=== PATIENT | female | born 1970 | race Caucasian/White ===

== ENCOUNTER 2024-11-30 09:21 | Emergency (ER) | payer MEDICAID, SELFPAY ==
--- OUTSIDE RECORDS SUMMARY | 2020-06-07 14:28 | XMS_ITS | Encounter Summary ---
Author Organization [facility] Address [address] [place] [address] Care Team Providers Care Home Care And Home Health Aides Teacher Name Role Phone Vianey Ann MD Primary Care Provider [phone] Reason for Referral * Hospital - Outpatient (Routine) - Closed Specialty Diagnoses / Procedures Referred By Nisa lopez Referred To Contact Sleep Medicine Diagnoses Snoring Obstructive sleep apnea, adult Procedures Home Sleep Study Tony Chavarria MD [address] [place] [address] Phone: tel: fax: Tony Chavarria MD [facility] [address] [address] Phone: tel: fax: Referral ID Status Reason Start Date Expiration Date Visits Re quested Visits Authorized [id number] Closed 05/24/2020 07/23/2020 1 1 Reason for Visit * Hospital - Outpatient (Routine) - Closed Specialty Diagnoses / Procedures Referred By Nisa lopez Referred To Contact Sleep Medicine Diagnoses Snoring Obstructive sleep apnea, adult Procedures Home Sleep Study Tony Chavarria MD [address] [place] [address], [place] [address] Phone: tel: fax: Tony Chavarria MD [address] [facility] [address] [place] [address] Phone: tel: fax: Referral ID Status Reason Start Date Expiration Date Visits Re quested Visits Authorized [id number] Closed 05/24/2020 07/23/2020 1 1 Encounter Details Date Type Department Care Team (Latest Contact Info) Description 06/07/2020 2:28 PM EDT Hospital Encounter [facility] [address] [facility] [address] [place] [address] Tony Chavarria MD [address] [address], [facility] [address] [place] [address] Snoring; Obstructive sleep apnea, adult [...] Care Team (Late st Contact Info) Description 12/26/2024 10:15 AM EST Office Visit [facility] PRIMARY CARE 107 [facility] [address] [place] [address] Vianey Ann MD 107 [facility] 200 [place] [address] 03/16/2025 8:15 AM EST Office Visit [facility]IMARY [facility] 107 [facility] 200 [place] [address] Vianey Ann MD [address] [facility] 200 [place] [address] 06/28/2025 11:30 AM EDT Office Visit [facility] CARDIOLOGY [address] [place] [address] Cindy Scherer APRN [address] [place] [address] [place] [address] documented as of this encounter [...] index is 37. Patient presents with an [place] Sleepiness Scale of 12/24 Methods used for Home Sleep Testing: Patient had a home sleep test with an [employer] One device that measured airflow at the [...] and follow-up with Dr. Seth Chavarria MD [facility] Sleep Medicine Pulmonary and Critical Care Medicine [...] documented as of this encounter Care Teams Home Care And Home Health Aides Teacher Relationship Specialty Start Date End Date Vianey Ann MD [address] [place] [address] PCP - General Family Medicine 10/19/14 documented as of this encounter
--- OUTSIDE RECORDS SUMMARY | 2020-07-18 19:45 | XMS_ITS | Encounter Summary ---
Author Organization [facility] Address [address] [place] [address] Care Team Providers Care Risk Investigator Name Role Phone Vianey Ann MD Primary Care Provider [phone] Reason for Referral * Hospital - Outpatient (Routine) - Closed Specialty Diagnoses / Procedures Referred By Nisa lopez Referred To Contact Sleep Medicine Diagnoses ROZINA (obstructive sleep apnea) Snoring Procedures Polysomnography 4 or More Parameters Tony Chavarria MD [address] [address], [facility] [address] [place] [address] Phone: tel: fax: [facility] [address] [address] Phone: tel: fax: Referral ID Status Reason Start Date Expiration Date Visits Re quested Visits Authorized [id number] Closed 06/17/2020 06/17/2021 1 1 Reason for Visit * Hospital - Outpatient (Routine) - Closed Specialty Diagnoses / Procedures Referred By Nisa lopez Referred To Contact Sleep Medicine Diagnoses ROZINA (obstructive sleep apnea) Snoring Procedures Polysomnography 4 or More Parameters Tony Chavarria MD 9 [facility] 1, [facility] [address] [place] [address] Phone: tel: fax: [facility] [address] [address] [place] [address] Phone: tel: fax: Referral ID Status Reason Start Date Expiration Date Visits Re quested Visits Authorized [id number] Closed 06/17/2020 06/17/2021 1 1 Encounter Details Date Type Department Care Team (Latest Contact Info) Description 07/18/2020 7:45 PM EDT Hospital Encounter [facility] [address] [place] [id number] Tony Chavarria MD [address] [place] [address], [place] [id number] ROZINA (obstructive sleep apnea); Snoring Social History [...] Description 12/26/2024 10:15 AM EST Office Visit [facility] [address] [address] Vianey Ann MD [address] [address] 03/16/2025 8:15 AM EST Office Visit [facility] [address] [address] Vianey Ann MD [address] [address] 06/28/2025 11:30 AM EDT Office Visit [facility] [address] [place] [address] Cindy Scherer APRN [address] [place] [address] [place] [address] documented as of this encounter Procedures Procedure [...] index is 37. Patient presents with an [place] Sleepiness Scale of 12/24 Methods used for [...] and follow-up with Dr. Seth Chavarria MD [facility] Sleep Medicine Pulmonary and [...] documented as of this encounter Care Teams Risk Investigator Relationship Specialty Start Date End Date Vianey Ann MD [address] [place] [address] PCP - General Family Medicine 10/19/14 documented as of this encounter
--- OUTSIDE RECORDS SUMMARY | 2020-08-22 08:00 | XMS_ITS | Encounter Summary ---
Author Organization [facility] Address [address] [place] [address] Care Team Providers Care Cdl B Driver Name Role Phone Vianey Ann MD Primary Care Provider [phone] Reason for Referral * Diagnostic Imaging (Routine) - Closed Specialty Diagnoses / Procedures Referred By Contanthony t Referred To Contact Sleep Medicine Diagnoses Excessive daytime sleepiness Insomnia, unspecified type Procedures EEG [place], ALEKS [address] [address], [address] [address] Phone: tel: fax: [facility] [address] [place] [address] Phone: tel: Referral ID Status Reason Start Date Expiration Date Visits Re quested Visits Authorized [id number] Closed 07/25/2020 07/25/2021 1 1 Reason for Visit * Diagnostic Imaging (Routine) - Closed Specialty Diagnoses / Procedures Referred By Contac t Referred To Contact Sleep Medicine Diagnoses Excessive daytime sleepiness Insomnia, unspecified type Procedures EEG [place] APRN [address] [address], [address] [address] Phone: tel: fax: [facility] [address] [place] [address] Phone: tel: Referral ID Status Reason Start Date Expiration Date Visits Re quested Visits Authorized [id number] Closed 07/25/2020 07/25/2021 1 1 Encounter Details Date Type Department Care Team (Latest Contact Info) Description 08/22/2020 8:00 AM EDT Hospital Encounter [facility] [address] [place] [address] [place], TASSEL CLIPPER 789 [facility] 1, [address] [place] [address] Excessive daytime sleepiness; Insomnia, unspecified [...] Description 12/26/2024 10:15 AM EST Office Visit [facility] [address] [address] Vianey Ann MD [address] [address] 03/16/2025 8:15 AM EST Office Visit [facility] [address] [address] Vianey Ann MD [address] [facility] 200 [place] [address] 06/28/2025 11:30 AM EDT Office Visit [facility] [address] [place] [address] Cindy Scherer APRN [address] [place] [address] documented as of this encounter [...] seen This report is transcribed using the [employer] dictation system. Narrative NEUROLOGY - 08/22/2020 10:24 [...] documented as of this encounter Care Teams Cdl B Driver Relationship Specialty Start Date End Date Vianey Ann MD [address] [place] [address] PCP - General Family Medicine 10/19/14 documented as of this encounter
[2024-11-30 09:31] VITALS: BP 135/60; PULSE 93; O2SAT 98
[2024-11-30 09:32] VITALS: BP 135/60; PULSE 63; RESP 18; TEMP 36.6; O2SAT 99; BMI 32.8
[2024-11-30 09:34] LABS: Color,Urine YELLOW (Yellow); Glucose,Urine (UA) Negative (Negative); Ketones,Urine Negative (Negative); Leukocyte Esterase,Urine Negative (Negative); Microscopic, Urine URINE MICROSCOPIC (MICROSCOPIC); PH,Urine 6.0 (5.0-8.5); Protein,Urine TRACE (Negative); Specific Gravity, Urine 1.025 (1.005-1.030); Urobilinogen,Urine 1.0 EU/dl (0.2)
--- NOTE | 2024-11-30 09:38 | ED_ITS ---
Discharge Plan Disposition Patient Disposition: Home, Self-Care Prescriptions Prescriptions: New methocarbamol 500 mg tablet 500 mg PO QID PRN (Reason: muscle spasm) Qty: 120 0RF lidocaine 5 % adhesive patch,medicated 1 patch topical DAILY Qty: 15 0RF Rx Instructions: leave on most painful area for up to 12 hrs Referrals Follow up/Referrals: Vianey Ann MD [Primary Care Provider, Medical] - See instructions Activity Restrictions/Add. Instructions Additional Instructions/Restrictions: You likely have a strain of the muscles of your lower back. You can take kqra-[id number] ibuprofen, 600 mg every 6 hours as needed along with 1000 mg of Tylenol every 6 hours as needed. You are being prescribed Robaxin, a muscle relaxer, as well as lidocaine patches. Take these as prescribed. I recommend frequent stretching to keep your back loose. You likely be sore over the next few days. If your symptoms do not improve, or if you have any new or worsening symptoms, or if you become concerned for your health for any reason, return to the emergency department for evaluation. Clinical Impressions Clinical Impression: Strain of lumbar region Instructions Patient Instructions: DI for Low Back Pain Print Language Print Language: Korean Discharge ED Provider: Jairo Hidalgo General Adult HPI General Chief complaint: Back Pain/Injury Stated complaint: AO 11/29 Back Pain Time Seen by Provider: 11/30/24 09:31 Mode of Arrival: Ambulatory Source of Information: Patient Description of Symptoms (Recalled from ER Triage Doc. by RN): Reports lifting a cinder block last night and then began to have lower back pain. History of Present Illness HPI narrative: Beatris Perry is a 54y female with no significant past medical history who comes in for back pain. Patient states that yesterday, she was helping her mom move and was moving several boxes and moved a cinderblock and had an pain in her left lower back above her pelvis. She states that moving makes the pain worse. She states it does not radiate down her leg. She states that she does not have pain in the middle of her back. She has not had fevers. She has not had dysuria or hematuria. She denies any numbness or tingling in her genital area, she denies any weakness in her extremities. She denies any urinary incontinence or retention. She has tried topical Biofreeze without relief. Related Data Previous Rx's ?Medication ?Instructions ?Recorded lidocaine 5 % topical patch 1 patch topical DAILY #15 ea 11/30/24 methocarbamol 500 mg tablet 500 mg PO QID PRN muscle s pasm 11/30/24 #120 tabs Allergies Allergy/AdvReac Type Severity Reaction Status Date / Time No Known Allergies Allergy Verified 11/30/24 09:34 [facility] Disclaimer: The information contained in this section may have been updated after the [place] ent was seen, as this information can be updated by other users. Social History Smoking Status: Never smoker alcohol intake: never current occupational status: employed Travel in the last 8 weeks?: None ROS Obtained: Yes Systems reviewed as appropriate & no additional complaints except as documented Physical Exam General General appearance: alert and in no apparent distress Head Head exam: atraumatic Eye Eye exam: Present normal appearance ENT ENT exam: Present normal external ear exam Neck Neck exam: Present full ROM Chest Chest inspection: Present symmetric chest wall rise Respiratory Respiratory exam: Present normal lung sounds bilaterally; Absent respiratory distress Cardiovascular Cardiovascular exam: Present regular rate and normal rhythm Abdominal Exam Abdominal exam: Present soft; Absent tenderness or guarding Extremities Exam Extremities exam: Present normal inspection Back Exam Back exam: Present normal inspection, tenderness (left lumbar paraspinal tenderness) and paraspinal tenderness; Absent vertebral tenderness Neurological Exam Neurological exam: Present alert and oriented X3; Absent motor sensory deficit (Full strength with plantar and dorsiflexion of bilateral lower extremities. Difficulty lifting left leg off of bed secondary to pain in her left lower back. Pain does not radiate down the leg) Psychiatric Psychiatric exam: Present normal affect Skin Skin exam: Present warm and dry Medical Decision Making Medical Records Screening: Per USPSTF and CDC recommendations, given the prevalence of disease in our region, it is our hospital?s policy to screen for HIV and viral Hepatitis for all patients aged 18 and over and those with ongoing risk factors. Rick Inquiry Pt receiving controlled substance: No Vital Signs: 11/30/24 09:31 11/30/24 09:32 11/30/24 09:40 Temperature 97.9 F Temperature Source Oral Pulse Rate 93 H 89 Pulse Rate [Radial] 63 Respiratory Rate 18 Blood Pressure 135/60 117/70 Blood Pressure [Right Arm] 135/60 Blood Pressure Mean [Right Arm] 85 Blood Pressure Source Blood Pressure Source [Right Arm] Automatic Cuff Blood Pressure Position Blood Pressure Position [Right Arm] Sitting 02 Sat by Pulse Oximetry 98 99 98 Oxygen Delivery Method Room Air Room Air Room Air 11/30/24 10:18 Temperature 98.0 F Temperature Source Oral Pulse Rate 85 Pulse Rate [Radial] Respiratory Rate 18 Blood Pressure 125/85 Blood Pressure [Right Arm] Blood Pressure Mean [Right Arm] Blood Pressure Source Automatic Cuff Blood Pressure Source [Right Arm] Blood Pressure Position Sitting Blood Pressure Position [Right Arm] 02 Sat by Pulse Oximetry Oxygen Delivery Method Room Air Lab Data Lab Results 11/30/24 09:28: Urine Color Yellow, Urine Appearance Sl cloudy, Urine pH 6.0, Ur Specific [place] 1.025, Urine Protein Trace, Urine Glucose (UA) Negative, Urine Ketones Negative, Urine Blood Negative, Urine Nitrate Negative, Urine Bilirubin 1+ A, Urine Urobilinogen 1.0, Ur Leukocyte Esterase Negative, Urine RBC Occasional, Urine WBC Occasional, Ur Squamous Epith Cells 20-50, Urine Bacteria 2+ Orders (Tests/Meds): ED MEDICATIONS Discontinued Medications Generic Name Dose Route Start Last Admin Trade Name Rodri PRN Reason Stop Dose Admin Acetaminophen 1,000 mg 11/30/24 09:37 11/30/24 09:47 Acetaminophen 500mg Tab PO 11/30/24 09:38 1,000 mg ONCE ONE Administration Ketorolac Tromethamine 15 mg 11/30/24 09:37 11/30/24 09:47 Ketorolac 15mg/Ml Vial IM 11/30/24 09:38 15 mg ONCE ONE Administration Lidocaine 1 each 11/30/24 09:37 11/30/24 09:47 Lidocaine 5% Transdermal Patch TD 11/30/24 09:38 1 each ONCE ONE Administration Methocarbamol 500 mg 11/30/24 09:37 11/30/24 09:47 Methocarbamol 500mg Tablet PO 11/30/24 09:38 500 mg ONCE ONE Administration ORDERS Category Date Time Status UA [Urinalysis and Microscopic] Stat Lab 11/30/24 09:28 Completed Urine Culture Stat Micro 11/30/24 09:28 Received Medical Decision Narrative: Beatris Perry is a 54y female with no significant past medical history who comes in for back pain. Patient states that yesterday, she was helping her mom move and was moving several boxes and moved a cinderblock and had an pain in her left lower back above her pelvis. She states that moving makes the pain worse. She states it does not radiate down her leg. She states that she does not have pain in the middle of her back. She has not had fevers. She has not had dysuria or hematuria. She denies any numbness or tingling in her genital area, she denies any weakness in her extremities. She denies any urinary incontinence or retention. She has tried topical Biofreeze without relief. On arrival, patient is hemodynamically stable, in no acute distress, afebrile, maintaining appropriate oxygen saturation on room air. Physical exam, as stated above, revealed an overall well-appearing female who is sitting upright in bed. She has tenderness over the left lumbar paraspinal area. She has full strength and sensation to bilateral lower extremities with dorsi and plantarflexion. She has some mild limited ability to lift the left leg off the bed secondary to pain in her left lower back. She has no lumbar mid spine tenderness. She has no red flag symptoms for cauda equina or spinal cord pathology. I have low concern for urinary pathology as she is not having any urinary symptoms and has no pain at the area of the kidneys. Urinalysis shows no evidence of infection. X-ray and CT imaging were considered, however patient's pain appears musculoskeletal in nature and these are not indicated at this time. Will administer 15 mg IM Toradol, 500 mg of oral Robaxin, lidocaine patch and 1000 mg of Tylenol. Recommend stretching and continue Tylenol, ibuprofen, lidocaine patches and muscle relaxers at home and follow-up with her primary care physician. Return precautions were given. All questions were answered. She demonstrated understanding and was in agreement with the plan. She was then discharged from the emergency department in stable condition Critical Care Critical Care Time Critical Care Time: No
[2024-11-30 09:40] VITALS: BP 117/70; PULSE 89; O2SAT 98
[2024-11-30 09:44] LABS: Bilirubin,Urine 1+ (Negative)
[2024-11-30 09:45] LABS: Squamous Epithelial Cell,Urine 20-50 #/hpf (0-5); WBC,Urine Occasional #/hpf (0-3)
[2024-11-30 09:46] LABS: Bacteria,Urine 2+ /lpf; RBC,Urine Occasional #/hpf (0-3)
[2024-11-30] MEDS: METHOCARBAMOL 500MG TABLET 500 MG PO (09:47)
[2024-11-30] MEDS: LIDOCAINE 5% TRANSDERMAL PATCH 1 EACH TD (09:47)
[2024-11-30] MEDS: ACETAMINOPHEN 500MG TAB 1000 MG PO (09:47)
[2024-11-30] MEDS: KETOROLAC 15MG/ML VIAL 15 MG IM (09:47)
[2024-11-30 10:18] VITALS: BP 125/85; PULSE 85; RESP 18; TEMP 36.7; O2SAT 95
--- OUTSIDE RECORDS SUMMARY | 2024-11-30 10:40 | XMS_ITS | Clinical Summary ---
Author Organization [employer] ([place], [place], [place], [place]) Address [address] [place] [address] Care Team Providers Care Spinning Supervisor Name Role Phone Vianey Ann MD Primary Care Provider + [phone] Beulah Shay MD Unavailable [phone] Social History Tobacco Use Types Packs/Day Years Used Date Smoking Tobacco: Never Assessed Food Insecurity Answer Date Recorded Food run out past 12 months Not on file 02/08 Food did not last past 12 months Not on file 02/26/2023 Employment Answer Date Recorded Help finding and keeping a job Not on file 0 02/26/2023 Family and Community Support Answer Jose e Recorded Help with Day to Day Activities Not on file 02/26/2023 Feeling Lonely or Isolated Not on file 02/26 Educational Attainment Answer Date Scott rded Speak language other than Italian at home Not on file 02/26/2023 Want help with school or training Not on file 02/26/2023 Substance Use Answer Date Recorded Used prescription meds for non-medical reasons N ot on file 02/26/2023 Used illegal drugs past 12 months Not on file 02/26/2023 Comments Unknown Sex and Gender Information Value Date Recorded Sex Assigned at Not on file Legal Sex Female 3:07 PM CDT Gender Identity Not on file Sexual Orientation Not on file Plan of Treatment Health Maintenance Due Date Last Done Comments CT Colonography 1972 Colonoscopy 1972 Colorectal Cancer Screening 1972 FOBT/FIT 1972 Fit-DNA (Cologuard) 1972 Sigmoidoscopy 1972 Depression Screening (12+) 1984 Tobacco Cessation Counseling and Screening (12+) 1984 HIV Screening 11/04/1987 Hepatitis C Screening 1990 Pap Smear 1993 Pneumococcal 50+ years (1 of 1 - PCV) 2022 Shingles Vaccine (Zoster) (1 of 2) 2022 Lipid Panel 03/24/2024 03/24/2019 COVID-19 VACCINE (4 - 2024-2 6 season) 2024 02/10/2021, 05/02/2020, 04/05/2020 Influenza Vaccine (#1) 2024 Breast Cancer Screening 07/06/2025 07/07/19 24, 05/06/2022, 05/05/2021, Additional history exists DTAP/TDAP/TD VACCINES (5 - T d or Tdap) 02/12/2033 02/12/2023, 09/05/2014, 07/04/2006, Additional history exists Procedures Procedure Name Priority Date/Time Associated Diagnosis Comments MM DIGITAL MAMMO SCREEN WITH KELLY BILATERAL Routine 07/07/2023 9:30 AM EDT Visit for screening mammogram LIPID PANEL Routine 03/24/2019 2:01 PM EST from Last 3 Months or Most Recently Relevant to Health Maintenance Results * MM digital mammo screen with kelly bilateral (07/07/2023 9:30 AM EDT) Anatomical Region Laterality Modality Breast Bilateral Mammography 07/09/2023 3:54 PM EDT Impressions 07/09/2023 3:58 PM EDT FINAL IMPRESSION: No mammographic evidence of malignancy. BI-RADS: ACR BI-RADS 1: Negative. RECOMMENDATIONS: Annual Screening Mammography This report will serve as an order for any recommended procedure(s). A letter including results and recommendations was sent to the patient. Density notification was provided to patients with dense breast tissue pattern. Patient information entered into a reminder system with a target due date for the next mammogram. At our facility, a blackfeet marker is positioned over a visible skin lesion and a linear marker is used to indicate a scar. A triangular marker is placed on a self reported palpable finding. Note: Mammography does not detect approximately 10-15% of breast cancers. An annual clinical breast exam by the patient's breast care physician and regular monthly self breast exams by the patient are integral parts of breast cancer screening, in addition to annual mammography. A normal mammogram does not completely exclude the presence of breast cancer, especially if there is an abnormal finding on physical exam. When clinically indicated, a biopsy should not be deferred because of a normal mammogram report. Narrative 07/09/2023 3:58 PM EDT PROCEDURE: Bilateral digital screening mammogram with tomosynthesis. REASON FOR EXAM: Routine screening. FAMILY HISTORY: No family with history of breast cancer. COMPARISON STUDY: 8 mammograms between April 2022 and October 2017. FINDINGS: Craniocaudal and mediolateral oblique images were obtained in 2D, C-view, and 3D modes. This examination was reviewed with the benefit of computer-aided detection (CAD). The breasts are almost entirely fatty. There are no suspicious findings. Vianey Ann MD IM MAMMOGRAPHY ORDERABLES F inal Result * (ABNORMAL) LIPID PANEL (03/24/2019 2:01 PM EST) Triglyceride 49 0 - 249 mg/dL 03/24/2019 7:42 PM EST Cholesterol HDL 88.0 mg/dL 0 7:42 PM EST Comment: Desirable > 60 mg/dl Increased Risk < 40 mg/dl Cholesterol Total 232(H) 0 - 199 mg/dL 03/24/2019 7:42 PM EST Comment: 200 to 239 mg/dL Moderate (borderline) >239 mg/dL High Cholesterol VLDL Calculation 9.8 5.0 - 40.0 mg/dL 03/24/2019 7:43 PM EST Comment:Calculated by Discer n Rule [email or web address] Cholesterol LDL Calculation 134.2(H) 0.0 - 99.0 mg/dL 03/24/2019 7:42 PM EST Comment: DESIRABLE <130 BORDERLINE 130 to 159 HIGH >=160 Cholesterol/HDL Ratio 2.6 0.0 - 3.2 03/24/2019 7:42 PM EST LDL/HDL Ratio 1.5 0.0 - 3.2 03/24/2019 7:42 PM EST Blood 03/24/2019 2:01 PM EST 03/24/2019 7:11 PM EST [facility] Historical Provider PATHOLOGY/CYTOLOGY ARONNai BRADLEY Final Result [facility] [address] [place] [address], [facility] [phone] from Last 3 Months or Most Recently Relevant to Health Maintenance Insurance [employer] [facility] Care Teams Spinning Supervisor Relationship Specialty Start Date End Date Vianey Ann MD [address] [facility] [address] [place] [address] PCP - General Family Medicine 05/06/22 Beulah Shay MD [address] [facility] [address] [place] [address] Referring Physician Obstetrics/Gynecology 05/06/22
--- OUTSIDE RECORDS SUMMARY | 2024-11-30 10:40 | XMS_ITS | Encounter Summary ---
Author Organization [employer] ([place], [place], [place], [place]) Address [address] [place] [address] Care Team Providers Care Sap Portal Developer Name Role Phone Vianey Ann MD Primary Care Provider + [phone] Beulah Shay MD Unavailable [phone] Encounter Details Date Type Department Care Team (Late st Contact Info) Description 08/01/2018 Transcribed Document [facility] Family Medicine [facility] [place] [address] ProviderFarhan MD [address] [place] [id number] Social History Tobacco Use Types Packs/Day Years Used Date Smoking Tobacco: Never Assessed Comments Unknown Sex and Gender Information Value Date Recorded Sex Assigned at Not on file Legal Sex Female 3:07 PM CDT Gender Identity Not on file Sexual Orientation Not on file documented as of this encounter Miscellaneous Notes * Cerner Conversion Note - Farhan ProviderMD - 08/01/2018 11:34 AM CDT Pre Procedure Adult Entered On: 08/01/2018 11:41 EDT Performed On: 08/01/2018 11:34 EDT by Gail Clarke RN Height and Weight, Clinical Dosing Height Source : Stated Height Entry Format : [place]fall Height, Feet : 5 ft(Converted to: 152 cm, 60 Inch) Height, Inches : 0 Inch(Converted to: 0 ft 0 Inch, 0.00 cm) Clinical Height : 152.4 cm Weight Source : Standing scale Weight Entry Format : Westfall Clinical Dosing Weight : 73.75 kg Weight, Pounds : 162 lb Weight, Ounces : 4 oz Body Surface Area (BSA) : 1.71 m2 Body Mass Index : 31.8 kg/m2 (HI) [place] Body Weight : 45 kg Gail Clarke RN - 08/01/2018 11:34 EDT Health Histories Smoking Status : Never (less than 100 in lifetime; none in last 30 days) Smokeless Tobacco Status : Never Gail Clarke RN - 08/01/2018 11:34 EDT Social History (As Of: 08/01/2018 11:41:10 EDT) Tobacco: Smoking Status Never smoker. Second Hand Smoke Exposure: Yes. (Last Updated: 07/16/2015 16:34:16 EDT by DANNY TRAYLOR RN) Alcohol: Date/Time of Last Drink: one per month. (Last Updated: 07/16/2015 16:34:45 EDT by DANNY TRAYLOR RN) Substance Abuse: Comments: 07/16/2015 16:35 - DANNY TRAYLOR RN: none (Last Updated: 07/16/2015 16:35:07 EDT by DANNY TRAYLOR RN) Infectious Disease History Infectious Disease History : Chicken pox/Shingles Fever/Chills Last 48 Hours : No Travel To Regions with Travel Advisories : No Travel Outside [place] Within Last 30 Days : No Contact With Traveler to Advisory Region : No Tuberculosis Symptoms : None Gail Clarke RN - 08/01/2018 11:34 EDT Anesthesia/Transfusion History Family History of Anesthesia Reaction : No prior transfusion(s) Transfusion History : Prior anesthesia without reaction Family History of Anesthesia Reaction : None Gail Clarke RN - 08/01/2018 11:34 EDT Functional Assessment Living Situation : Home Patient Lives With : Dependent Child/Children Current Home Treatments : None Gail Clarke RN - 08/01/2018 11:34 EDT Psychosocial History Do You Have a History of the Following? : Anxiety Currently in Unsafe Situation : No Tried to Harm Yourself in the Past? : No Thoughts of Harming/Killing Yourself : No Gail Clarke RN - 08/01/2018 11:34 EDT Advance Directive Patient has Advance Directive *Q : No, patient refuses Advance Directive information Gail Clarke RN - 08/01/2018 11:34 EDT Teaching/Learning Assessment Barriers To Learning : None evident Individuals Taught : Patient, Spouse Readiness to Learn : Cooperative Baseline Knowledge of Topic : Good Readiness to Learn : Explanation, Printed materials Gail Clarke RN - 08/01/2018 11:34 EDT General Info Legal Guardian : No Support Person/Patient Dust Puller : Yes Support Person/Pt Rep Name : Dimple Son Contact Password : [id number] Support Person/Pt Rep Contact Information : [phone] Want Family/Rep/Phys Notified of Admit : Yes Name/Contact Info Fam/Rep Notified Adm : kranthi Name/Contact Info Physician Notified Adm : EUGENERUDDYSTEPHEN Emergency Contact #1 : HENRY Emergency Contact #1 Emergency Contact #1 Relationship : CHILD Emergency Contact #2 : NA Emergency Contact #2 Phone Number : NA Emergency Contact #2 Relationship : NA Primary Language : Turkish Communication Barrier : None Gail Clarke RN - 08/01/2018 11:34 EDT Sleep Apnea Risk Assmt Hx of Obstructive Sleep Apnea Diagnosis : No Snore Loudly : No Tired, Fatigued, or Sleepy During Day : No Observed Stopping Breathing During Sleep : No Have/Are Being Treated for Hypertension : No BMI Greater Than 35 kg/m2 : No Age over 50 Years Old : No Neck Circumference Greater Than 40 cm : No Gender Male : No STOP-BANG Sleep Apnea Risk Level Score : 0 Gail Clarke RN - 08/01/2018 11:34 EDT Aravind Scale Aravind Sensory Perception : No impairment Aravind Moisture : Occasionally moist Aravind Activity : Walks occasionally Aravind Mobility : No limitation Aravind Nutrition : Adequate Aravind Friction and Shear : No apparent problem Aravind Score : 20 Gail Clarke RN - 08/01/2018 11:34 EDT Pain Assessment Pain Assessment : Initial assessment Pain Scale Goal : 5 Pain Scale Used : 0-10 Scale Gail Clarke RN - 08/01/2018 11:34 EDT Fall Risk Scales ABCs Fall Injury Risk Identification : None VELA Hx Falls Immediate/Within 3 Months : No Vela Secondary Diagnosis : No VELA Use of Ambulatory Aid : None VELA IV Therapy or IV Access : Yes Vela Gait/Transferring : Normal, bedrest, immobile Vela Mental Status : Oriented to own ability Vela Fall Risk Score : 20 VELA Fall Scale Risk Level : 0-24 Low Risk Warren Fall Interventions : Adequate lighting, Bed in low position, Personal items within reach, Reinforced to call for assistance before getting out of bed, Room free of clutter/spills, Upper side-rails up, Wheels locked, Wires/Cords secured Gail Clarke RN - 08/01/2018 11:34 EDT Valuables and Belongings Valuables and Belongings : Clothing Clothing : Common streetwear Clothing Disposition : Bedside Gail Clarke RN - 08/01/2018 11:34 EDT Pain Scale Intensity : 0 Gail Clarke RN - 08/01/2018 11:34 EDT Image 4 - Images currently included in the form version of this document have not been included in the text rendition version of the form. documented in this encounter Plan of Treatment Not on file documented as of this encounter Visit Diagnoses Not on filedocumented in this encounter Care Teams Sap Portal Developer Relationship Specialty Start Date End Date Vianey Ann MD [address] [place] [address] [address] [place] [address] PCP - General Family Medicine 05/06/22 Beulah Shay MD [address] [facility] [address] [place] [address] Referring Physician Obstetrics/Gynecology 05/06/22 documented as of this encounter
--- OUTSIDE RECORDS SUMMARY | 2024-11-30 10:40 | XMS_ITS | Clinical Summary ---
Author Organization [facility] Address [address] [place] [address] Care Team Providers Care It Account Manager Name Role Phone Vianey Ann MD Primary Care Provider [phone] Allergies Active Allergy Reactions Criticality Noted Date Comments Adhesive Tape Rash Medium 12/06/2018 Medications hydrOXYzine pamoate (VISTARIL) 100 MG capsuleIndications :Anxiety,Inability to sleep TAKE ONE CAPSULE BY MOUTH EVERY NIGHT AT BEDTIME. MAY TAKE ONCE MORE THROUGHOUT THE DAY NEEDED FOR ANXIETY 90 capsule 3 12/10/19 24 Active ibuprofen (ADVIL,MOTRIN) 800 MG tabletIndications: Migraine with aura and without status migrainosus, not intractable Take 1 tablet by mouth Every 8 (Eight) Hours As Needed for Moderate Pain or Headache. 270 tablet 3 12/10/19 24 Active rizatriptan SR. CONSULTANT (MAXALT-SR. CONSULTANT) 10 MG disintegrating tabletIndications: Migraine with aura and without status migrainosus, not intractable Place 1 tablet on the tongue 1 (One) Time As Needed for Migraine. 27 tablet 3 12/10/19 24 Active traZODone (DESYREL) 50 MG tabletIndications: Inability to sleep Take 1 tablet by mouth Every Night. 90 tablet 3 12/10/19 24 Active metroNIDAZOLE (METROGEL) 0.75 % gel Apply topically to the appropriate area as directed 2 (Two) Times a Day. 06/06/19 25 Active azelaic acid (AZELEX) 15 % gel Apply 1 Application topically to the appropriate area as directed. 06/06/19 25 Active doxycycline (VIBRAMYCIN) 100 MG capsule Take 1 capsule by mouth 2 (Two) Times a Day. Active omeprazole (priLOSEC) 20 MG capsule Take 1 capsule by mouth Daily. Active Misc Natural Products (NF FORMULAS TESTOSTERONE PO) Take by mouth. With estradiol po compound Active desvenlafaxine (PRISTIQ) 50 MG 24 hr tabletIndications: Mixed anxiety and depressive disorder,Menopausa l flushing Take 1 tablet by mouth Daily. 90 tablet 3 07/29/19 25 Active ondansetron ODT (ZOFRAN-ODT) [address] 1 tablet on the tongue Every 8 (Eight) Hours As Needed for Nausea or Vomiting. 20 tablet 1 09/08/19 25 Active QUEtiapine (SEROquel) 25 MG tabletIndications: Insomnia, unspecified type Take 1 tablet by mouth Every Night. 90 tablet 1 09/28/19 25 Active Tirzepatide-Weight Management (ZEPBOUND) 7.5 MG/0.5ML solution auto-injector Inject 0.5 mL under the skin into the appropriate area as directed 1 (One) Time Per Week. 2 mL 11/18/19 25 Active Tirzepatide-Weight Management (ZEPBOUND) 5 MG/0.5ML solution auto-injectorIndic ations:Obstructive sleep apnea Inject 0.5 mL under the skin into the appropriate area as directed 1 (One) Time Per Week. 2 mL 3 09/28/19 25 025 Discontin ued(Dose adjustmen t) Active Problems Problem Noted Date Diagnosed Date Insomnia 07/28/2024 Assessment & Plan (09/27/2024 12:02 PM EDT): Improved sleep. Continue current medicines. Could consider progesterone nightly if issue worsens Mixed anxiety and depressive disorder 12/06/2023 Assessment & Plan (09/27/2024 12:02 PM EDT): Improved with current medicines. Continue. Assessment & Plan (07/28/2024 10:49 AM EDT): Thinks she's on 100 mg Pristiq. If on 100 cut back to 50 mg. Referral to therapist downstairs. Stay off Wellbutrin. Menopausal flushing 11/10/2023 Assessment & Plan (09/27/2024 12:02 PM EDT): Improved with current medicine. No change today on SNRI. Has seen keno clerk for hormone replacement therapy. Night sweats 11/10/2023 Obstructive sleep apnea 05/18/2023 Overview (07/28/2024): Polysomnography 4 or More Parameters (04/10/2023) Assessment & Plan (09/27/2024 12:01 PM EDT): Continue CPAP and insurance now covering Zepbound. Assessment & Plan (07/07/2024 9:40 AM EDT): Continue CPAP. Followed by sleep medicine No contraindications to glp-1. Zepbound is FDA approved for ROZINA. Assessment & Plan (06/30/2024 1:01 PM EDT): Patient has a baseline AHI 5 that increases to 13 in REM. This is mild sleep apnea. Download shows suboptimal compliance with good control. Patient reports that she cares for her grandson at night and sometimes has to get up with him and then she is unable to put her PAP device back on. She states she tries to wear it every single night but there are nights when he is there that she falls asleep without it. Patient reports she feels like her sleep is well rested. Patient has been encouraged to increase her usage of her PAP therapy to all hours of sleep including napping. Sleep risk and hygiene reviewed. She denies any daytime sleepiness or fatigue the nights that she wears her PAP device. Patient is receiving benefit from PAP therapy. Plan to continue current treatment. Prescription sent to DME of patient choice for CPAP supplies. Follow-up in 1 year or sooner for any ROZINA or PAP concerns. Assessment & Plan (07/07/2023 12:55 PM EDT): Patient was recently diagnosed with ROZINA and is here for 31-90-day compliance visit. Download reviewed and interpreted today. Compliance is 93%, when used >4 hours is 73%. Average use per night is 5 hours and 19 minutes. AHI 0.7. She is using a nasal mask and doing well with that. Airflow is comfortable. She denies excessive daytime sleepiness or fatigue. She has noticed a significant improvement in daytime fatigue. - Continue PAP therapy at current settings - Follow-up in 1 year Assessment & Plan (05/18/2023 2:50 PM EDT): Patient recently completed a PSG that showed mild ROZINA with an overall AHI of 5, AHI increased to 13 in REM sleep. Desaturations 20 to 83%. PAP therapy was initiated and patient is here today for follow-up visit. Patient has been using CPAP therapy for approximately 2 weeks now. Download reviewed and interpreted today. Compliance is 67%, AHI 0.9. - Decrease pressure settings to 6-16 cm - Follow-up in 2 months for 31-90-day compliance visit. Excessive daytime sleepiness 11/19/2022 Assessment & Plan (11/19/2022 2:39 PM EDT): Patient has a history of hypersomnia and is currently on armodafinil prescribed by her primary care provider. She also takes hydroxyzine and trazodone to help her sleep at night. She reports worsening daytime sleepiness and fatigue. She had a sleep study several years ago that was nondiagnostic. She feels like symptoms have worsened since that time and she is also gained weight and is concerned about ROZINA. Binge eating disorder 03/02/2019 Overview (08/21/2019): Failure x 2 trials of Vyvanse (sleep disturbance) Obesity due to excess calories with serious tahira rbidity 12/06/2018 Overview (07/07/2024): Associated with hyperlipidemia, obstructive sleep apnea Assessment & Plan (09/27/2024 12:01 PM EDT): Patient's (Body mass index is 34.99 kg/m .) indicates that they are obese (BMI >30) with health conditions that include obstructive sleep apnea and dyslipidemias . Weight is improving with treatment. BMI is above average; BMI management plan is completed. We discussed portion control, increasing exercise, and pharmacologic options including Zepbound for ROZINA. Emphasized protein in diet to fight potential muscle loss Can adjust dose between visit if needed, stay at 5 mg if continues to help Weight check 3 months Assessment & Plan (07/07/2024 9:39 AM EDT): Patient's (Body mass index is 36.39 kg/m .) indicates that they are morbidly/severely obese (BMI > 40 or > 35 with obesity - related health condition) with health conditions that include obstructive sleep apnea and dyslipidemias . Weight is worsening. BMI is above average; BMI management plan is completed. We discussed portion control, increasing exercise, and pharmacologic options including Zepbound for ROZINA. 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 Can consider 60 mg if anxiety worsens down the road. 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 - Stress echo and echocardiogram for further evaluation Viral upper respiratory tract infection 03/06/2021 05/29/2021 Urticaria due to drug allergy 06/05/2020 07/28/2024 Seizures 01/10/2016 01/12/2022 Category 3 mammography resul t with short follow-up interval suggested for probably benign finding 08/15/2015 07/07/2024 Overview (08/15/2015): Description: 3-19-15. Sore throat 08/15/2015 12/06/2018 Endometriosis 05/21/2015 07/28/2024 Encounters Date Type Department Care Team Description 09/27/2024 10:15 AM EDT Office Visit [facility] [address] [place] [phone] Vianey Ann MD Class 1 obesity due to excess calories with serious comorbidity and body mass index (BMI) of 34.0 to 34.9 in adult (Primary Dx); Obstructive sleep apnea; Insomnia, unspecified type; Mixed anxiety and depressive disorder; Menopausal flushing 09/27/2024 Travel from Last 3 Months Immunizations Immunization Administration Dates Next Due COVID-19 (AeroFS) Purple Cap Monovalent 05/03/19,04/05/2020 Flu Vaccine Intradermal Quad 18-64YR 12/15/2007, 11/23/2006 Flu Vaccine Quad PF 6-35MO 11/13/2019 Flu Vaccine Quad PF >36MO 11/13/2019 Fluzone (or Fluarix & Flulav al for VFC) >6mos 12/12/2021 Hepatitis A 09/07/2017,06/10/2017 Hepatitis B 02/10/2017,09/05/2014,07/08/2000 Hepatitis B Adult/Adolescent IM 02/10/2017,09/05,07/08/2000 Influenza TIV (IM) 12/15/2007,11/23/2006 Influenza recombinant 03/24/2024 MMR 07/20/2000 PCV21 (CAPVAXIVE) 06/05/2024 Shingrix 06/07/2024,03/24/2024 Td (TDVAX) 07/04/2006,07/09/1994 Tdap 06/05/2024,02/12/2023,09/05/2014 Family History Medical History Relation Name Comments Cancer Father Jonathan Rotommye Throat & esphag us Cancer Maternal Grandfather Elaine Mathew brain Diabetes Maternal Grandfather Elaine Mathew Obesity Maternal Grandfather Elaine Mathew Thyroid disease Maternal Grandfather Elaine Mathew Arthritis Maternal Grandmother Rodrigo Mathew Cancer Maternal Grandmother Rodrigo Mathew colon Colon cancer Maternal Grandmother Rodrigo Mathew Diabetes Maternal Grandmother Rodrigo Mathew Obesity Maternal Grandmother Rodrigo Mathew Thyroid disease Maternal Grandmother Rodrigo Mathew Hyperlipidemia Mother Dimple Son Vision loss Mother Dimple Son Cancer Paternal Grandmother Carolina Snider lymph ruth Cancer Paternal Uncle Ankit Snider Melanoma Cirrhosis Sister Arina Matos non alcoholic Gallbladder disease Sister Arina Matos Sleep apnea Sister Arina Matos Thyroid disease Sister Arina Matos Breast cancer Neg Hx Ovarian cancer Neg Hx Relation Name Status Comments Father Jonathan Snider Maternal Grandfather Elaine Mathew Maternal Grandmother Rodrigo Mathew Mother Dimple Son Paternal Grandmother Carolina Snider Paternal Uncle Ankit Snider Sister Arina Matos Social History Tobacco Use Types Packs/Day Years Used Date Smoking Tobacco: Never Passive Smoke Exposure: Past Smokeless Tobacco: Never Tobacco Cessation:Counseling Given: Yes Alcohol Use Standard Drinks/Week Comments Not Currently [...] Orientation Straight 07/28/2024 2: 20 PM EDT Last Filed Vital Signs Vital Sign Reading Time Taken Comments Blood Pressure 122/72 09/27/2024 10:09 AM EDT Pulse 70 09/27/2024 10:09 AM EDT Temperature 36.5 C (97.7 F) 09/27/2024 10:09 AM EDT Respiratory Rate 16 02/12/2023 3:31 PM EST Oxygen Saturation 98% 09/27/2024 10:09 AM EDT Inhaled Oxygen Concentration - - Weight 84 kg (185 lb 3.2 oz) 09/27/2024 10:09 AM EDT Height 154.9 cm (5' 1 ) 09/27/2024 10:09 AM EDT Body Mass Index 34.99 09/27/2024 10:09 AM EDT Plan of Treatment Upcoming Encounters Date Type Department Care Team (Late st Contact Info) Description 12/26/2024 10:15 AM EST Office Visit [facility] [address] [place] [address] Vianey Ann MD [address] [facility] [address] [place], [place] [id number] 03/16/2025 8:15 AM EST Office Visit [facility] [address] [place] [address] Vianey Ann MD [address] [facility] [address] [place], [place] [id number] 06/28/2025 11:30 AM EDT Office Visit [facility] [address] [place] [address] Cindy Scherer APRN [address] [place] [address] [place] [address] Health Maintenance Due Date Last Done Comments COLOGUARD 2017 COLON CANCER SCREENING 5 YEA R SIGMOIDOSCOPY 2017 CT COLONOGRAPHY 2017 FECAL OCCULT BLOOD TEST 2017 FIT Testing (1 year) 2017 INFLUENZA VACCINE 09/08/2024 03/24/2024, , 11/13/2019, Additional history exists ANNUAL PHYSICAL 03/15/2025 03/15/2024, 12/06/2018 LIPID PANEL 03/15/2025 03/15/2024, 0 06/2023, 04/13/2022, Additional history exists MAMMOGRAM 08/17/2026 08/17/2024, 0 04/2024, 07/07/2023, Additional history exists COLONOSCOPY 11/27/2031 11/26/2021, 08/01/2018 COLORECTAL CANCER SCREENING 11/27/2031 TDAP/TD VACCINES (6 - Td or Tdap) 06/05/2034 06/05/2024, 02/12/2023, 09/05/2014, Additional history exists HEPATITIS C SCREENING Completed 03/01/2020 Annual Gynecologic Pelvic an d Breast Exam Discontinued 04/26/2023, 07/02/2015 Pneumococcal Vaccine 50+ Completed 06/05/2024 ZOSTER VACCINE Completed 06/07/2024, 03/24/2024 Procedures Procedure Name Priority Date/Time Associated Diagnosis Comments MAMMO SCREENING DIGITAL TOMOSYNTHESIS BILATERAL W CAD Routine 08/10/2024 11:50 AM EDT Encounter for screening mammogram for breast cancer LIPID PANEL Routine 03/15/2024 12:13 PM EST Annual physical exam Hyperlipidemia, unspecified hyperlipidemia type Abnormal blood chemistry Medication monitoring encounter SCANNED - PAP SMEAR 04/26/2023 SCANNED - COLONOSCOPY 11/26/2021 HEPATITIS C ANTIBODY Routine 03/01/2020 3:36 PM EST Encounter for hepatitis C screening test for low risk patient from Last 3 Months or Most Recently Relevant to Health Maintenance Results * Mammo Screening Digital Tomosynthesis Bilateral With CAD (08/10/2024 11:50 AM EDT) Anatomical Region Laterality Modality Breast N/A Mammography 08/17/2024 9:21 AM EDT Impressions 08/17/2024 9:24 AM EDT Benign screening mammogram. RECOMMENDATION: Continue annual screening mammography. BI-RADS CATEGORY 2, BENIGN. CAD was utilized. The standard false-negative rate of mammography is between 10% and 25%. Complex patterns or increased breast density will markedly elevate the false-negative rate of mammography. A letter, in lay terminology, with the results of this exam will be mailed to the patient. 08/17/2024 9:[address] Tonja Huang MD on Narrative 08/17/2024 9:24 AM EDT BILATERAL SCREENING MAMMOGRAM WITH TOMOSYNTHESIS: HISTORY: The patient has no personal history or significant family history of breast cancer and no focal breast complaints at the time of screening mammography. TECHNIQUE: Bilateral CC and MLO low dose, full field digital mammographic images were obtained with tomosynthesis. COMPARISON: [facility] mammograms dated 07/07/2023, 05/06/2022, 04/27/2021, 10/17/2020, 05/02/2020, and 04/24/2019. FINDINGS: There are scattered areas of fibroglandular density. RIGHT BREAST The fibroglandular pattern is stable. There are no suspicious masses, worrisome calcifications, nonsurgical areas of architectural distortion, or other secondary signs of malignancy. LEFT BREAST The fibroglandular pattern is stable. There is a stable oval mass with an associated post biopsy marking clip in the mid aspect of the 3:00 region. There are no suspicious masses, worrisome calcifications, nonsurgical areas of architectural distortion, or other secondary signs of malignancy. us Vianey Ann MD IMG MAMMOGRAPHY ORDERABLE S Final Result * (ABNORMAL) Lipid panel (03/15/2024 12:13 PM EST) Total Cholesterol 207(H) 0 - 200 mg/dL [facility] Comment: Cholesterol Reference Ranges (U.S. Department of Health and Human Services ATP III Classifications) Desirable <200 mg/dL Borderline High 200-239 mg/dL High Risk >240 mg/dL Triglyceride Reference Ranges (U.S. Department of Health and Human Services ATP III Classifications) Normal <150 mg/dL Borderline High 150-199 mg/dL High 200-499 mg/dL Very High >500 mg/dL HDL Reference Ranges (U.S. Department of Health and Human Services ATP III Classifications) Low <40 mg/dl (major risk factor for CHD) High >60 mg/dl ('negative' risk factor for CHD) LDL Reference Ranges (U.S. Department of Health and Human Services ATP III Classifications) Optimal <100 mg/dL Near Optimal 100-129 mg/dL Borderline High 130-159 mg/dL High 160-189 mg/dL Very High >189 mg/dL LDL is calculated using the NIH LDL-C calculation. Triglycerides 74 0 - 150 mg/dL [facility] HDL Cholesterol 64(H) 40 - 60 mg/dL [facility] VLDL Cholesterol Van 13 5 - 40 mg/dL [facility] LDL Chol Calc (NIH) 130(H) 0 - 100 mg/dL [facility] Blood 03/15/2024 12:1 3 PM EST 03/15/2024 Narrative [facility] ([facility]) - 03/16/2024 3:07 AM EST Performed at: [address] [id number] Financial Examiner: Charly Holland MD, Phone: [phone] Patient Fasting: Y Vianey Ann MD LAB BLOOD ORDERABLES Danae l Result Performing Organization Address City/[facility]/ZIP Co de Phone Number [facility] ([facility]) [address] [place] [address], [facility] [address] [place] [address], * PAP SMEAR SCANNED (04/26/2023) Vianey Ann MD CHART REVIEW TABS Danae l Result * SCANNED - COLONOSCOPY (11/26/2021) Arnav Wellington MD CHART REVIEW TABS Final Result * Hepatitis C Antibody (03/01/2020 3:36 PM EST) Pathologist [facility] Hep C Virus Ab <0.1 0.0 - 0.9 s/co ratio [facility] Comment: Negative: < 0.8 Indeterminate: 0.8 - 0.9 Positive: > 0.9 The CDC recommends that a positive HCV antibody result be followed up with a HCV Nucleic Acid Amplification test (004523). Blood 03/01/2020 3:36 PM EST 03/01/2020 Narrative [facility] (AM[facility]) - 03/02/2020 5:08 AM EST Performed at: 02 [facility] [address] [place] [address], [place], [place] [id number] Financial Examiner: Oleksandr Martins PhD, Phone: [phone] Patient Fasting: N Melvi Wagoner APRN LAB BLOOD ORDERABLES F inal Result Performing Organization Address City/[facility]/ZIP Co de Phone Number [facility] ([facility]) [address] [place] [address], [place] [phone] [facility] [address] [place] [address], from Last 3 Months or Most Recently Relevant to Health Maintenance Insurance [employer] Care Teams It Account Manager Relationship Specialty Start Date End Date Vianey Ann MD [address] [place] [address] [address] [place] [address] PCP - General Family Medicine 10/19/14
--- OUTSIDE RECORDS SUMMARY | 2024-11-30 10:40 | XMS_ITS | Encounter Summary ---
Author Organization [employer] ([place], [place], [place], [place]) Address [address] [place] [address] Care Team Providers Care Back Tender Paper Machine Name Role Phone Vianey Ann MD Primary Care Provider [phone] Beulah Shay MD Unavailable [phone] Encounter Details Date Type Department Care Team (Late st Contact Info) Description 08/01/2018 Transcribed Document [facility] [place] [facility] [place] [address] ProviderFarhan MD [address] [place] [id number] Social History Tobacco Use Types Packs/Day Years Used Date Smoking Tobacco: Never Assessed Comments Unknown Sex and Gender Information Value Date Recorded Sex Assigned at Not on file Legal Sex Female 3:07 PM CDT Gender Identity Not on file Sexual Orientation Not on file documented as of this encounter Miscellaneous Notes * Cerner Conversion Note - Farhan Haddad MD - 08/01/2018 1:23 PM CDT Patient Education Materials Follows: Colonoscopy, Adult, Care After This sheet gives you information about how to care for yourself after your procedure. Your doctor may also give you more specific instructions. If you have problems or questions, call your doctor. What can I expect after the procedure? After the procedure, it is common to have: ??? A small amount of blood in your poop for 24 hours. ??? Some gas. ??? Mild cramping or bloating in your belly. Follow these instructions at home: General instructions ??? For the first 24 hours after the procedure: ? Do not drive or use machinery. ? Do not sign important documents. ? Do not drink alcohol. ? Do your daily activities more slowly than normal. ? Eat foods that are soft and easy to digest. ??? Take ryyi-aav-gjairwy or prescription medicines only as told by your doctor. To help cramping and bloating: ??? Try walking around. ??? Put heat on your belly (abdomen) as told by your doctor. Use a heat source that your doctor recommends, such as a moist heat pack or a heating pad. ? Put a towel between your skin and the heat source. ? Leave the heat on for 20?30 minutes. ? Remove the heat if your skin turns bright red. This is especially important if you cannot feel pain, heat, or cold. You can get burned. Eating and drinking ??? Drink enough fluid to keep your pee (urine) clear or pale yellow. ??? Return to your normal diet as told by your doctor. Avoid heavy or fried foods that are hard to digest. ??? Avoid drinking alcohol for as long as told by your doctor. Contact a doctor if: ??? You have blood in your poop (stool) 2?3 days after the procedure. Get help right away if: ??? You have more than a small amount of blood in your poop. ??? You see large clumps of tissue (blood clots) in your poop. ??? Your belly is swollen. ??? You feel sick to your stomach (nauseous). ??? You throw up (vomit). ??? You have a fever. ??? You have belly pain that gets worse, and medicine does not help your pain. Summary ??? After the procedure, it is common to have a small amount of blood in your poop. You may also have mild cramping and bloating in your belly. ??? For the first 24 hours after the procedure, do not drive or use machinery, do not sign important documents, and do not drink alcohol. ??? Get help right away if you have a lot of blood in your poop, feel sick to your stomach, have a fever, or have more belly pain. This information is not intended to replace advice given to you by your health care provider. Make sure you discuss any questions you have with your health care provider. Document Released: 02/27/2011 Document Revised: 11/25/2017 Document Reviewed: 10/19/2016 [employer] Interactive Patient Education ? 2019 [employer] Endocrinology High-Fiber Diet Fiber, also called dietary fiber, is a type of carbohydrate found in fruits, vegetables, whole grains, and beans. A high-fiber diet can have many health benefits. Your health care provider may recommend a high-fiber diet to help: ??? Prevent constipation. Fiber can make your bowel movements more regular. ??? Lower your cholesterol. ??? Relieve hemorrhoids, uncomplicated diverticulosis, or irritable bowel syndrome. ??? Prevent overeating as part of a weight-loss plan. ??? Prevent heart disease, type 2 diabetes, and certain cancers. What is my plan? The recommended daily intake of fiber includes: ??? 38 grams for men under age 50. ??? 30 grams for men over age 50. ??? 25 grams for women under age 50. ??? 21 grams for women over age 50. You can get the recommended daily intake of dietary fiber by eating a variety of fruits, vegetables, grains, and beans. Your health care provider may also recommend a fiber supplement if it is not possible to get enough fiber through your diet. What do I need to know about a high-fiber diet? Fiber supplements have not been widely studied for their effectiveness, so it is better to get fiber through food sources. ??? Always check the fiber content on the?nutrition facts label of any prepackaged food. Look for foods that contain at least 5 grams of fiber per serving. ??? Ask your dietitian if you have questions about specific foods that are related to your condition, especially if those foods are not listed in the following section. ??? Increase your daily fiber consumption gradually. Increasing your intake of dietary fiber too quickly may cause bloating, cramping, or gas. ??? Drink plenty of water. Water helps you to digest fiber. What foods can I eat? Grains Whole-grain breads. Multigrain cereal. Oats and oatmeal. Brown rice. Barley. Bulgur wheat. Millet. Bran muffins. Popcorn. [place] wafer crackers. Vegetables Sweet potatoes. Spinach. Kale. Artichokes. Cabbage. Broccoli. Green peas. Carrots. Squash. Fruits Berries. Pears. Apples. Oranges. Avocados. Prunes and raisins. Dried figs. Meats and Other Protein Sources Turney, kidney, ruth, and soy beans. Split peas. Lentils. Nuts and seeds. Dairy Fiber-fortified yogurt. Beverages Fiber-fortified soy milk. Fiber-fortified orange juice. Other Fiber bars. The items listed above may not be a complete list of recommended foods or beverages. Contact your dietitian for more options. What foods are not recommended? Grains White bread. Pasta made with refined flour. White rice. Vegetables Fried potatoes. Canned vegetables. Well-cooked vegetables. Fruits Fruit juice. Cooked, strained fruit. Meats and Other Protein Sources Fatty cuts of meat. Fried poultry or fried fish. Dairy Milk. Yogurt. Cream cheese. Sour cream. Beverages Soft drinks. Other Cakes and pastries. Butter and oils. The items listed above may not be a complete list of foods and beverages to avoid. Contact your dietitian for more information. What are some tips for including high-fiber foods in my diet? Eat a wide variety of high-fiber foods. ??? Make sure that half of all grains consumed each day are whole grains. ??? Replace breads and cereals made from refined flour or white flour with whole-grain breads and cereals. ??? Replace white rice with brown rice, bulgur wheat, or millet. ??? Start the day with a breakfast that is high in fiber, such as a cereal that contains at least 5 grams of fiber per serving. ??? Use beans in place of meat in soups, salads, or pasta. ??? Eat high-fiber snacks, such as berries, raw vegetables, nuts, or popcorn. This information is not intended to replace advice given to you by your health care provider. Make sure you discuss any questions you have with your health care provider. Document Released: 01/25/2006 Document Revised: 07/02/2016 Document Reviewed: 07/10/2014 [employer] Interactive Patient Education ? 2018 [employer] Gastroenterology Hemorrhoids Hemorrhoids are swollen veins in and around the rectum or anus. There are two types of hemorrhoids: ??? Internal hemorrhoids. These occur in the veins that are just inside the rectum. They may poke through to the outside and become irritated and painful. ??? External hemorrhoids. These occur in the veins that are outside of the anus and can be felt as a painful swelling or hard lump near the anus. Most hemorrhoids do not cause serious problems, and they can be managed with home treatments such as diet and lifestyle changes. If home treatments do not help your symptoms, procedures can be done to shrink or remove the hemorrhoids. What are the causes? This condition is caused by increased pressure in the anal area. This pressure may result from various things, including: ??? Constipation. ??? Straining to have a bowel movement. ??? Diarrhea. ??? . ??? Obesity. ??? Sitting for long periods of time. ??? Heavy lifting or other activity that causes you to strain. ??? Anal sex. What are the signs or symptoms? Symptoms of this condition include: ??? Pain. ??? Anal itching or irritation. ??? Rectal bleeding. ??? Leakage of stool (feces). ??? Anal swelling. ??? One or more lumps around the anus. How is this diagnosed? This condition can often be diagnosed through a visual exam. Other exams or tests may also be done, such as: ??? Examination of the rectal area with a gloved hand (digital rectal exam). ??? Examination of the anal canal using a small tube (anoscope). ??? A blood test, if you have lost a significant amount of blood. ??? A test to look inside the colon (sigmoidoscopy or colonoscopy). How is this treated? This condition can usually be treated at home. However, various procedures may be done if dietary changes, lifestyle changes, and other home treatments do not help your symptoms. These procedures can help make the hemorrhoids smaller or remove them completely. Some of these procedures involve surgery, and others do not. Common procedures include: ??? Rubber band ligation. Rubber bands are placed at the base of the hemorrhoids to cut off the blood supply to them. ??? Sclerotherapy. Medicine is injected into the hemorrhoids to shrink them. ??? Infrared coagulation. A type of light energy is used to get rid of the hemorrhoids. ??? Hemorrhoidectomy surgery. The hemorrhoids are surgically removed, and the veins that supply them are tied off. ??? Stapled hemorrhoidopexy surgery. A circular stapling device is used to remove the hemorrhoids and use zion to cut off the blood supply to them. Follow these instructions at home: Eating and drinking ??? Eat foods that have a lot of fiber in them, such as whole grains, beans, nuts, fruits, and vegetables. Ask your health care provider about taking products that have added fiber (fiber supplements). ??? Drink enough fluid to keep your urine clear or pale yellow. Managing pain and swelling ??? Take warm sitz baths for 20 minutes, 3?4 times a day to ease pain and discomfort. ??? If directed, apply ice to the affected area. Using ice packs between sitz baths may be helpful. ? Put ice in a plastic bag. ? Place a towel between your skin and the bag. ? Leave the ice on for 20 minutes, 2?3 times a day. General instructions ??? Take ikvu-hpv-dhzjndy and prescription medicines only as told by your health care provider. ??? Use medicated creams or suppositories as told. ??? Exercise regularly. ??? Go to the bathroom when you have the urge to have a bowel movement. Do not wait. ??? Avoid straining to have bowel movements. ??? Keep the anal area dry and clean. Use wet toilet paper or moist towelettes after a bowel movement. ??? Do not sit on the toilet for long periods of time. This increases blood pooling and pain. Contact a health care provider if: ??? You have increasing pain and swelling that are not controlled by treatment or medicine. ??? You have uncontrolled bleeding. ??? You have difficulty having a bowel movement, or you are unable to have a bowel movement. ??? You have pain or inflammation outside the area of the hemorrhoids. This information is not intended to replace advice given to you by your health care provider. Make sure you discuss any questions you have with your health care provider. Document Released: 01/22/2001 Document Revised: 06/24/2016 Document Reviewed: 10/09/2015 [employer] Interactive Patient Education ? 2019 [employer] documented in this encounter Plan of Treatment Not on file documented as of this encounter Visit Diagnoses Not on filedocumented in this encounter Care Teams Back Tender Paper Machine Relationship Specialty Start Date End Date Vainey Ann MD [address] [facility] [address] [place] [address] PCP - General Family Medicine 05/06/22 Beulah Shay MD [address] [facility] [address] [place] [address] Referring Physician Obstetrics/Gynecology 05/06/22 documented as of this encounter
--- OUTSIDE RECORDS SUMMARY | 2024-11-30 10:40 | XMS_ITS | Encounter Summary ---
Author Organization [employer] ([place], [place], [place], [place]) Address [address] [place] [address] Care Team Providers Care Sap Abap Developer Name Role Phone Vianey Ann MD Primary Care Provider [phone] Beulah Shay MD Unavailable [phone] Encounter Details Date Type Department Care Team (Late st Contact Info) Description 03/24/2019 Transcribed Document [facility] [place] [address] [place] [address] ProviderFarhan MD [address] [place] [address] Social History Tobacco Use Types Packs/Day Years Used Date Smoking Tobacco: Never Assessed Comments Unknown Sex and Gender Information Value Date Recorded Sex Assigned at Not on file Legal Sex Female 3:07 PM CDT Gender Identity Not on file Sexual Orientation Not on file documented as of this encounter Miscellaneous Notes * Cerner Conversion Note - Farhan ProviderMD - 03/24/2019 1:39 PM YARD SUPERVISOR Pre Procedure Adult Entered On: 03/24/2019 13:46 EST Performed On: 03/24/2019 13:39 EST by Yessenia Arambula RN Height and Weight, Clinical Dosing Height Source : Stated Height Entry Format : [place] Height, Feet : 5 ft(Converted to: 152 cm, 60 Inch) Height, Inches : 0 Inch(Converted to: 0 ft 0 Inch, 0.00 cm) Clinical Height : 152.4 cm Weight Source : Standing scale Weight Entry Format : [place] Clinical Dosing Weight : 76.36 kg Weight, Pounds : 168 lb Body Surface Area (BSA) : 1.73 m2 Body Mass Index : 32.9 kg/m2 (HI) [place] Body Weight : 45 kg Yessenia Arambula RN - 03/24/2019 13:39 EST Health Histories Smoking Status : Never (less than 100 in lifetime; none in last 30 days) Smokeless Tobacco Status : Never Yessenia Arambula RN - 03/24/2019 13:39 EST Social History (As Of: 03/24/2019 13:46:42 EST) Tobacco: Smoking Status Never smoker. Second Hand Smoke Exposure: Yes. (Last Updated: 07/16/2015 16:34:16 EDT by DANNY TRAYLOR RN) Alcohol: Alcohol Use History No. Use in Last 12 Months: No. (Last Updated: 03/24/2019 13:39:28 EST by Yessenia Arambula RN) Substance Abuse: Drug Use Hx: No. Use in Last 12 Months: No. (Last Updated: 03/24/2019 13:39:36 EST by Yessenia Arambula RN) Infectious Disease History Physical contact outside [place] in the last 30 days : No Infectious Disease History : Chicken pox/Shingles, Human papilloma virus (HPV) Isolation Needed : Standard Exposure to Contagious Illness : No Tuberculosis Symptoms : None Yessenia Arambula RN - 03/24/2019 13:39 EST Anesthesia/Transfusion History Family History of Anesthesia Reaction : No prior transfusion(s) Transfusion History : Prior anesthesia without reaction Family History of Anesthesia Reaction : None Yessenia Arambula RN - 03/24/2019 13:39 EST Functional Assessment Living Situation : Home Patient Lives With : Significant other(s) Persons Assisting Patient at Home : Alone Current Daily Living Assistance : None Sensory Deficits : None Mobility Assistance Prior to Admission : Independent VELA Hx Falls Immediate/Within 3 Months : No Current Home Treatments : None Home Equipment : None Professional Skilled Services : None Special Services and Community Resources : None Yessenia Arambula RN - 03/24/2019 13:39 EST [place] Suicide Severity Rating Scale (C-SSRS) CSSRS Past Month Wish to be : No CSSRS Past Month Suicidal Thoughts : No CSSRS Lifetime Suicide Behavior : No Suicide Severity Rating Score : 0 Suicide Severity Rating : No Additional Care Required at this time Yessenia Arambula RN - 03/24/2019 13:39 EST Psychosocial History Does Someone Depend on You for Care? : No Chronic/Terminal Illness w/Freq Visits : No Do You Have a History of the Following? : Anxiety Currently in Unsafe Situation : No Restraining Order Against Another Person : No Do You Have a Support System? : Yes Hospital/DC Financial Concerns : No Stressors Affecting Hospitalization/DC : No Yessenia Arambula RN - 03/24/2019 13:39 EST Advance Directive Patient has Advance Directive *Q : No, patient refuses Advance Directive information Yessenia Arambula RN - 03/24/2019 13:39 EST Spiritual/Cultural Needs Significant Loss/Crisis in Past 3 Years : No Significant Distress/Coping/Need Support : No Any Spiritual/Cultural Needs or Requests : No Yessenia Arambula RN - 03/24/2019 13:39 EST Teaching/Learning Assessment Barriers To Learning : None evident Individuals Taught : Patient Readiness to Learn : Cooperative Baseline Knowledge of Topic : Good Readiness to Learn : Explanation, Printed materials Learning Style Preferences Patient : Printed materials, Verbal explanation Learning Style Preferences Family : Printed materials, Verbal explanation Yessenia Arambula RN - 03/24/2019 13:39 EST Education Topics, Periop Preadmission Perioperative Education Grid Arrival Time/Place : Verbalizes understanding Falls : Verbalizes understanding Incentive Spirometry : Verbalizes understanding Infection Control : Verbalizes understanding IV's : Verbalizes understanding NPO Status/Directions : Verbalizes understanding Pain Management : Verbalizes understanding Postoperative Care Preparations : Verbalizes understanding Preprocedure Preparations : Verbalizes understanding Preprocedure Tests/Labs : Verbalizes understanding Responsible Adult : Verbalizes understanding Yessenia Arambula RN - 03/24/2019 13:39 EST General Info Arrived From : Home Mode of Arrival on Unit : Ambulatory Patient Arrival Date/Time : 03/24/2019 13:10 EST Legal Guardian : Significant other Legal Guardian : No Support Person/Patient Plumber'S Helper : Yes Support Person/Pt Rep Name : Dimple Huy Contact Password : [id number] Support Person/Pt Rep Contact Information : [phone] Want Family/Rep/Phys Notified of Admit : No Emergency Contact #1 : Oh Bowman Emergency Contact #1 Emergency Contact #1 Relationship : boyfriend Emergency Contact #2 : Arina Matos Emergency Contact #2 Emergency Contact #2 Relationship : sister Information Obtained From : Patient Primary Language : Norwegian Preferred Communication Mode : Verbal Communication Barrier : None Objects to Sharing Info w Family : No Currently Lactating : No Status : Hysterectomy Clinical Trials Participant *Q : None CTP, None *Q : Yes Yessenia Arambula RN - 03/24/2019 13:39 EST Vital Measurements Temperature Source : Oral Temperature Mode : Fahrenheit Temperature, Fahrenheit : 98.7 Deg F Clinical Temperature, C : 37.1 Deg C Pulse Method : Non-Invasive BP Device Pulse Source : Brachial, Left Peripheral Pulse Rate : 90 bpm Pulse Rhythm : Regular Respiratory Rate : 16 Breaths/Min Blood Pressure Location : Arm, left upper Blood Pressure Source : Non-Invasive BP Device Blood Pressure Position : Sitting Systolic Blood Pressure : 133 mmHg Diastolic Blood Pressure : 62 mmHg Oxygen Saturation : 96 % Oxygen Therapy Mode : Room air Yessenia Arambula RN - 03/24/2019 13:39 EST Sleep Apnea Risk Assmt Hx of Obstructive Sleep Apnea Diagnosis : No Snore Loudly : Yes Tired, Fatigued, or Sleepy During Day : Yes Observed Stopping Breathing During Sleep : No Have/Are Being Treated for Hypertension : No BMI Greater Than 35 kg/m2 : No Age over 50 Years Old : No Neck Circumference Greater Than 40 cm : No Gender Male : No STOP-BANG Sleep Apnea Risk Level Score : 2 Yessenia Arambula RN - 03/24/2019 13:39 EST Aravind Scale Aravind Sensory Perception : No impairment Aravind Moisture : Occasionally moist Aravind Activity : Walks frequently Aravind Mobility : No limitation Aravind Nutrition : Adequate Aravind Friction and Shear : No apparent problem Aravind Score : 21 Yessenia Arambula RN - 03/24/2019 13:39 EST Oxygen Therapy Oxygen Therapy Mode : Room air Oxygen Saturation (%) : 96 % Yessenia Arambula RN - 03/24/2019 13:39 EST Pain Assessment Pain Assessment : Initial assessment Pain Scale Goal : 4 Pain Scale Used : 0-10 Scale Yessenia Arambula RN - 03/24/2019 13:39 EST Fall Risk Scales ABCs Fall Injury Risk [...] Scale Risk Level : 0-24 Low Risk [place] Fall Interventions : Adequate lighting, Bed in low position, Call device within reach, Non-slip footwear, Personal items within reach, Reinforced to call for assistance before getting out of bed, Room free of clutter/spills, Upper side-rails up, Wheels locked, Wires/Cords secured Yessenia Arambula RN - 03/24/2019 13:39 EST Education Topics, Day of Surgery DayofSurgery Education Grid Anesthesia/Sedation : Verbalizes understanding Fall Risks : Verbalizes understanding Family Instructions : Verbalizes understanding Infection Control : Verbalizes understanding Infection Risks : Verbalizes understanding IV's : Verbalizes understanding Medication Instructions : Verbalizes understanding Pain Management : Verbalizes understanding Plan of Care : Verbalizes understanding Responsible Adult : Verbalizes understanding Yessenia Arambula RN - 03/24/2019 13:39 EST Valuables and Belongings Valuables and Belongings : Clothing, Personal devices, Personal items, Medications Clothing : Common streetwear, Outerwear Clothing Disposition : With family Personal Device Disposition : With family Personal Devices : Glasses Personal Items : Cell phone, Credit cards, Purse, Wallet, Other: I-Pad Personal Items Disposition : With family Medication Disposition : With family Medication Brought With Patient : Yes Yessenia Arambula RN - 03/24/2019 13:39 EST Pain Scale Intensity : 0 Yessenia Arambula RN - 03/24/2019 13:39 EST Image 4 - Images currently included in the form version of this document have not been included in the text rendition version of the form. [place] Coma Zamzam Best Motor Response : Obey commands Zamzam Best Verbal Response : Oriented [place] Eye Opening Response : Spontaneous Zamzam Coma Score : 15 Yessenia Arambula RN - 03/24/2019 13:39 EST Electronically signed by Ricarda [facility] Conversion Subassembly Assembler Cerner at 05/24/2022 5:32 PM CDT documented in this encounter Plan of Treatment Not on file documented as of this encounter Visit Diagnoses Not on filedocumented in this encounter Care Teams Sap Abap Developer Relationship Specialty Start Date End Date Vianey Ann MD [address] [place] [address] PCP - General Family Medicine 05/06/22 Beulah Shay MD [address] [facility] [address] [place] [address] Referring Physician Obstetrics/Gynecology 05/06/22 documented as of this encounter
--- OUTSIDE RECORDS SUMMARY | 2024-11-30 10:40 | XMS_ITS | Encounter Summary ---
Author Organization [employer] ([place], [place], [place], [place]) Address [address] [place] [address] Care Team Providers Care Wildlife Removal Specialist Name Role Phone Vianey Ann MD Primary Care Provider + [phone] Jewell Shay MD Unavailable [phone] Encounter Details Date Type Department Care Team (Late st Contact Info) Description 03/24/2019 Transcribed Document [facility] [place] Family [place] [facility] [address] ProviderFarhan MD [address] [place] [address] Social History Tobacco Use Types Packs/Day Years Used Date Smoking Tobacco: Never Assessed Comments Unknown Sex and Gender Information Value Date Recorded Sex Assigned at Not on file Legal Sex Female 3:07 PM CDT Gender Identity Not on file Sexual Orientation Not on file documented as of this encounter Miscellaneous Notes * Cerner Conversion Note - Farhan ProviderMD - 03/24/2019 3:30 PM CALCIMINER [facility] [address], [place] [address] Patient Copy Patient Information: Name: BEATRIS PERRY Current Date: 03/24/2019 15:30:46 : 1970 Patient Address: [address] [address] Patient Attending Physician: JEWELL SHAY MD-OBG Primary Care Provider: VIANEY ANN MD-[facility] Primary Care Provider Discharge Diagnosis: 1:Vaginal intraepithelial neoplasia III; 2:High risk HPV infection; 3:Vulvar low-grade squamous intraepithelial lesion (LGSIL); 4:Status post hysterectomy Weight on Admission: 168 lb, 0 oz Comment: Follow-up Instructions: With: Address: When: UMA GOLDSTEINON [address] [place] [id number] Business (1) Within 1 month Type Location Start Finish State MY Digital Screen [facility] 8:00 AM 8:15 AM Confirmed BD Spine Hip [facility] 10:30 AM 11:00 AM Confirmed < Discharge Instructions: Immunizations Documented During Stay: No Immunizations Found Heart Failure Discharge Instructions (if any): Stroke Related Discharge Instructions (if any): Warfarin Related Discharge Instructions (if any): Final Medication List: All Known Home Medications Were Discontinued During This Visit Patient Allergies: No Known Allergies Medication Instructions: Take your medications faithfully. Do NOT skip medication. Do NOT stop taking medications without the direction of a physician. Carry a list of your medications with you at all times, and take this medication list with you to your first follow up visit. Report any side effects. Avoid herbal remedies unless discussed with your physician. As part of your treatment plan, your physician may have prescribed a limited course of a controlled substance. This medication may be given to help people with moderate or severe pain or for other medical conditions, but there are risks involved with treatment. Common side effects may include nausea, constipation, drowsiness, sweating, itching, dry mouth, and rash. More serious side effects may include cognitive and motor impairment, like problems with thinking, concentrating, alertness, and movement (e.g. slowed reflexes), and driving and operating heavy machinery can be dangerous. It is important for you to talk to your physician if you have these side effects or questions. These controlled substances can produce physical dependence and be habit-forming if taken for an extended period of time, which means that the body has gotten used to them and may experience withdrawal symptoms if they are abruptly stopped. Withdrawal symptoms can include runny nose, sweating, goose bumps, diarrhea, abdominal cramping, rapid heartbeat, difficulty sleeping, and nervousness. CIGARETTE SMOKING: The facts are clear, cigarette smoking will shorten your life. Smoking can cause many illnesses along the way. As a healthcare provider, we recommend that you stop smoking. Assistance with quitting is available by contacting 8-643-JIQY-NOW. This is a free resource providing counseling, support, and referral. Or you may contact your personal physician. 4 WAYS TO GET AHEAD OF SEPSIS SEPSIS is a MEDICAL EMERGENCY. Time matters! Infections put you and your family at risk for a life-threatening condition called sepsis. Sepsis is the body???s extreme response to an infection. It is life-threatening, and without timely treatment, sepsis can rapidly lead to tissue damage, organ failure, and . Sepsis happens when an infection you already have???in your skin, lungs, urinary tract or somewhere else???triggers a chain reaction throughout your body. 1 PREVENT INFECTIONS Take good care of chronic conditions. Talk to your doctor about getting the recommended vaccines. 2 PRACTICE GOOD HYGIENE Wash your hands frequently. Keep cuts or open sores clean and covered until they are healed. 3 KNOW THE SYMPTOMS Confusion or disorientation Shortness of breath High heart rate Fever, shivering, or feeling very cold Extreme pain or discomfort Clammy or sweaty skin 4 ACT FAST Get medical care IMMEDIATELY if you suspect sepsis or if you have an infection that???s not getting better or is getting worse. To learn more about sepsis and how to prevent infections, visit www.cdc.gov/sepsis. STROKE is an EMERGENCY [employer] ACT F.A.S.T! FACE ?? Facial droop ?? Uneven smile ARM ?? Arm numbness ?? Arm weakness SPEECH ?? Slurred speech ?? Difficulty speaking or understanding TIME ?? Call 911 and get to the hospital immediately Have the ambulance go to the nearest stroke center. STROKE Risk Factors High blood pressure High cholesterol Heart Disease Diabetes Smoking Heavy alcohol use Physical inactivity and obesity Atrial Fibrillation (irregular heartbeat) Family history of stroke Reminder: Be sure to sign up for the [employer] patient portal, which gives you 31/08 access to your medical information ??? including these discharge instructions ??? using your computer, smartphone, or tablet. Just go to [employer] to get started. Questions? Call . [facility] would like to thank you for allowing us to assist you with your healthcare needs. ÓSCAR Miguel STEPHANIE SHAE, (or territory representative) have received the above patient education materials/instructions and have verbalized understanding: Patient Signature _ Date/Time Patient Leather Novelty Parts Cutter Signature (if needed) Date/Time Clinician/Hospital Leather Novelty Parts Cutter Signature (if needed) Date/Time Electronically signed by Interface, [facility] Conversion Black Leather Trimmer Cerner at 05/24/2022 5:44 PM CDT documented in this encounter Plan of Treatment Not on file documented as of this encounter Visit Diagnoses Not on filedocumented in this encounter Care Teams Wildlife Removal Specialist Relationship Specialty Start Date End Date Vianey Ann MD [address] [facility] [address] [place] [address] PCP - General Family Medicine 05/06/22 Jewell Shay MD [address] [place] [address] Referring Physician Obstetrics/Gynecology 05/06/22 documented as of this encounter
--- OUTSIDE RECORDS SUMMARY | 2024-11-30 10:40 | XMS_ITS | Encounter Summary ---
Author Organization [employer] ([place], [place], [place], [place]) Address [address] [place] [address] Care Team Providers Care Sewing Trimmer Name Role Phone Swapna Ann MD Primary Care Provider + [phone] Beulah Shay MD Unavailable [phone] Encounter Details Date Type Department Care Team (Late st Contact Info) Description 03/24/2019 Transcribed Document [facility] [place] [address] ProviderFarhan MD [address] [place] [address] Social History Tobacco Use Types Packs/Day Years Used Date Smoking Tobacco: Never Assessed Comments Unknown Sex and Gender Information Value Date Recorded Sex Assigned at Not on file Legal Sex Female 3:07 PM CDT Gender Identity Not on file Sexual Orientation Not on file documented as of this encounter Miscellaneous Notes * Cerner Conversion Note - Farhan ProviderMD - 03/24/2019 4:50 PM CATEGORY SPECIALIST [place] [address], [place] [address] Patient Copy Patient Information: Name: BEATRIS PERRY Current Date: 03/24/2019 16:50:57 : 1970 Patient Address: [address] [address] Patient Attending Physician: BEULAH SHAY MD-OBG Primary Care Provider: SWAPNA ANN MD-[facility] Primary Care Provider Discharge Diagnosis: 1:Vaginal intraepithelial neoplasia III; 2:High risk HPV infection; 3:Vulvar low-grade squamous intraepithelial lesion (LGSIL); 4:Status post hysterectomy Weight on Admission: 168 lb, 0 oz Comment: Follow-up Instructions: With: Address: When: BEULAH GOLDSTEINON [address] [employer] [place] [id number] [place] (1) Comments: Call on Wednesday to schedule follow up appointment Type Location Start Finish State MY Digital Screen [facility] 8:00 AM 8:15 AM Confirmed BD Spine Hip [facility] 10:30 AM 11:00 AM Confirmed [...] cramping, rapid heartbeat, difficulty sleeping, and nervousness. Patient education materials: General Anesthesia, Adult, Care After This sheet gives you information about how to care for yourself after your procedure. Your health care provider may also give you more specific instructions. If you have problems or questions, contact your health care provider. What can I expect after the procedure? After the procedure, the following side effects are common: ??? Pain or discomfort at the IV site. ??? Nausea. ??? Vomiting. ??? Sore throat. ??? Trouble concentrating. ??? Feeling cold or chills. ??? Weak or tired. ??? Sleepiness and fatigue. ??? Soreness and body aches. These side effects can affect parts of the body that were not involved in surgery. Follow these instructions at home: For at least 24 hours after the procedure: ??? Have a responsible adult stay with you. It is important to have someone help care for you until you are awake and alert. ??? Rest as needed. ??? Do not: ? Participate in activities in which you could fall or become injured. ? Drive. ? Use heavy machinery. ? Drink alcohol. ? Take sleeping pills or medicines that cause drowsiness. ? Make important decisions or sign legal documents. ? Take care of children on your own. Eating and drinking ??? Follow any instructions from your health care provider about eating or drinking restrictions. ??? When you feel hungry, start by eating small amounts of foods that are soft and easy to digest (bland), such as toast. Gradually return to your regular diet. ??? Drink enough fluid to keep your urine pale yellow. ??? If you vomit, rehydrate by drinking water, juice, or clear broth. General instructions ??? If you have sleep apnea, surgery and certain medicines can increase your risk for breathing problems. Follow instructions from your health care provider about wearing your sleep device: ? Anytime you are sleeping, including during daytime naps. ? While taking prescription pain medicines, sleeping medicines, or medicines that make you drowsy. ??? Return to your normal activities as told by your health care provider. Ask your health care provider what activities are safe for you. ??? Take nlcg-gla-jtwhlrj and prescription medicines only as told by your health care provider. ??? If you smoke, do not smoke without supervision. ??? Keep all follow-up visits as told by your health care provider. This is important. Contact a health care provider if: ??? You have nausea or vomiting that does not get better with medicine. ??? You cannot eat or drink without vomiting. ??? You have pain that does not get better with medicine. ??? You are unable to pass urine. ??? You develop a skin rash. ??? You have a fever. ??? You have redness around your IV site that gets worse. Get help right away if: ??? You have difficulty breathing. ??? You have chest pain. ??? You have blood in your urine or stool, or you vomit blood. Summary ??? After the procedure, it is common to have a sore throat or nausea. It is also common to feel tired. ??? Have a responsible adult stay with you for the first 24 hours after general anesthesia. It is important to have someone help care for you until you are awake and alert. ??? When you feel hungry, start by eating small amounts of foods that are soft and easy to digest (bland), such as toast. Gradually return to your regular diet. ??? Drink enough fluid to keep your urine pale yellow. ??? Return to your normal activities as told by your health care provider. Ask your health care provider what activities are safe for you. This information is not intended to replace advice given to you by your health care provider. Make sure you discuss any questions you have with your health care provider. Document Released: 05/03/2001 Document Revised: 09/10/2017 Document Reviewed: 09/10/2017 [employer] Interactive Patient Education ? 2019 [employer] Medication Leaflets: silver sulfadiazine topical (AURELIANO anders SUL fa DYE a daja POLLARD ik al) Silvadene, SSD, Thermazene What is the most important information I should know about silver sulfadiazine topical? Silver sulfadiazine topical may cause serious medical problems in a if you use this medicine during late (close to your delivery date). This medicine should also not be used on premature babies or any child younger than 2 months old. What is silver sulfadiazine topical? Silver sulfadiazine is an antibiotic. It fights bacteria and yeast on the skin. Silver sulfadiazine topical (for the skin) is used to treat or prevent serious infection on areas of skin with second- or third-degree michaud. Silver sulfadiazine topical may also be used for purposes not listed in this medication guide. What should I discuss with my healthcare provider before using silver sulfadiazine topical? You should not use this medicine if you are allergic to silver sulfadiazine. Silver sulfadiazine topical may cause serious medical problems in a if you use this medicine during late (close to your delivery date). This medicine should also not be used on premature babies or any child younger than 2 months old. To make sure silver sulfadiazine topical is safe for you, tell your doctor if you have: ? liver disease; ?? kidney disease; ?? a genetic enzyme deficiency called wecemdp-3-ppyqocepi dehydrogenase (G6PD) deficiency; or ?? an allergy to sulfa drugs. FDA category B. Silver sulfadiazine topical is not expected to harm an unborn baby. However, this medicine can cause serious medical problems in a and should not be used during late . It is not known whether silver sulfadiazine topical passes into breast milk or if it could harm a nursing baby. You should not breast-feed while using this medicine. How should I use silver sulfadiazine topical? Follow all directions on your prescription label. Do not use this medicine in larger or smaller amounts or for longer than recommended. Wash your hands before and after applying silver sulfadiazine cream. The person applying silver sulfadiazine to burn wounds should wear sterile disposable gloves. Take care to keep the treatment area as clean as possible to prevent further infection. Clean the area to be treated as directed by your doctor. Apply enough silver sulfadiazine to cover the affected area evenly. This medicine should be applied in a layer about one 16th (1/16) of an inch thick, or 1.6 millimeters. If needed, apply more cream to replace any medicine that has come off on bandages, clothing, or bed linens. Reapply the cream after bathing or water therapy. Silver sulfadiazine cream is usually applied 1 or 2 times daily. Burn wounds must be kept covered with this medicine at all times. Treated skin areas can be left uncovered, or you may use a gauze bandage if directed by your doctor. While using silver sulfadiazine topical, you may need frequent blood tests. Your kidney function may also need to be tested. Use this medicine for the full prescribed length of time. Your symptoms may improve before the infection is completely cleared. Skipping doses may also increase your risk of further infection that is resistant to antibiotics. Store at room temperature away from moisture and heat. What happens if I miss a dose? Apply the missed dose as soon as you remember. Your burn wounds should be kept covered with silver sulfadiazine cream at all times. What happens if I overdose? An overdose of silver sulfadiazine topical is not expected to be dangerous. Seek emergency medical attention or call the Poison Help line at if anyone has accidentally swallowed the medication. What should I avoid while using silver sulfadiazine topical? Do not take by mouth. Silver sulfadiazine topical is for use only on the skin. If this medicine gets in your eyes, nose, or mouth, rinse with water. What are the possible side effects of silver sulfadiazine topical? Get emergency medical help if you have any of these signs of an allergic reaction: hives; difficult breathing; swelling of your face, lips, tongue, or throat. Although the risk of serious side effects is low when silver sulfadiazine is applied to the skin, side effects can occur if the medicine is absorbed into your bloodstream. Call your doctor at once if you have: ? sudden weakness or ill feeling, fever, chills, sore throat, mouth sores, red or swollen gums, trouble swallowing; ?? easy bruising, unusual bleeding (nose, mouth, vagina, or rectum), purple or red pinpoint spots under your skin; ?? pale or yellowed skin, dark colored urine, fever, confusion or weakness; ?? kidney problems--red or pink urine, little or no urinating, swelling, rapid weight gain; ?? liver problems--nausea, upper stomach pain, itching, tired feeling, loss of appetite, dark urine, philipp-colored stools, jaundice (yellowing of the skin or eyes); or ?? severe skin reaction--fever, sore throat, swelling in your face or tongue, burning in your eyes, skin pain, followed by a red or purple skin rash that spreads (especially in the face or upper body) and causes blistering and peeling. This is not a complete list of side effects and others may occur. Call your doctor for medical advice about side effects. You may report side effects to FDA at 5-605-EIJ-9151. What other drugs will affect silver sulfadiazine topical? Other drugs may interact with silver sulfadiazine topical, including prescription and fcyj-yvd-pmmgbee medicines, vitamins, and herbal products. Tell each of your health care providers about all medicines you use now and any medicine you start or stop using. Where can I get more information? Your doctor or pharmacist can provide more information about silver sulfadiazine topical. Remember, keep this and all other medicines out of the reach of children, never share your medicines with others, and use this medication only for the indication prescribed. Every effort has been made to ensure that the information provided by [employer]. ('[employer]') is accurate, up-to-date, and complete, but no guarantee is made to that effect. Drug information contained herein may be time sensitive. [employer] information has been compiled for use by healthcare practitioners and consumers in the [place] and therefore [employer] does not warrant that uses outside of the [place] are appropriate, unless specifically indicated otherwise. [employer]'s drug information does not endorse drugs, diagnose patients or recommend therapy. [employer] drug information is an informational resource designed to assist licensed healthcare practitioners in caring for their patients and/or to serve consumers viewing this service as a supplement to, and not a substitute for, the expertise, skill, knowledge and judgment of healthcare practitioners. The absence of a warning for a given drug or drug combination in no way should be construed to indicate that the drug or drug combination is safe, effective or appropriate for any given patient. [employer] does not assume any responsibility for any aspect of healthcare administered with the aid of information [employer] provides. The information contained herein is not intended to cover all possible uses, directions, precautions, warnings, drug interactions, allergic reactions, or adverse effects. If you have questions about the drugs you are taking, check with your doctor, nurse or pharmacist. Copyright 6115-8410 [employer]. Version: 3.01. Revision Date: 07/12/2013. CIGARETTE SMOKING: The facts are clear, cigarette smoking will shorten your life. Smoking can cause many illnesses along the way. As a healthcare provider, we recommend that you stop smoking. Assistance with quitting is available by contacting 5-275-KMYQ-NOW. This is a free resource providing counseling, [...] Be sure to sign up for the [email or web address] patient portal, which gives you 31/08 access to your medical information ??? including these discharge instructions ??? using your computer, smartphone, or tablet. Just go to [employer]) to get started. Questions? Call . [facility] would like to thank you for allowing us to assist you with your healthcare needs. ÓSCAR Miguel STEPHANIE SHAE, (or bilingual inside sales representative) have received the above patient education materials/instructions and have verbalized understanding: Patient Signature _ Date/Time Patient Stringed Instrument Repairer Signature (if needed) Date/Time Clinician/Hospital Stringed Instrument Repairer Signature (if needed) Date/Time Electronically signed by [facility], [facility] Conversion Acid Remover Cerner at 05/24/2022 5:54 PM CDT documented in this encounter Plan of Treatment Not on file documented as of this encounter Visit Diagnoses Not on filedocumented in this encounter Care Teams Sewing Trimmer Relationship Specialty Start Date End Date Swapna Ann MD 107 [facility] [address] [place] [address] PCP - General Family Medicine 05/06/22 Beulah Shay MD [address] [place] [address] Referring Physician Obstetrics/Gynecology 05/06/22 documented as of this encounter
--- OUTSIDE RECORDS SUMMARY | 2024-11-30 10:40 | XMS_ITS | Referral Summary ---
Author Organization [employer] ([place], [place], [place], [place]) Address [address] [place] [address] Care Team Providers Care Ict Business Development Manager Name Role Phone Vianey Ann MD Primary Care Provider + [phone] Beulah Shay MD Unavailable [phone] Social History Tobacco Use Types Packs/Day [...] Date Scott rded Speak language other than Khmer at home Not on file 02/26/2023 Want [...] Orientation Not on file Plan of Treatment Not on file Procedures Procedure Name Priority Date/Time Associated Diagnosis [...] the next mammogram. At our facility, a [place] marker is positioned over a visible skin [...] 2:01 PM EST 03/24/2019 7:11 PM EST [facility] Historical Provider PATHOLOGY/CYTOLOGY ORDE BRADLEY Final Result [facility] [address] [phone] from Last 3 Months or Most Recently Relevant to Health Maintenance Insurance [facility] Care Teams Ict Business Development Manager Relationship Specialty Start Date End Date Vianey Ann MD 107 [facility] 200 [place] [address] PCP - General Family Medicine 05/06/22 Beulah Shay MD 160 [facility] [address] [place] [address] Referring Physician Obstetrics/Gynecology 05/06/22
--- OUTSIDE RECORDS SUMMARY | 2024-11-30 10:40 | XMS_ITS | Encounter Summary ---
Author Organization [employer] ([place], [place], [place], [place]) Address [address] [place] [address] Care Team Providers Care Ferryboat Deckhand Name Role Phone Vianey Ann MD Primary Care Provider + [phone] Beulah Shay MD Unavailable [phone] Encounter Details Date Type Department Care Team (Late st Contact Info) Description 03/24/2019 Transcribed Document [facility] [place] Family Medicine [facility] [place] [address] ProviderFarhan MD [address] [place] [address] Social History Tobacco Use Types Packs/Day Years Used Date Smoking Tobacco: Never Assessed Comments Unknown Sex and Gender Information Value Date Recorded Sex Assigned at Not on file Legal Sex Female 3:07 PM CDT Gender Identity Not on file Sexual Orientation Not on file documented as of this encounter Miscellaneous Notes * Cerner Conversion Note - Farhan ProviderMD - 03/24/2019 2:45 PM CHANGE MANAGEMENT CONSULTANT DEREJEE Main OR IntraOp Summary Primary Physician: BEULAH SHAY MD-OBG Finalized Date/Time: 03/25/19 05:23:56 Pt. Name: BEATRIS PERRYNai Mcelroy/Sex: 1970 Female Med Rec #: [id number] Physician: BEULAH SHAY MD-OBG Financial #: [id number] Pt. Type: O Room/Bed: EAS/2 Admit/Disch: 03/24/19 13:02:00 - [place] [facility] [place] Case Attendance Entry 1 Entry 2 Entry 3 Case Attendee BEULAH SHAY Davis, Aleitha E, JAM WALTER, CEMENT TILE MAKER MD-OBG Role Performed Surgeon/Proceduralist, Manufacturing Millwright, First CEMENT TILE MAKER/Nurse Truck Mechanic Apprentice First Time In 03/24/19 14:36:00 03/24/19 14:36:00 03/24/19 14:36:00 Time Out 03/24/19 15:15:00 03/24/19 15:15:00 03/24/19 15:15:00 Procedure Vulva Labia Laser Vulva Labia Laser Vulva Labia Laser Vaporization Vaporization Vaporization Other Attendee Superficial Wound Closed By: Last Modified By: Deng Hill, Deng Jarquin, Deng Jarquin, RN 03/24/19 15:15:07 03/24/19 15:15:07 03/24/19 15:15:07 Entry 4 Entry 5 Case Attendee DIAMOND CORBETT ST PHILLIPS, TIFFANY D., Motion Graphics Artist Role Performed Scrub, First Scrub, Second Time In 03/24/19 14:36:00 03/24/19 14:36:00 Time Out 03/24/19 15:15:00 03/24/19 15:15:00 Procedure Vulva Labia Laser Vulva Labia Laser Vaporization Vaporization Other Attendee Superficial Wound Closed By: Last Modified By: Deng Hill, Deng Jarquin RN 03/24/19 15:15:07 03/24/19 15:15:07 [facility] [place] Case Attendance Audit 03/24/19 15:15:07 Hotel Custodian: ALEITHADAVIS Modifier: ALEITHADAVIS 1 <+> Time Out 1 <*> Procedure Vulva Labia Laser Vaporization 2 <+> Time Out 2 <*> Procedure Vulva Labia Laser Vaporization 3 <+> Time Out 3 <*> Procedure Vulva Labia Laser Vaporization 4 <+> Time Out 4 <*> Procedure Vulva Labia Laser Vaporization 5 <+> Time Out 5 <*> Procedure Vulva Labia Laser Vaporization 03/24/19 14:55:23 Hotel Custodian: ALEITHADAVIS Modifier: ALEITHADAVIS <+> 1 Procedure 2 <*> Procedure Vulva Labia Laser Vaporization 3 <*> Procedure Vulva Labia Laser Vaporization 4 <*> Procedure Vulva Labia Laser Vaporization 5 <*> Procedure Vulva Labia Laser Vaporization 03/24/19 14:46:56 Hotel Custodian: ALEITHADAVIS Modifier: ALEITHADAVIS <+> 1 Time In 2 <+> Time In 2 <*> Procedure Vulva Labia Laser Vaporization 3 <+> Time In 3 <*> Procedure Vulva Labia Laser Vaporization 4 <*> Case Attendee Chikis Gan Motion Graphics Artist 4 <+> Time In 4 <*> Procedure Vulva Labia Laser Vaporization 5 <+> Time In 5 <*> Procedure Vulva Labia Laser Vaporization [facility] IntraOp Case Times Entry 1 Patient In Room Time 03/24/19 14:36:00 Out Room Time 03/24/19 15:15:00 Anesthesia Start Time 03/24/19 14:36:00 Stop Time 03/24/19 15:15:00 Anesthesia Ready 03/24/19 14:36:00 Surgery / Procedure Times Start Time 03/24/19 14:45:00 Stop Time 03/24/19 15:05:00 Last Modified By: Deng Hill RN 03/24/19 15:15:06 [facility] IntraOp Case Times Audit 03/24/19 15:15:06 Hotel Custodian: ALEITHADAVIS Modifier: ALEITHADAVIS <+> 1 Out Room Time <+> 1 Stop Time 03/24/19 15:05:42 Hotel Custodian: ALEITHADAVIS Modifier: ALEITHADAVIS <+> 1 Stop Time 03/24/19 14:56:06 Hotel Custodian: ALEITHADAVIS Modifier: ALEITHADAVIS <+> 1 Start Time [facility] IntraOp Communication Entry 1 Communication To Family/Significant other Comment communication board Communication By Deng Hill RN Date and Time 03/24/19 14:47:00 Last Modified By: Deng Hill RN 03/24/19 14:47:09 [facility] IntraOp Counts Verification Entry 1 Procedure Vulva Labia Laser Vaporization Count Info Count Type Sponge Counts Verification Baseline/pre-procedure Sequence Count Results Correct, surgeon notified Counts Performed By Count Performed By DIAMOND CORBETT ST (Scrub) Count Performed By Deng Hill RN (RN) Last Modified By: Deng Hill RN 03/24/19 14:47:44 [facility] IntraOp Counts Final Entry 1 Procedure Vulva Labia Laser Vaporization Final Count Info Count Type Sponge Counts Verification Skin Closure/end of Sequence procedure Count Results Correct, surgeon notified Counts Performed By Count Performed By DIAMOND CORBETT ST (Scrub) Count Performed By Deng Hill RN (RN) Last Modified By: Deng Hill RN 03/24/19 15:00:57 [facility] IntraOp Counts Final Audit 03/24/19 15:00:57 Hotel Custodian: ALEITHADAVIS Modifier: ALEITHADAVIS 1 <*> Procedure Vulva Labia Laser Vaporization 1 <+> Count Performed By (Scrub) [facility] IntraOp Departure from OR Entry 1 Integumentary Assessment Integumentary WDL Assessment WDL Transfer/Handoff Transfer to PACU Phase I Handoff Method Bedside/Face to face Post-op Transport Stretcher/Gurney Via Patient Transport Deng Hill RN, Accompanied by JAM GUZMAN CRNA Last Modified By: Deng Hill RN 03/24/19 14:57:02 [facility] IntraOp Fire Risk Assessment Entry 1 Fire Info Surgical Site or 0- No Incision Above the Xyphoid Open O2 Source 0- No (Mask or Cannula) Available Ignition 1- Yes (ESU, Laser, Light Source) Fire Risk 1 Assessment Score Fire Score Fire Risk Yes Assessment Complete Fire Risk Deng Hill RN Assessment Verified By Fire Risk 03/24/19 14:00:00 Assessment Verified Date/Time Fire Risk High Risk Protocol Yes Implemented Standard Fire Yes Safety Precautions Followed Last Modified By: Deng Hill RN 03/24/19 14:51:09 [facility] IntraOp General Case Clothes Separator 1 Case Information OR OR 07 [facility] Case Level 1 Room Verified Yes Wound Class II - Clean-Contaminated Specialty SN Gynecology Anesthesia Type General ASA Class 2 Diagnosis Preop Diagnosis VAGINAL INTRAEPITHELIAL NEOPLASIA, HPV IN FEMALE, VULVAR LESION Postop Same As Preop Yes Postop Diagnosis VAGINAL INTRAEPITHELIAL NEOPLASIA, HPV IN FEMALE, VULVAR LESION Last Modified By: Deng Hill RN 03/24/19 14:53:16 [facility] IntraOp Intraoperative Assessment Entry 1 Valid History / Yes Physical in Chart Preoperative Yes Checklist Reviewed/Evaluated Allergies Reviewed Yes Patient is Latex No Sensitive Level of WDL Consciousness (WDL = Alert, Oriented to Person, Place, and Time) Skin Assessment Yes Verified Present Upon IVs Arrival to OR Last Modified By: Deng Hill RN 03/24/19 14:53:21 [facility] IntraOp Intraoperative Equipment Entry 1 Type Equipment Equipment Equipment Smoke evacuator Intraop Monitoring Antiembolic Devices Antiembolic Devices Sequential compression device, knee high Antiembolic Device Bilateral Location Scopes Photo/Video Documentation Last Modified By: Deng Hill RN 03/24/19 14:53:30 [facility] IntraOp Laser Data/Safety Entry 1 Procedure Vulva Labia Laser Vaporization Laser Data Laser Mode Single Pulse Laser Mode Set By NINA HYATT, Motion Graphics Artist Laser Fiber Used Yes Laser Safety Procedure personnel Measures Included received laser safety information, [place] of water/Saline immediately available, Fire extinguisher location noted, Laser Caution placards placed on all doors, Laser safe instrumentation utilized, Specific laser safety precautions implemented, Rinse prep thoroughly from surgical site, Smoke evacuator tested/used, Suction evacuator with laser filter, Wet towels and sponges used to protect patient and drapes, Windows covered, Laser tested/calibrated, Appropriate eye protection for patient, Appropriate eye protection for staff, Appropriate eye protection for surgeon, Laser safe ET tube as applicable, High-filtration mask available, No flammable liquid around surgical area, Secure laser operation ellington, Implement fire protection measures Last Modified By: Deng Hill RN 03/24/19 14:53:56 [facility] IntraOp Medication Admin Entry 1 Entry 2 Entry 3 Medication/Irrigant Acetic Acid irrigation Lugols solution 30ml Sterile Water 1000ml 3% 500ml - [id number] topical - [id number] irrigation - [id number] Combo Med List Time Administered Route of Administration Dose Dose Unit of Measure Volume Administered By BEULAH SHAY KARON, MAGDALENE B, KARON, MAGDALENE B, MD-OBG -OBG -OBG Procedure Irrigation Irrigant Volume In Irrigant Volume Out Last Modified By: Sergio, AleJEFF Staley Aleitha E, RN Davis, Aleitha E, RN 03/24/19 14:54:49 03/24/19 14:54:49 03/24/19 14:54:49 Entry 4 Medication/Irrigant Xylocaine 2% 5ml jelly - [id number] Combo Med List Time Administered Route of Administration Dose Dose Unit of Measure Volume Administered By BEULAH SHAY MD-OBMic Procedure Irrigation Irrigant Volume In Irrigant Volume Out Last Modified By: Deng Hill RN 03/24/19 14:54:49 [facility] IntraOp Patient Positioning Entry 1 Procedure Vulva Labia Laser Vaporization Body Position Lithotomy Left Arm Position Secured on padded arm board Right Arm Position Secured on padded arm board Left Leg Position Secured in stirrup Right Leg Position Secured in stirrup Feet Uncrossed Yes Pressure Points Yes Checked Positioning Devices Stirrups/Leg Mckeon, Sling, Pillows, Arm Board Positioned By Deng Hill RN, JAM GUZMAN CRNA, BEULAH SHAY MD-OBG Position Verified Positioning Yes Verified by Anesthesia Positioning Yes Verified by Surgeon Last Modified By: Deng Hill RN 03/24/19 14:55:01 [facility] IntraOp Sign In Entry 1 Patient, Site, Yes Procedure Identified Surgical Consent Yes Confirmed Relevant Surgical Yes Documents Available Surgical Site Yes Marked by person performing procedure Anesthesia Machine Yes Check Completed Medication Checks Yes Completed Allergies Yes Airway Difficult No Airway/Aspiration Risk Difficult Yes Airway/Aspiration Intervention Equipment Available Blood Loss Risk Yes Blood Loss Yes Intervention Equipment Prepared and Ready Blood Identifiers Not applicable Verified Per Policy Hypothermia Risk Yes Warming Measures Yes Taken Last Modified By: Deng Hill RN 03/24/19 14:55:06 [facility] Intra Op Sign Out Entry 1 RN Confirmation Surgical Yes Procedure(s) Identified Instrument, Sponge Yes and Sharps Counts Correct/Documented Equipment Problems Yes Documented Specimen Labeled N/A Correctly Urinary Catheter Yes Documented in IView [place] Patient Yes Recovery Concerns Reviewed with Anesthesia Provider, Surgeon and RN [place] Patient Yes Management Concerns Reviewed with Anesthesia Provider, Surgeon and RN Safety Checklist Yes Elements Complete? RN Sign Out Deng Hill RN Signature RN Sign Out 03/24/19 15:05:00 Signature Date/Time Plan of Care Outcome - Fire Risk OUTCOME STATEMENT: Goal met Patient is free from injury related to surgical fire Plan of Care Outcome - Pt Positioning OUTCOME STATEMENT: Goal met Absence of signs and symptoms of positioning injury. Plan of Care Outcome - Skin Prep OUTCOME STATEMENT: Goal met Intraoperative care is consistent with measures to prevent infection Plan of Care Outcome - Xray/Images OUTCOME STATEMENT: Goal met Absence of observable signs or symptoms of radiation injury Plan of Care Outcome - Counts OUTCOME STATEMENT: Goal met Absence of signs and symptoms of injury related to extraneous objects Last Modified By: Deng Hill RN 03/24/19 15:05:44 [facility] Intra Op Sign Out Audit 03/24/19 15:05:44 Hotel Custodian: FRANCISCA Modifier: DEEPTHIADAVIS <+> 1 RN Sign Out Signature Date/Time [facility] IntraOp Surgical Procedures Entry 1 Procedure Vulva Labia Laser Vaporization Additional LASER OF VAGINAL CUFF Procedure AND VULVAR LESIONS Description Primary Procedure Yes Primary Surgeon BEULAH SHAY MD-OBG Start 03/24/19 14:45:00 Stop 03/24/19 15:05:00 Anesthesia Type General Specialty SN Gynecology Wound Class II - Clean-Contaminated Last Modified By: Deng Hill RN 03/24/19 15:05:44 [facility] IntraOp Surgical Procedures Audit 03/24/19 15:05:44 Hotel Custodian: FRANCISCA Modifier: ALEITHADAVIS <+> 1 Start <+> 1 Stop [facility] IntraOp Time Out Entry 1 Procedure to be Vulva Labia Laser Performed Vaporization Time Out Time Out Pause Time 03/24/19 14:44:00 All activity Yes suspended (unless life threatening emergency) Team Verbally Correct patient Confirms Information identity, Correct side and site are marked, Consent form is present and accurate, Agreement on the procedure to be done, Correct patient position, Relevant images/results properly labeled/appropriately displayed, Confirm antibiotics have been administered, Confirm the skin prep has dried, Confirm prosthesis/implant/devic e is present, Performed in location of procedure after prepped/draped Antibiotic Yes Prophylaxis Administered Or In Progress Within the Last 60 Minutes Beta Miya N/A Administered Venous Yes Thromboembolism Prophylaxis Required Anticipated Critical Events Surgeon None expected Anesthesia Provider None expected Nursing Assures Sterility of instruments, Implant Availability Essential Imaging Yes Labeled and Displayed Last Modified By: Deng Hill RN 03/24/19 14:56:56 Case Comments <None> Finalized By: IRAM DEWITT RN Document Signatures Signed By: Deng Hill RN 03/24/19 15:15 IRAM DEWITT RN 03/25/19 05:23 Unfinalized History Date/Time Username Reason for Unfinalizing Freetext Reason for Unfinalizing 03/25/19 05:23 EDEL Chart Audit Electronically signed by Ricarda [facility] Conversion Continuous Process Rotary Drum Tanner Cerner at 05/24/2022 5:45 PM CDT documented in this encounter Plan of Treatment Not on file documented as of this encounter Visit Diagnoses Not on filedocumented in this encounter Care Teams Ferryboat Deckhand Relationship Specialty Start Date End Date Vianey Ann MD [address] [place] [address] PCP - General Family Medicine 05/06/22 Beulah Shay MD [address] [facility] [address] [place] [address] Referring Physician Obstetrics/Gynecology 05/06/22 documented as of this encounter
--- OUTSIDE RECORDS SUMMARY | 2024-11-30 10:40 | XMS_ITS | Encounter Summary ---
Author Organization [employer] ([place], [place], [place], [place]) Address [address] [place] [address] Care Team Providers Care Goods Layer Name Role Phone Vianey Ann MD Primary Care Provider + [phone] Jewell Shay MD Unavailable [phone] Encounter Details Date Type Department Care Team (Late st Contact Info) Description 03/24/2019 Transcribed Document [facility] [place] Family Medicine [address] [place] [address] ProviderFarhan MD [address] [place] [address] Social History Tobacco Use Types Packs/Day Years Used Date Smoking Tobacco: Never Assessed Comments Unknown Sex and Gender Information Value Date Recorded Sex Assigned at Not on file Legal Sex Female 3:07 PM CDT Gender Identity Not on file Sexual Orientation Not on file documented as of this encounter Miscellaneous Notes * Cerner Conversion Note - Farhan ProviderMD - 03/24/2019 2:45 PM DISTRIBUTION SYSTEM OPERATOR DOUG Main OR PostOp Summary Primary Physician: JEWELL SHAY MD-OBG Finalized Date/Time: 03/24/19 16:41:14 Pt. Name: BEATRIS PERRYNai Mcelroy/Sex: 1970 Female Med Rec #: [id number] Physician: JEWELL SHAY MD-OBG Financial #: [id number] Pt. Type: O Room/Bed: EAS/2 Admit/Disch: 03/24/19 13:02:00 - Institution[place] [facility] [place] PostOp Case Times Entry 1 In PACU II 03/24/19 15:50:00 Ready for PACU II 03/24/19 16:40:00 Discharge Discharge from PACU 03/24/19 16:40:00 II Last Modified By: OBEY CA RN 03/24/19 16:41:12 Finalized By: OBEY CA RN Document Signatures Signed By: OBEY CA RN 03/24/19 16:41 documented in this encounter Plan of Treatment Not on file documented as of this encounter Visit Diagnoses Not on filedocumented in this encounter Care Teams Goods Layer Relationship Specialty Start Date End Date Vianey Ann MD [address] [place] [address] [address] [place] [address] PCP - General Family Medicine 05/06/22 Jewell Shay MD [address] [facility] [address] [place] [address] Referring Physician Obstetrics/Gynecology 05/06/22 documented as of this encounter
--- OUTSIDE RECORDS SUMMARY | 2024-11-30 10:40 | XMS_ITS | Encounter Summary ---
Author Organization [employer] ([place], [place], [place], [place]) Address [address] [place] [address] Care Team Providers Care Automation Design Engineer Name Role Phone Vianey Ann MD Primary Care Provider + [phone] Jewell Shay MD Unavailable [phone] Encounter Details Date Type Department Care Team (Late st Contact Info) Description 03/24/2019 Transcribed Document [facility] [place] Family Medicine [facility] [place] [address] ProviderFarhan MD [address] [place] [address] Social History Tobacco Use Types Packs/Day Years Used Date Smoking Tobacco: Never Assessed Comments Unknown Sex and Gender Information Value Date Recorded Sex Assigned at Not on file Legal Sex Female 3:07 PM CDT Gender Identity Not on file Sexual Orientation Not on file documented as of this encounter Miscellaneous Notes * Cerner Conversion Note - Farhan ProviderMD - 03/24/2019 2:45 PM BELT POLISHER FCOE Main OR PACU Summary Primary Physician: JEWELL SHAY MD-OBG Finalized Date/Time: 03/24/19 16:03:05 Pt. Name: ÓSCAR BEATRIS SHAYNai SalasB./Sex: 1970 Female Med Rec #: [id number] Physician: JEWELL SHAY MD-OBG Financial #: [id number] Pt. Type: O Room/Bed: EAS/2 Admit/Disch: 03/24/19 13:02:00 - [place] [facility] [place] PACU Case Times Entry 1 In PACU I 03/24/19 15:18:00 Ready for PACU 03/24/19 15:48:00 Discharge Discharge from PACU 03/24/19 15:48:00 I Last Modified By: Zofia Walker, [id number] CAR 03/24/19 16:02:57 Finalized By: Zofia Walker [id number] CAR Document Signatures Signed By: Zofia Walker [id number] CAR 03/24/19 16:03 documented in this encounter Plan of Treatment Not on file documented as of this encounter Visit Diagnoses Not on filedocumented in this encounter Care Teams Automation Design Engineer Relationship Specialty Start Date End Date Vianey Ann MD [address] [place] [address] PCP - General Family Medicine 05/06/22 Jewell Shay MD [address] [facility] [address] [place] [address] Referring Physician Obstetrics/Gynecology 05/06/22 documented as of this encounter
--- OUTSIDE RECORDS SUMMARY | 2024-11-30 10:41 | XMS_ITS | Encounter Summary ---
Author Organization [employer] ([place], [place], [place], [place]) Address [address] [place] [address] Care Team Providers Care Bottom Stop Attacher Name Role Phone Vianey Ann MD Primary Care Provider + [phone] Beulah Shay MD Unavailable [phone] Encounter Details Date Type Department Care Team (Late st Contact Info) Description 08/01/2018 Transcribed Document [facility] [place] Family Medicine [facility] [place] [address] ProviderFarhan MD [address] [place] [address] Social History Tobacco Use Types Packs/Day Years Used Date Smoking Tobacco: Never Assessed Comments Unknown Sex and Gender Information Value Date Recorded Sex Assigned at Not on file Legal Sex Female 3:07 PM CDT Gender Identity Not on file Sexual Orientation Not on file documented as of this encounter Miscellaneous Notes * Cerner Conversion Note - Farhan ProviderMD - 08/01/2018 1:00 PM CDT [facility] IntraOp Summary Primary Physician: JAM FTIZGERALD MD-GAE Finalized Date/Time: 08/01/18 13:10:54 Pt. Name: BEATRIS PERRYE /Sex: 1970 Female Med Rec #: [id number] Physician: JAM FITZGERALD MD-GAE Financial #: [id number] Pt. Type: O Room/Bed: [facility] Admit/Disch: 08/01/18 10:50:00 - Institution: [facility] Endo - Case Attendance Entry 1 Entry 2 Entry 3 Case Attendee Becky FITZGERALD Rachel G, RN OTHER, ATTENDEE JHOANA POLK Role Performed Surgeon/Proceduralist, Associate Material Handler, First STITCHER TAPE CONTROLLED MACHINE/Nurse Colorist First Time In 08/01/18 12:51:00 08/01/18 12:51:00 08/01/18 12:51:00 Time Out 08/01/18 13:11:00 08/01/18 13:11:00 08/01/18 13:11:00 Procedure Colonoscopy Colonoscopy Colonoscopy Other Attendee Brenda Gutierrez CRNA Superficial Wound Closed By: Last Modified By: Zofia Pena, RN Zofia Pena, RN Zofia Pena, RN 08/01/18 13:09:50 08/01/18 13:09:50 08/01/18 13:09:50 Entry 4 Case Attendee JET DIAS Role Performed Scrub, First Time In 08/01/18 12:51:00 Time Out 08/01/18 13:11:00 Procedure Colonoscopy Other Attendee Superficial Wound Closed By: Last Modified By: Zofia Pena, JEFF 08/01/18 13:09:50 [facility] Endo - Case Attendance Audit 08/01/18 13:09:50 Refrigeration System Installer: [email or web address] Modifier: [email or web address] 1 <+> Time Out 1 <*> Procedure Colonoscopy 2 <+> Time Out 2 <*> Procedure Colonoscopy 3 <+> Time Out 3 <*> Procedure Colonoscopy 4 <+> Time Out 4 <*> Procedure Colonoscopy 08/01/18 13:01:10 Refrigeration System Installer: [email or web address] Modifier: [email or web address] <+> 1 Procedure 2 <*> Procedure Colonoscopy 3 <*> Procedure Colonoscopy 4 <*> Procedure Colonoscopy 08/01/18 12:55:41 Refrigeration System Installer: [email or web address] Modifier: [email or web address] 2 <+> Time In 2 <*> Procedure Colonoscopy 3 <+> Time In 3 <*> Procedure Colonoscopy 4 <+> Time In 4 <*> Procedure Colonoscopy [facility] Endo - Case Times Entry 1 Patient In Room Time 08/01/18 12:51:00 Out Room Time 08/01/18 13:11:00 Anesthesia Start Time 08/01/18 12:51:00 Stop Time 08/01/18 13:11:00 Anesthesia Ready 08/01/18 12:51:00 Surgery / Procedure Times Start Time 08/01/18 13:00:00 Stop Time 08/01/18 13:09:00 Last Modified By: Zofia Pena RN 08/01/18 13:09:46 [facility] - Case Times Audit 08/01/18 13:09:46 Refrigeration System Installer: GODIRK Modifier: [email or web address] <+> 1 Out Room Time <+> 1 Stop Time <+> 1 Stop Time 08/01/18 13:01:15 Refrigeration System Installer: GODRIK Modifier: [email or web address] <+> 1 Start Time [facility] - Delays Entry 1 Delay Reason Previous case ran over Duration 60 Minute(s) Last Modified By: Zofia Pena RN 08/01/18 12:56:56 [facility] - Departure from OR Entry 1 Integumentary Assessment Integumentary WDL Assessment WDL Transfer/Handoff Transfer to PACU Phase I Handoff Reported to LOY KINNEY RN Post-op Transport Stretcher/Que Via Patient Transport Zofia Pena RN, Accompanied by OTHER, ATTENDEE Last Modified By: Zofia Pena RN 08/01/18 12:57:17 [facility] - Endoscopy Details Entry 1 Abdomen Procedure Soft, Non-Tender Assessment Procedure Abdomen 08/01/18 12:51:00 Assessment D/T Radio Frequency Ablation Last Modified By: Zofia Pena RN 08/01/18 12:57:36 [facility] - Fire Risk Assessment Entry 1 Fire Info Surgical Site or 0- No Incision Above the Xyphoid Open O2 Source 1- Yes (Mask or Cannula) Available Ignition 1- Yes (ESU, Laser, Light Source) Fire Risk 2 Assessment Score Fire Score Fire Risk Yes Assessment Complete Fire Risk Zofia Pena RN Assessment Verified By Fire Risk 08/01/18 12:51:00 Assessment Verified Date/Time Fire Risk High Risk Protocol Yes Implemented Standard Fire Yes Safety Precautions Followed Last Modified By: Zofia Pena RN 08/01/18 12:57:46 [facility] - General Case Senior Sales Operations Manager 1 Case Information OR Endo 04 [facility] Case Level 1 Room Verified Yes Wound Class III - Contaminated Specialty SN Gastroenterology Anesthesia Type MAC ASA Class 2 Diagnosis Preop Diagnosis screening Postop Diagnosis normal exam, internal hemorrhoids Last Modified By: Zofia Pena RN 08/01/18 13:10:30 [facility] - General Case Data Audit 08/01/18 13:10:30 Refrigeration System Installer: GODIRK Modifier: [email or web address] 1 <*> Postop Diagnosis normal exam 08/01/18 13:09:02 Refrigeration System Installer: MARY Modifier: [email or web address] <+> 1 Postop Diagnosis [facility] - Intraoperative Assessment Entry 1 Valid History / Yes Physical in Chart Preoperative Yes Checklist Reviewed/Evaluated Allergies Reviewed Yes Patient is Latex No Sensitive Level of WDL Consciousness (WDL = Alert, Oriented to Person, Place, and Time) Present Upon IVs, ECG monitored Arrival to OR Last Modified By: Zofia Pena RN 08/01/18 12:58:46 [facility] - Intraoperative Equipment Entry 1 Type Scope Equipment Intraop Monitoring Blood Pressure Arm, left upper Location Pulse Oximeter Hand, right Probe Site Antiembolic Devices Scopes Flexible Endoscopes Colonoscope, Peds Used Scope Serial [id number] Number/Identificatio n Number Photo/Video Documentation Photo Yes Video No Last Modified By: Zofia Pena RN 08/01/18 12:59:58 [facility] - Intraoperative Equipment Audit 08/01/18 12:59:58 Refrigeration System Installer: [email or web address] Modifier: [email or web address] <+> 1 Photo <+> 1 Video <+> 1 Blood Pressure Location <+> 1 Pulse Oximeter Probe Site <+> 1 Flexible Endoscopes Used <+> 1 Scope Serial Number/Identification Number [facility] - Patient Positioning Entry 1 Procedure Colonoscopy Body Position Lateral, right side up Left Arm Position Resting at side Right Arm Position Resting at side Left Leg Position Other Right Leg Position Other Position Comments Right leg over Left leg uncrossed Feet Uncrossed Yes Pressure Points Yes Checked Positioned By Zofia Pena RN, OTHER, ATTENDEE Position Verified Positioning Yes Verified by Anesthesia Positioning Yes Verified by Surgeon Last Modified By: Zofia Pena RN 08/01/18 13:00:25 [facility] - Sign In Entry 1 Patient, Site, Yes Procedure Identified Surgical Consent Yes Confirmed Surgical Site N/A Marked by person performing procedure Allergies Yes Airway Hypothermia Risk No Warming Measures No Taken Last Modified By: Zofia Pena RN 08/01/18 13:00:36 [facility] - Sign Out Entry 1 RN Confirmation Surgical Yes Procedure(s) Identified Instrument, Sponge N/A and Sharps Counts Correct/Documented Equipment Problems N/A Documented Specimen Labeled Yes Correctly Urinary Catheter N/A Documented in IView Safety Checklist Yes Elements Complete? RN Sign Out Zofia Pena, RN Signature RN Sign Out 08/01/18 13:10:00 Signature Date/Time Plan of Care Outcome - [...] of Care Outcome - Xray/Images OUTCOME STATEMENT: N/A Absence of observable signs or symptoms of radiation injury Plan of Care Outcome - Counts OUTCOME STATEMENT: N/A Absence of signs and symptoms of injury related to extraneous objects Last Modified By: Zofia Pena RN 08/01/18 13:10:43 [facility] - Surgical Procedures Entry 1 Procedure Colonoscopy Primary Procedure Yes Primary Surgeon JAM FITZGERALD MD-GANai Start 08/01/18 13:00:00 Stop 08/01/18 13:09:00 Physician States 08/01/18 13:03:00 Cecum Reached Anesthesia Type MAC Specialty SN Gastroenterology Wound Class III - Contaminated Last Modified By: Zofia Pena RN 08/01/18 13:10:20 [facility] - Surgical Procedures Audit 08/01/18 13:10:20 Refrigeration System Installer: [email or web address] Modifier: [email or web address] <+> 1 Stop 08/01/18 13:05:23 Refrigeration System Installer: [email or web address] Modifier: [email or web address] 1 <*> Procedure Colonoscopy 1 <+> Start 1 <+> Physician States Cecum Reached E Endo - Time Out Entry 1 Procedure to be Colonoscopy Performed Time Out Time Out Pause Time 08/01/18 13:00:00 All activity Yes suspended (unless life threatening emergency) Team Verbally Correct patient Confirms Information identity, Correct side and site are marked, Consent form is present and accurate, Agreement on the procedure to be done, Correct patient position, Relevant images/results properly labeled/appropriately displayed Antibiotic N/A Prophylaxis Administered Or In Progress Within the Last 60 Minutes Beta Miya N/A Administered Venous N/A Thromboembolism Prophylaxis Required Anticipated Critical Events Surgeon None expected Last Modified By: Zofia Pena RN 08/01/18 13:00:59 Case Comments <None> Finalized By: Zofia Pena RN Document Signatures Signed By: Zofia Pena RN 08/01/18 13:10 Electronically signed by [facility] Conversion Cord Cutter Cerner at 05/24/2022 5:34 PM CDT documented in this encounter Plan of Treatment Not on file documented as of this encounter Visit Diagnoses Not on filedocumented in this encounter Care Teams Bottom Stop Attacher Relationship Specialty Start Date End Date Vianey Ann MD [address] [place] [address] PCP - General Family Medicine 05/06/22 Beulah Shay MD [address] [facility] [address] [place] [address] Referring Physician Obstetrics/Gynecology 05/06/22 documented as of this encounter
--- OUTSIDE RECORDS SUMMARY | 2024-11-30 10:41 | XMS_ITS | Encounter Summary ---
Author Organization [employer] ([place], [place], [place], [place]) Address [address] [place] [address] Care Team Providers Care Power Plant Supervisor Name Role Phone Vianey Ann MD Primary Care Provider + [phone] Beulah Shay MD Unavailable [phone] Encounter Details Date Type Department Care Team (Late st Contact Info) Description 08/01/2018 Transcribed Document [facility] [place] [address] ProviderFarhan MD [address] [place] [address] Social History Tobacco Use Types Packs/Day [...] - 08/01/2018 1:00 PM CDT [facility] PACU Summary Primary Physician: JAM FITZGERALD MD-GAE Finalized Date/Time: 08/01/18 13:40:39 Pt. Name: ÓSCAR BEATRIS SHAYE /Sex: 1970 Female Med Rec #: [id number] Physician: JAM FITZGERALD MD-GAE Financial #: [id number] Pt. Type: O Room/Bed: EEN/18 Admit/Disch: 08/01/18 10:50:00 - Institution: [facility] PACU Case Times Entry 1 In PACU I 08/01/18 13:15:00 Ready for PACU 08/01/18 13:34:00 Discharge Discharge from PACU 08/01/18 13:40:00 I Finalized By: LOY KINNEY, RN Document Signatures Signed By: LOY KINNEY, RN 08/01/18 13:40 documented in this encounter Plan of Treatment Not on file documented as of this encounter Visit Diagnoses Not on filedocumented in this encounter Care Teams Power Plant Supervisor Relationship Specialty Start Date End Date Vianey Ann MD [address] [place] [address] [address] [place] [address] PCP - General Family Medicine 05/06/22 Beulah Shay MD [address] [facility] [address] [place] [address] Referring Physician Obstetrics/Gynecology 05/06/22 documented as of this encounter
--- OUTSIDE RECORDS SUMMARY | 2024-11-30 10:41 | XMS_ITS | Encounter Summary ---
Author Organization [employer] ([place], [place], [place], [place]) Address [address] [place] [address] Care Team Providers Care Trousseau Consultant Name Role Phone Vianey Ann MD Primary Care Provider + [phone] Beulah Shay MD Unavailable [phone] Encounter Details Date Type Department Care Team (Late st Contact Info) Description 03/24/2019 Transcribed Document [facility] Medicine [address] [place] [address] ProviderFarhan MD [address] [place] [address] Social History Tobacco Use Types Packs/Day Years Used Date Smoking Tobacco: Never Assessed Comments Unknown Sex and Gender Information Value Date Recorded Sex Assigned at Not on file Legal Sex Female 3:07 PM CDT Gender Identity Not on file Sexual Orientation Not on file documented as of this encounter Miscellaneous Notes * Cerner Conversion Note - Farhan ProviderMD - 03/24/2019 4:18 PM 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 Shay's discharge instruction sheet Discharge Activity: Discharge Activity: Activity as tolerated Diet: Advance as tolerated and resume usual diet, Discharge Follow-Up Appointments Follow Up with BEULAH SHAY When Comments Call on Wednesday to schedule follow up appointment Where: [address] [place] [address] [facility] (1) Medications Take your medications faithfully. Do NOT skip [...] cramping, rapid heartbeat, difficulty sleeping, and nervousness. Please dispose of unused and medications per pharmacy guidance. Education Materials General Anesthesia, Adult, Care After This sheet [...] activities are safe for you. ??? Take zmov-dtf-dicbgqi and prescription medicines only as told by [...] 05/03/2001 Document Revised: 09/10/2017 Document Reviewed: 09/10/2017 [employer] Interactive Patient Education ?? 2019 [employer]. silver sulfadiazine topical (AURELIANO anders SUL fa DYE a zedany POLLARD ik al) Silvadene, SSD, Thermazene What [...] you, tell your doctor if you have: ?? liver disease; ?? kidney disease; ?? a genetic enzyme deficiency called tyzrnxm-4-emqajllsz dehydrogenase (G6PD) deficiency; or ?? an allergy [...] your doctor at once if you have: ?? sudden weakness or ill feeling, fever, chills, [...] may report side effects to FDA at 3-473-GOC-9582. What other drugs will affect silver sulfadiazine topical? Other drugs may interact with silver sulfadiazine topical, including prescription and kppj-wun-hokqwwa medicines, vitamins, and herbal products. Tell each [...] to ensure that the information provided by [employer]. ('[employer]') is accurate, up-to-date, and complete, but no guarantee is made to that effect. Drug information contained herein may be time sensitive. [employer] information has been compiled for use by healthcare practitioners and consumers in the [place] and therefore [employer] does not warrant that uses outside of the [place] are appropriate, unless specifically indicated otherwise. [employer] drug information does not endorse drugs, diagnose patients or recommend therapy. [employer] drug information is an informational resource designed [...] effective or appropriate for any given patient. [employer] does not assume any responsibility for any aspect of healthcare administered with the aid of information [employer] provides. The information contained herein is not intended to cover all possible uses, directions, precautions, warnings, drug interactions, allergic reactions, or adverse effects. If you have questions about the drugs you are taking, check with your doctor, nurse or pharmacist. Copyright 0061-0412 [employer]. Version: 3.01. Revision Date: 07/12/2013. Emergency Awareness and Preventative Care STROKE is an EMERGENCY Every Minute Counts Act FAST and Check for these signs: FACE Does the face look uneven? ARM Does one arm drift down? SPEECH Does their speech sound strange? TIME Call at any sign of stroke Stroke Risk Factors Atrial Fibrillation (irregular heartbeat) Diabetes Family history of stroke Heart Disease Heavy alcohol use High Blood Pressure High Cholesterol Physical inactivity and obesity Smoking Cigarette Smoking The facts are clear, cigarette smoking will shorten your life. Smoking can cause many illnesses along the way. As a healthcare provider, we recommend that you stop smoking. Assistance with quitting is available by contacting 2-433-SCIX-NOW. This is a free resource providing counseling, support, and referral. Or you may contact your personal physician. National Suicide Prevention Lifeline: The National Suicide Prevention Lifeline is a national network of local crisis centers that provides free and confidential emotional support to people in suicidal crisis or emotional distress 24 hours a day, 7 days a week. Don't Wait! Stop a Heart Attack Before it Starts What is a heart attack? A heart attack is damage or to a part of the heart from severely decreased or lack of blood flow to the heart. Over time, arteries can become narrow from the buildup of fat and cholesterol, which is called plaque. The plaque can rupture causing a blood clot to form. When the blood clot forms, the artery can become severely narrowed or completely blocked, causing a heart attack. Heart attack is the leading cause of in the [place]. 85% of muscle damage occurs within the first 2 hours. Delay in the recognition of heart attack symptoms increases the chances of . Know the early symptoms of a heart attack: Nausea Feeling of fullness in chest Jaw Pain Pain that travels down one or both arms Fatigue/being tired Anxiety Back Pain Chest pressure, squeezing, or discomfort Shortness of breath Sweating, or a cold sweat Feeling of impending doom There are unusual signs of a heart attack, too! Women, the elderly, and diabetics may present with atypical symptoms: Fainting/dizziness Weakness Confusion Risk Factors for a Heart Attack Some heart disease risk factors, such as age and family history, cannot be changed. Others, like smoking and lack of exercise, can be changed. Smoking High Cholesterol High Blood Pressure Family History Obesity Age Gender (Males are at higher risk) Lack of Exercise Diabetes Diet Stress Excessive Alcohol Intake If you or someone you know is experiencing the signs and symptoms of a heart attack, DON???T DELAY. Call immediately and seek help. If someone collapses, perform CPR! Do not attempt to drive if you are having symptoms of heart attack. Hands-Only CPR Why Hands-Only CPR? Hands-Only CPR has been shown to be as effective as conventional CPR for cardiac arrests that occur outside of a hospital. Survival depends on immediately receiving CPR from someone nearby. How do you perform Hands-Only CPR? There are two easy steps: Call if you see a teen or adult collapse Push hard and fast in the center of the chest at a beat of 100 beats per minute. Save a life! 4 WAYS TO GET AHEAD OF SEPSIS SEPSIS is a MEDICAL EMERGENCY. Time matters! Infections put you and your family at risk for a life-threatening condition called sepsis. Sepsis is the body's extreme response to an infection. It is life-threatening, and without timely treatment, sepsis can rapidly lead to tissue damage, organ failure, and . Sepsis happens when an infection you already have-in your skin, lungs, urinary tract or somewhere else-triggers a chain reaction throughout your body. 1 [...] sepsis or if you have an infection that is not getting better or is getting worse. To learn more about sepsis and how to prevent infections, visit www.cdc.gov/sepsis. Test Results Laboratory or Other Results This Visit (last charted value for your 03/24/2019 visit) Hematology 03/24/2019 2:01 PM WBC: 6.7 K/uL -- Normal range between ( 3.9 and 10.0 ) RBC: 4.89 Million/uL -- Normal range between ( 3.93 and 5.22 ) Hct: 44.0 % -- Normal range between ( 34.1 and 44.9 ) Hgb: 14.5 Gram/dL -- Normal range between ( 11.2 and 15.7 ) Platelet Count: 279 K/uL -- Normal range between ( 163 and 369 ) MCH: 29.7 pg -- Normal range between ( 25.6 and 32.2 ) MCHC: 33.0 Gram/dL -- Normal range between ( 32.3 and 36.5 ) MCV: 90.0 fL -- Normal range between ( 79.0 and 94.8 ) Slide Review: No Eos %: 0.9 % -- Normal range between ( 1.0 and 7.0 ) Uinta #: 0.42 K/uL -- Normal range between ( 0.24 and 0.82 ) Eos #: 0.06 K/uL -- Normal range between ( 0.04 and 0.54 ) [place]inta %: 6.2 % -- Normal range between ( 4.7 and 12.5 ) Baso %: 0.6 % -- Normal range between ( 0.0 and 1.0 ) Baso #: 0.04 K/uL -- Normal range between ( 0.01 and 0.08 ) RDW: 13.2 % -- Normal range between ( 11.6 and 14.4 ) Neut %: 65.6 % -- Normal range between ( 34.0 and 71.0 ) Neut #: 4.41 K/uL -- Normal range between ( 1.56 and 6.13 ) Lymph %: 26.6 % -- Normal range between ( 19.3 and 53.0 ) Lymph #: 1.79 K/uL -- Normal range between ( 1.18 and 3.74 ) MPV: 9.7 fL -- Normal range between ( 9.4 and 12.4 ) IG#: 0 x10(3)/uL IG%: 0 % -- Normal range between ( 0 and 1 ) General Chemistry 03/24/2019 2:01 PM Creatinine Level: 0.92 mg/dL -- Normal range between ( 0.55 and 1.02 ) Sodium Level: 138 mmol/L -- Normal range between ( 136 and 146 ) Potassium Level: 3.8 mmol/L -- Normal range between ( 3.5 and 5.1 ) Chloride Level: 105 mmol/L -- Normal range between ( 102 and 112 ) Carbon Dioxide Level: 31 mmol/L -- Normal range between ( 21 and 32 ) Anion Gap: 6 -- Normal range between ( 9 and 20 ) Bilirubin Total: 0.5 mg/dL -- Normal range between ( 0.2 and 1.3 ) Hgb A1C: 6.00 % -- Normal range between ( 4.20 and 6.30 ) A/G Ratio: 1.2 -- Normal range between ( 1.1 and 2.5 ) ALT: 21 Units/Liter -- Normal range between ( 12 and 78 ) AST: 12 Units/Liter -- Normal range between ( 5 and 37 ) Globulin: 3.5 Gram/dL -- Normal range between ( 1.5 and 4.5 ) Alk Phos: 100 Units/Liter -- Normal range between ( 27 and 136 ) eAVG Glucose: 126 mg/dL Bun/Creatinine: 18.5 -- Normal range between ( 8.0 and 20.0 ) Calcium Level: 9.2 mg/dL -- Normal range between ( 8.5 and 10.1 ) eGFR : >60 mL/min/1.73m2 eGFR NonAfrican: >60 mL/min/1.73m2 Glucose Level: 86 mg/dL -- Normal range between ( 74 and 106 ) Blood Urea Nitrogen: 17 mg/dL -- Normal range between ( 7 and 22 ) Protein Total: 7.7 Gram/dL -- Normal range between ( 6.4 and 8.2 ) Albumin Level: 4.2 Gram/dL -- Normal range between ( 3.4 and 5.0 ) Lipid Studies 03/24/2019 2:01 PM Cholesterol Tot: 232 mg/dL -- Normal range between ( 0 and 199 ) Cholesterol HDL: 88.0 mg/dL Cholesterol LDL Calculation: 134.2 mg/dL -- Normal range between ( 0.0 and 99.0 ) Cholesterol VLDL Calculation: 9.8 mg/dL -- Normal range between ( 5.0 and 40.0 ) Cholesterol/HDL Ratio: 2.6 -- Normal range between ( 0.0 and 3.2 ) Triglyceride: 49 mg/dL -- Normal range between ( 0 and 249 ) LDL/HDL Ratio: 1.5 -- Normal range between ( 0.0 and 3.2 ) Endocrinology 03/24/2019 2:01 PM TSH: 0.994 mcInt Units/mL -- Normal range between ( 0.358 and 3.740 ) Patient Name:BEATRIS PERRY I have received this information and was given the opportunity to ask questions. Patient/Gasoline Power Shovel Operator Name: Patient/Gasoline Power Shovel Operator Signature: Relationship to Patient: Clinician/Hospital Gasoline Power Shovel Operator Signature: Date: documented in this encounter Plan of Treatment Not on file documented as of this encounter Visit Diagnoses Not on filedocumented in this encounter Care Teams Trousseau Consultant Relationship Specialty Start Date End Date Vianey Ann MD [address] [place] [address] [address] [place] [address] PCP - General Family Medicine 05/06/22 Beulah Shay MD [address] [facility] [address] [place] [address] Referring Physician Obstetrics/Gynecology 05/06/22 documented as of this encounter
--- OUTSIDE RECORDS SUMMARY | 2024-11-30 10:41 | XMS_ITS | Encounter Summary ---
Author Organization [employer] ([place], [place], [place], [place]) Address [address] [place] [address] Care Team Providers Care Rough Carpenter Name Role Phone Vianey Ann MD Primary Care Provider + [phone] Beulah Shay MD Unavailable [phone] Encounter Details Date Type Department Care Team (Late st Contact Info) Description 03/24/2019 Transcribed Document [facility] [place] [address] [place] [address] ProviderFarhan MD [address] [place] [id number] Social History Tobacco Use Types Packs/Day Years Used Date Smoking Tobacco: Never Assessed Comments Unknown Sex and Gender Information Value Date Recorded Sex Assigned at Not on file Legal Sex Female 3:07 PM CDT Gender Identity Not on file Sexual Orientation Not on file documented as of this encounter Miscellaneous Notes * Cerner Conversion Note - Farhan Haddad MD - 03/24/2019 3:19 PM BREAKER UP MACHINE OPERATOR DATE OF PROCEDURE: 03/24/2019 SURGEON: Beulah Shay MD PREOPERATIVE DIAGNOSIS: 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 PROCEDURE: Laser ablation of dysplastic lesions in the vaginal cuff area and around the vulvar introitus. Colposcopy of the entire vagina and vulva. ESTIMATED BLOOD LOSS: Zero. ANESTHESIA: General. FINDINGS: Patient is status post previous prolapse surgery, which was holding up very well. The vaginal cuff area had few Lugol negative lesions consistent with the previously diagnosed dysplasia. The vaginal cuff was well suspended and pulled up. The anterior vaginal wall was in good position without any prolapse or urethral hypermobility. The lesions on the outside were mainly around the introitus and the rectovaginal area. There were also few molluscum contagiosum lesions. DESCRIPTION OF PROCEDURE: Under general anesthesia, patient was placed in dorsal lithotomy position. The patient was prepped with vinegar and wet towels and then laser based speculum was used to visualize the vaginal cuff area. Lugol solution was applied and then visualizing the area through the colposcope. We identified the abnormal areas in the crevices of the vaginal folds and the apex of the vagina and these areas that were superficially removed with the RevoLix laser under colposcopic visualization. We inspected the vagina further all the way down to the introitus and the suspicious lesions were removed also with the laser and the introitus. Vinegar was applied again to help visualization and rectovaginal area and around the opening treated very gently with the laser superficially and the lesions were evaporated. Then the lasered area was shrunken down with the defocused laser beam. Few molluscum contagiosum lesions on the mons pubis were removed. Lidocaine gel was applied to the outside area. Patient tolerated procedure well and was taken to recovery room in good condition. /[id number] MD NOEMI Joy/OSWALD / NOEMI / MODL /[id number] Electronically signed by Ricarda [facility] Conversion Fence Installer Helper Cerner at 05/24/2022 5:48 PM CDT documented in this encounter Plan of Treatment Not on file documented as of this encounter Visit Diagnoses Not on filedocumented in this encounter Care Teams Rough Carpenter Relationship Specialty Start Date End Date Vianey Ann MD [address] [place] [address] PCP - General Family Medicine 05/06/22 Beulah Shay MD 160 [facility] [address] [place] [address] Referring Physician Obstetrics/Gynecology 05/06/22 documented as of this encounter
--- OUTSIDE RECORDS SUMMARY | 2024-11-30 10:41 | XMS_ITS | Encounter Summary ---
Author Organization [employer] ([place], [place], [place], [place]) Address [address] [place] [address] Care Team Providers Care Electric Meter Technician Name Role Phone Vianey Ann MD Primary Care Provider + [phone] Beulah Shay MD Unavailable [phone] Encounter Details Date Type Department Care Team (Late st Contact Info) Description 08/01/2018 Transcribed Document [facility] [place] Family [place] [address] ProviderFarhan MD [address] [place] [address] Social History Tobacco Use Types Packs/Day Years Used Date Smoking Tobacco: Never Assessed Comments Unknown Sex and Gender Information Value Date Recorded Sex Assigned at Not on file Legal Sex Female 3:07 PM CDT Gender Identity Not on file Sexual Orientation Not on file documented as of this encounter Miscellaneous Notes * Cerner Conversion Note - Farhan ProviderMD - 08/01/2018 12:00 PM CDT [facility] PreOp Summary Primary Physician: JAM FITZGERALD MD-GAE Finalized Date/Time: 08/01/18 11:49:05 Pt. Name: BEATRIS PERRYE /Sex: 1970 Female Med Rec #: [id number] Physician: JAM FITZGERALD MD-GAE Financial #: [id number] Pt. Type: O Room/Bed: [facility] [place] Admit/Disch: 08/01/18 10:50:00 - Institution: [facility] PreOp Case Times Entry 1 In Preop 08/01/18 11:30:00 Ready for Holding n/a Room Patient Ready for 08/01/18 11:48:00 Surgery Patient Out of Preop 08/01/18 11:48:00 Patient Out of n/a Holding Room [facility] PreOp Case Times Audit 08/01/18 11:49:01 Grizzlyman: JUNIOR Modifier: GALINA <+> 1 Patient Out of Preop <+> 1 Patient Ready for Surgery Finalized By: PARAM VILLALPANDO, RN Document Signatures Signed By: PARAM VILLALPANDO RN 08/01/18 11:49 documented in this encounter Plan of Treatment Not on file documented as of this encounter Visit Diagnoses Not on filedocumented in this encounter Care Teams Electric Meter Technician Relationship Specialty Start Date End Date Vianey Ann MD [address] [place] [address] [address] [place] [address] PCP - General Family Medicine 05/06/22 Beulah Shay MD 160 [facility] 205 [place] [address] Referring Physician Obstetrics/Gynecology 05/06/22 documented as of this encounter
--- OUTSIDE RECORDS SUMMARY | 2024-11-30 10:41 | XMS_ITS | Encounter Summary ---
Author Organization [employer] ([place], [place], [place], [place]) Address [address] [place] [address] Care Team Providers Care Marketing Communications Manager Name Role Phone Vianey Ann MD Primary Care Provider + [phone] Beulah Shay MD Unavailable [phone] Encounter Details Date Type Department Care Team (Late st Contact Info) Description 08/01/2018 Transcribed Document [facility] [place] Family Medicine [address] [place] [address] ProviderFarhan MD [address] [place] [address] Social History Tobacco Use Types Packs/Day Years Used Date Smoking Tobacco: Never Assessed Comments Unknown Sex and Gender Information Value Date Recorded Sex Assigned at Not on file Legal Sex Female 3:07 PM CDT Gender Identity Not on file Sexual Orientation Not on file documented as of this encounter Miscellaneous Notes * Cerner Conversion Note - Farhan ProviderMD - 08/01/2018 1:23 PM CDT [address] [address] ÓSCAR BEATRIS ELISABETH :1970 Visit Time:08/01/2018 What to do next Your Diagnosis Family history of malignant neoplasm of digestive organs, Family history of malignant neoplasm of digestive organs Instructions From Your Care Team Diet after Discharge: Resume usual diet as tolerated, Do not drink any alcoholic beverages, _ Fluid Restriction after Discharge: _ Activity after Discharge: _, Rest and relax today, No strenuous activity Lifting Restrictions: _ Weight Bearing: _ Bedrest: _ Driving after Discharge: no driving today May Return to Work/School: am Showering/Bathing: May shower, _ Notify Provider of: problems or concerns Wound/Incision Care after Discharge: _, _ Medical Equipment for Home Use: Home Health Services: Community Services: repeat colonoscopy in 10 years Follow-Up Appointments Follow Up with JAM FITZGERALD MD-GAE When Within As needed Comments see gi report Where: [address] [facility] [address] [place] [address]- Medications What When Instructions Next Dose Non Formulary (Non Formulary med) E2/ T/ D Cream one click on skin at bedtime Take your medications faithfully. Do NOT skip [...] and medications per pharmacy guidance. Education Materials Hemorrhoids Hemorrhoids are swollen veins in and [...] Take warm sitz baths for 20 minutes, 3???4 times a day to ease pain and discomfort. ??? If directed, apply ice to the affected area. Using ice packs between sitz baths may be helpful. ? Put ice in a plastic bag. ? Place a towel between your skin and the bag. ? Leave the ice on for 20 minutes, 2???3 times a day. General instructions ??? Take afgz-vcy-ncwuktk and prescription medicines only as told by [...] 01/22/2001 Document Revised: 06/24/2016 Document Reviewed: 10/09/2015 [employer] Interactive Patient Education ?? 2019 [employer]. High-Fiber Diet Fiber, also called dietary fiber, [...] ??? Always check the fiber content on the nutrition facts label of any prepackaged food. Look [...] Barley. Bulgur wheat. Millet. Bran muffins. Popcorn. [place] wafer crackers. Vegetables Sweet potatoes. Spinach. Kale. Artichokes. Cabbage. Broccoli. Green peas. Carrots. Squash. Fruits Berries. Pears. Apples. Oranges. Avocados. Prunes and raisins. Dried figs. Meats and Other Protein Sources Wharton, kidney, ruth, and soy beans. Split peas. [...] 01/25/2006 Document Revised: 07/02/2016 Document Reviewed: 07/10/2014 [employer] Interactive Patient Education ?? 2018 [employer]. Colonoscopy, Adult, Care After This sheet gives [...] soft and easy to digest. ??? Take djbd-bdg-xlbwexi or prescription medicines only as told by [...] source. ? Leave the heat on for 20???30 minutes. ? Remove the heat if your [...] You have blood in your poop (stool) 2???3 days after the procedure. Get help right [...] 02/27/2011 Document Revised: 11/25/2017 Document Reviewed: 10/19/2016 [employer] Interactive Patient Education ?? 2019 [employer]. Emergency Awareness and Preventative Care STROKE is [...] Assistance with quitting is available by contacting 3-082-LBZOPerfusixNOW. This is a free resource providing counseling, [...] This Visit (last charted value for your 08/01/2018 visit) No Laboratory or Other Results This Visit Patient Name:BEATRIS PERRY I have received this information and was given the opportunity to ask questions. Patient/Build And Deployment Engineer Name: Patient/Build And Deployment Engineer Signature: Relationship to Patient: Clinician/Hospital Build And Deployment Engineer Signature: Date: Electronically signed by Ricarda, [facility] Conversion Medical Information Specialist Cerner at 05/24/2022 5:38 PM CDT documented in this encounter Plan of Treatment Not on file documented as of this encounter Visit Diagnoses Not on filedocumented in this encounter Care Teams Marketing Communications Manager Relationship Specialty Start Date End Date Vianey Ann MD 107 [facility] 200 [place] [address] PCP - General Family Medicine 05/06/22 Beulah Shay MD 160 [facility] [address] [place] [address] Referring Physician Obstetrics/Gynecology 05/06/22 documented as of this encounter
--- OUTSIDE RECORDS SUMMARY | 2024-11-30 10:41 | XMS_ITS | Encounter Summary ---
Author Organization [facility] Address [address] [place] [address] Care Team Providers Care Tower Control Operator Name Role Phone Vianey Ann MD Primary Care Provider [phone] Encounter Details Date Type Department Care Team (Late st Contact Info) Description 08/17/2024 Results Follow-Up [facility] PRIMARY CARE [address] [address] Vianey Ann MD [address] [address] Social History Tobacco Use Types Packs/Day Years [...] PM EDT documented as of this encounter Plan of Treatment Upcoming Encounters Date Type Department Care Team (Late st Contact Info) Description 12/26/2024 10:15 AM EST Office Visit [facility] [address] [address] Vianey Ann MD [address] [address] 03/16/2025 8:15 AM EST Office Visit [facility] [address] [address] Vianey Ann MD [address] [address] 06/28/2025 11:30 AM EDT Office Visit [facility] CARDIOLOGY [address] [place] [address] Cindy Scherer, COGNOS ANALYST [address] [place] [address] [place] [address] documented as of this encounter Visit Diagnoses Not on filedocumented in this encounter Care Teams Tower Control Operator Relationship Specialty Start Date End Date Vianey Ann MD [address] [address] PCP - General Family Medicine 10/19/14 documented as of this encounter
--- OUTSIDE RECORDS SUMMARY | 2024-11-30 10:41 | XMS_ITS | Encounter Summary ---
Author Organization [employer] ([place], [place], [place], [place]) Address [address] [place] [address] Care Team Providers Care Management Architect Name Role Phone Vianey Ann MD Primary Care Provider + [phone] Jewell Shay MD Unavailable [phone] Encounter Details Date Type Department Care Team (Late st Contact Info) Description 03/24/2019 Transcribed Document [facility] [place] [facility] [place] [address] ProviderFarhan MD [address] [place] [address] Social History Tobacco Use Types Packs/Day Years Used Date Smoking Tobacco: Never Assessed Comments Unknown Sex and Gender Information Value Date Recorded Sex Assigned at Not on file Legal Sex Female 3:07 PM CDT Gender Identity Not on file Sexual Orientation Not on file documented as of this encounter Miscellaneous Notes * Cerner Conversion Note - Farhan ProviderMD - 03/24/2019 2:45 PM PRINCIPAL ELECTRICAL ENGINEER DOUG Main OR PreOp Summary Primary Physician: JEWELL SHAY MD-OBG Finalized Date/Time: 03/24/19 17:31:59 Pt. Name: BEATRIS PERRYNai Mcelroy/Sex: 1970 Female Med Rec #: [id number] Physician: JEWELL SHAY MD-OBG Financial #: [id number] Pt. Type: O Room/Bed: EAS/2 Admit/Disch: 03/24/19 13:02:00 - Institution: [facility] [place] PreOp Case Times Entry 1 In Preop 03/24/19 13:10:00 Ready for Holding 03/24/19 14:00:00 Room Patient Ready for 03/24/19 14:00:00 Surgery Patient Out of Preop 03/24/19 14:30:00 Patient Out of n/a Holding Room Last Modified By: CAMDEN VILLEGAS RN 03/24/19 17:31:57 Nai PreOp Case Times Audit 03/24/19 17:31:57 Special Services Director: SIGIFREDO Modifier: [email or web address] <+> 1 Patient Out of Preop Finalized By: CAMDEN VILLEGAS, RN Document Signatures Signed By: CAMDEN VILLEGAS RN 03/24/19 17:31 documented in this encounter Plan of Treatment Not on file documented as of this encounter Visit Diagnoses Not on filedocumented in this encounter Care Teams Management Architect Relationship Specialty Start Date End Date Vianey Ann MD 107 [facility] 200 [place] [address] PCP - General Family Medicine 05/06/22 Jeewll Shay MD 160 [facility] [address] [place] [address] Referring Physician Obstetrics/Gynecology 05/06/22 documented as of this encounter
--- OUTSIDE RECORDS SUMMARY | 2024-11-30 10:41 | XMS_ITS | Encounter Summary ---
Author Organization [employer] ([place], [place], [place], [place]) Address [address] [place] [address] Care Team Providers Care Physician In Private Practice Name Role Phone Vianey Ann MD Primary Care Provider + [phone] Beulah Shay MD Unavailable [phone] Encounter Details Date Type Department Care Team (Late st Contact Info) Description 03/24/2019 Transcribed Document [facility] [place] Family [place] [facility] [place] [address] ProviderFarhan MD [address] [place] [address] Social History Tobacco Use Types Packs/Day Years Used Date Smoking Tobacco: Never Assessed Comments Unknown Sex and Gender Information Value Date Recorded Sex Assigned at Not on file Legal Sex Female 3:07 PM CDT Gender Identity Not on file Sexual Orientation Not on file documented as of this encounter Miscellaneous Notes * Cerner Conversion Note - Farhan Haddad MD - 03/24/2019 4:13 PM [employer] CENTRAL OFFICE INSTALLER Patient Education Materials Follows: General Anesthesia, Adult, Care After This sheet [...] activities are safe for you. ??? Take suxw-imt-cwcwtkt and prescription medicines only as told by [...] 05/03/2001 Document Revised: 09/10/2017 Document Reviewed: 09/10/2017 [employer] Interactive Patient Education ? 2019 [employer]. documented in this encounter Plan of Treatment Not on file documented as of this encounter Visit Diagnoses Not on filedocumented in this encounter Care Teams Physician In Private Practice Relationship Specialty Start Date End Date Vianey Ann MD 107 [facility] 200 [place] [address] PCP - General Family Medicine 05/06/22 Beulah Shay MD 160 [facility] [address] [place] [address] Referring Physician Obstetrics/Gynecology 05/06/22 documented as of this encounter
== END 2024-11-30 10:19 | disposition home or self-care (01) ==
LOC: ER 10:04
PROVIDERS: Emergency Provider Student in an Organized Health Care Education/Training Program; PCP Family Medicine
DX: S39.012A Strain of muscle, fascia and tendon of lower back, initial encounter (principal); X50.0XXA Overexertion from strenuous movement or load, initial encounter
CPT/HCPCS: 81001; 87086; 96372; 99283; 99284; J1885

== ENCOUNTER 2024-12-18 10:29 | Emergency (ER) | payer MEDICAID, SELFPAY ==
--- OUTSIDE RECORDS SUMMARY | 2020-06-07 13:28 | XMS_ITS | Encounter Summary ---
Author Organization [facility] Address [address] [place] [address] Care Team Providers Care Blueprinting Machine Operator Name Role Phone Vianey Ann MD Primary Care Provider [phone] [phone] Reason for Referral * Hospital - Outpatient (Routine) - Closed Specialty Diagnoses / Procedures Referred By Nisa lopez Referred To Contact Sleep Medicine Diagnoses Snoring Obstructive sleep apnea, adult Procedures Home Sleep Study Tony Chavarria MD [address] [place] [address] Phone: tel: fax: Tony Chavarria MD [facility] JAS[address]IR [address]ABB [address] [address] Phone: tel: fax: Referral ID Status Reason Start Date Expiration Date Visits Re quested Visits Authorized [id number] Closed 05/24/2020 07/23/2020 1 1 Reason for Visit * Hospital - Outpatient (Routine) - Closed Specialty Diagnoses / Procedures Referred By Nisa lopez Referred To Contact Sleep Medicine Diagnoses Snoring Obstructive sleep apnea, adult Procedures Home Sleep Study Tony Chavarria MD [address] [place] [address], [place] [address] Phone: tel: fax: Tony Chavarria MD [address] [facility] [address] [place] [address] Phone: tel: fax: Referral ID Status Reason Start Date Expiration Date Visits Re quested Visits Authorized [id number] Closed 05/24/2020 07/23/2020 1 1 Encounter Details Date Type Department Care Team (Latest Contact Info) Description 06/07/2020 2:28 PM EDT Hospital Encounter [facility] [address] [facility] [address] [place] [address] Tony Chavarria MD [address] [address], [address] [place] [address] Snoring; Obstructive sleep apnea, adult Social History Tobacco Use Types Packs/Day Years Used Date Smoking Tobacco: Never Passive Smoke Exposure: Past Smokeless Tobacco: Never Alcohol Use Standard Drinks/Week Comments Not Currently 0 (1 standard drink = 0.6 oz pur e alcohol) PHQ-2 Answer Date Recorded Retired PHQ-9: Brief Depression Severity Measure Score 0 04/13/2022 PHQ-2 Answer Date Recorded Patient Health Questionnaire-2 Score 0 03/15/2024 Comments No Sex and Gender Information Value Date Recorded Sex Assigned at Female 06/30/2024 10:54 AM EDT Legal Sex Female 11:01 AM EDT Gender Identity Not on file Sexual Orientation Straight 07/28/2024 2: 20 PM EDT documented as of this encounter Last Filed Vital Signs Vital Sign Reading Time Taken Comments Blood Pressure - - Pulse - - Temperature - - Respiratory Rate - - Oxygen Saturation - - Inhaled Oxygen Concentration - - Weight 89.1 kg (196 lb 8.3 oz) 06/07/2020 2:28 P M EDT Height 152.4 cm (5') 06/07/2020 2:28 PM EDT Body Mass Index 38.38 06/07/2020 2:28 PM EDT documented in this encounter Functional Status documented as of this encounter Plan of Treatment Upcoming Encounters Date Type Department Care Team (Late st Contact Info) Description 12/20/2024 4:00 PM EST Office Visit [facility] PRIMARY [facility]ARE 107 [facility] [address] [place] [address] Vianey Ann MD 107 [facility] [address] [place] [address] 12/26/2024 10:15 AM EST Office Visit [facility] PRIMARY [facility]ARE 107 [facility] 200 [place] [address] Vianey Ann MD [address] [address] 03/16/2025 8:15 AM EST Office Visit [facility] PRIMARY [facility]ARE [address] [address] Vianey Ann MD [address] [address] 06/28/2025 11:30 AM EDT Office Visit [facility] CARDIOLOGY [address] [place] [address] Cindy Scherer APRN [address] [place] [address] [place] [address] documented as of this encounter Procedures Procedure Name Priority Date/Time Associated Diagnosis Comments HST Routine 06/08/2020 9:57 PM EDT Snoring Obstructive sleep apnea, adult documented in this encounter Results * HST (06/08/2020 9:57 PM EDT) Narrative Tony Chavarria MD - 06/13/2020 12:46 PM EDT Home sleep apnea test with Yadira night 1 device report Patient Name: Beatris Perry Interpreting Physician: Tony Chavarria MD Date of : 1970 Referring Physician: Dr. Ann Primary Care Physician: Vianey Ann MD Date of Study: 06/07/2020 Clinical Information Patient is a 49 y.o. female. Who is seen for difficulties getting to sleep and staying asleep. She takes medication to help her sleep awakens frequently in the morning hours. She feels tired on arising. She has been told that she snores loudly. She has had apneas noted as well. She has a history of anxiety and depression stated weight is 197 pounds. Her height is 5 feet. Her body mass index is 37. Patient presents with an [place] Sleepiness Scale of 12/24 Methods used for Home Sleep Testing: Patient had a home sleep test with an [employer] One device that measured airflow at the nose and mouth. It measured thoracic respiratory effort using respiratory inductance plethysmography. It measured oxygen saturation and determined pulse rate. Body position was recorded. Snoring was judged by transducer vibration. It was scored using standard techniques. Raw study data was reviewed on epoch by epoch basis Home Sleep Testing Results TOTAL RECORDING TIME: Total Recording Time (TIB) (min): 603.1 minutes TOTAL MONITORING TIME: Total Sleep Time (TST)(min): 423 minutes SLEEP LATENCY: No data recorded Respiratory Data OBSTRUCTIVE APNEA INDEX Obstructive Apnea Index (#/hr TST): 0.4 OBSTRUCTIVE APNEA TOTAL Obstructive Apnea Total: 3 CENTRAL APNEA INDEX Central Apnea Index (#/hr TST): 0 CENTRAL APNEA TOTAL Central Apnea Total : 0 MIXED APNEA INDEX Mixed Apnea Index (#/hr TST): 0 MIXED APNEA TOTAL Mixed Apnea Total: 0 OBSTRUCTIVE HYPOPNEA INDEX Obstructive Hypopnea Index (#/hr TST): 3.3 OBSTRUCTIVE HYPOPNEA TOTAL Obstructive Hypopnea Total (#/hr TST): 23 TOTAL APNEA INDEX Total Apnea Index (#/hr TST): 0.4 AHI/ISRAEL: AHI: 3.7 RDI: RDI (if applicable): 3.7 Overall AHI is within normal limits. She had scattered snoring noted. OCCURRENCE OF JOSIAH BARTH Occurrence of Josiah Barth Breathing: no DURATION OF JOSIAH BARTH No data recorded Cardiac AVG HR DURING SLEEP Avg HR During Sleep: 75.9 bpm HIGHEST HR DURING SLEEP Highest HR During Sleep: 104 bpm Oximetry MIN SPO2 Min SpO2: 89 % O2 SATURATION, MEAN VALUE Arterial Oxygen Saturation, Mean Value (%): 96 % She spent less than a minute and desaturated state Diagnostic Respiratory Index Summary by Body Position Supine AHI/ISRAEL, TOTAL AHI, TOTAL : 0 RDI, TOTAL RDI, TOTAL : 0 Duration (Min) Duration (min) : 31.9 Left AHI/ISRAEL, TOTAL AHI, TOTAL : 6.3 RDI, TOTAL RDI, TOTAL : 6.3 Duration (Min) Duration (min) : 67.8 Right AHI/ISRAEL, TOTAL AHI, TOTAL : 4.7 RDI, TOTAL RDI, TOTAL: 4.7 Duration (Min) Duration (min) : 222.9 Prone AHI/ISRAEL, TOTAL No data recorded RDI, TOTAL No data recorded Duration (Min) No data recorded Upright AHI/ISRAEL, TOTAL No data recorded RDI, TOTAL No data recorded Duration (Min) No data recorded Impression: negative for apnea with some signs of upper airway obstruction and primary snoring Plan: would encourage weight loss , would encourage the patient to avoid alcohol and sedatives close to bedtime , would encourage lateral position sleep , could consider oral appliance therapy, repeat testing and Would consider further evaluation with an in lab polysomnogram for evaluation of her disturbed sleep. Follow-up: She is to follow-up with sleep clinic and follow-up with Dr. Seth Chavarria MD [facility] Sleep Medicine Pulmonary and Critical Care Medicine Electronically signed by: Tony Chavarria MD 06/13/20 12:40 EDT Tony Chavarria MD SLEEP CENTER ORDERABLES Final Re sult documented in this encounter Visit Diagnoses Diagnosis Snoring Other dyspnea and respiratory abnormality Obstructive sleep apnea, adult documented in this encounter Additional Health Concerns Infection Onset Date Last Indicated Resolved Time COVID Screen (preop/placement) 07/15/2020 07/15/2020 07/15/2020 8:09 AM EDT COVID Screen (preop/placement) 07/15/2020 07/15/2020 07/15/2020 4:34 PM EDT C.difficile (rule out) 10/08/2021 10/09/202110/14 9:08 PM EDT C.difficile (rule out) 11/19/2021 11/19/202111/24 9:08 PM EDT documented as of this encounter Care Teams Blueprinting Machine Operator Relationship Specialty Start Date End Date Vianey Ann MD [address] [address] PCP - General Family Medicine 10/19/14 documented as of this encounter
--- OUTSIDE RECORDS SUMMARY | 2020-07-18 18:45 | XMS_ITS | Encounter Summary ---
Author Organization [facility] Address [address] [place] [address] Care Team Providers Care Gravity Prospecting Observer Helper Name Role Phone Vianey Ann MD Primary Care Provider [phone] [phone] Reason for Referral * Hospital - Outpatient (Routine) - Closed Specialty Diagnoses / Procedures Referred By Nisa lopez Referred To Contact Sleep Medicine Diagnoses ROZINA (obstructive sleep apnea) Snoring Procedures Polysomnography 4 or More Parameters Tony Chavarria MD [address] [address], [facility] [address] [place] [address] Phone: tel: fax: [facility] [address] [address] Phone: tel: fax: Referral ID Status Reason Start Date Expiration Date Visits Re quested Visits Authorized [id number] Closed 06/17/2020 06/17/2021 1 1 Reason for Visit * Hospital - Outpatient (Routine) - Closed Specialty Diagnoses / Procedures Referred By Nisa lopez Referred To Contact Sleep Medicine Diagnoses ROZINA (obstructive sleep apnea) Snoring Procedures Polysomnography 4 or More Parameters Tony Chavarria MD 9 [facility] 1, [facility] [address] [place] [address] Phone: tel: fax: [facility] [address] [facility] [address] [place] [address] Phone: tel: fax: Referral ID Status Reason Start Date Expiration Date Visits Re quested Visits Authorized [id number] Closed 06/17/2020 06/17/2021 1 1 Encounter Details Date Type Department Care Team (Latest Contact Info) Description 07/18/2020 7:45 PM EDT Hospital Encounter [facility] [address] [facility] [address] [place] [id number] Tony Chavarria MD [address] [place] [address], [address] [id number] ROZINA (obstructive sleep apnea); Snoring Social History Tobacco Use Types Packs/Day Years [...] Sign Reading Time Taken Comments Blood Pressure 147/81 07/18/2020 8:38 PM EDT Pulse 125 07/18/2020 8:38 PM EDT Temperature - - Respiratory Rate - - Oxygen Saturation 95% 07/18/2020 8:38 PM EDT Inhaled Oxygen Concentration - - Weight 89.2 kg (196 lb 10.4 oz) 07/18/2020 8:38 PM EDT Height 152.4 cm (5') 07/18/2020 8:38 PM EDT Body Mass Index 38.41 07/18/2020 8:38 PM EDT documented in this encounter Functional Status documented as of this encounter Plan of Treatment Upcoming Encounters Date Type Department Care Team (Late st Contact Info) Description 12/20/2024 4:00 PM EST Office Visit [facility]IMARY [facility] [address] [address] Vianey Ann MD [address] [address] 12/26/2024 10:15 AM EST Office Visit [facility] [address] [address] Vianey Ann MD [address] [address] 03/16/2025 8:15 AM EST Office Visit [facility] [address] [address] Vianey Ann MD [address] [address] 06/28/2025 11:30 AM EDT Office Visit [facility] CARDIOLOGY [address] [place] [address] Cindy Scherer, ALEKS [address] [place] [address] documented as of this encounter Procedures Procedure Name Priority Date/Time Associated Diagnosis Comments NPSG Routine 07/19/2020 7:00 AM EDT ROZINA (obstructive sleep apnea) Snoring documented in this encounter Results * NPSG (07/19/2020 7:00 AM EDT) Narrative Tony Chavarria MD - 07/29/2020 8:28 PM EDT Polysomnography Report Patient Name: Beatris Perry Interpreting Physician: Tony Chavarria MD Date of : 1970 Referring Physician: No info available Primary Care Physician: Vianey Ann MD Date of Study: Clinical Information Patient is a 49 y.o. female. Who is seen for difficulties getting to sleep and staying asleep. She takes medication to help her sleep awakens frequently in the morning hours. She feels tired on arising. She has been told that she snores loudly. She has had apneas noted as well. She has a history of anxiety and depression she had a previous negative home sleep test and is sent now for a polysomnogram stated weight is 197 pounds. Her height is 5 feet. Her body mass index is 37. Patient presents with an [place] Sleepiness Scale of 12/24 Methods used for Diagnostic Study: Subject was monitored in the sleep laboratory. Electroencephalogram (C3/M2, C4/M1, F3/M2, F4/M1, 01/M2, O2/M1), EOG, EKG, and EMG (chin and bilateral anterior tibialis) were monitored by surface electrodes and recorded utilizing a computerized polygraph. Airflow was recorded by a thermistor and pressure transducer at the nose and mouth and oxygen saturation was recorded by a pulse oximeter. Thoracic and abdominal respiratory movements were recorded on 2 separate channels by respiratory inductive plethysmograph. Sleep stages were scored by standard techniques and abnormal respiratory events, cardiac arrhythmias, and leg movements were analyzed. Raw study data was reviewed on epoch by epoch basis Polysomnography Results Diagnostic Summary TOTAL RECORDING TIME: Total Recording Time (TIB) (min): 447.4 minutes TOTAL SLEEP TIME: Total Sleep Time (TST)(min): 316.5 minutes SLEEP LATENCY: Sleep Latency (min): 39.5 STAGE R. LATENCY: No data recorded SLEEP EFFICIENCY: Sleep Efficiency (%): 70.7 % WAKE AFTER SLEEP ONSET: Wake After Sleep Onset (WASO)(min): 91.4 minutes STAGE N1 DURATION: Stage N1 Duration (min): 119.5 minutes STAGE N1% TST Stage N1 % TST: 37.8 % STAGE N2 DURATION: Stage N2 Duration (min): 155 minutes STAGE N3% TST Stage N2 % TST: 49 % STAGE N2% TST Stage N3 Duration (min): 42 minutes She had diminished sleep efficiency and did not have REM sleep. STAGE N3 DURATION Stage N3 % TST: 13.3 % STAGE R DURATION Stage R Duration (min): 0 minutes STAGE R % TST Stage R % TST: 0 % LATENCY N1 FROM LIGHTS OUT Latency N1 from Lights Out (min): 39.5 minutes LATENCY N1 FROM SLEEP ONSET Latency N1 from Sleep Onset (min): 0 minutes LATENCY N2 FROM LIGHTS OUT Latency N2 from Lights Out (min): 60.5 minutes LATENCY N2 FROM SLEEP ONSET Latency N2 from Sleep Onset (min): 21 minutes LATENCY N3 FROM LIGHTS OUT Latency N3 from Lights Out (min): 117.5 minutes LATENCY N3 FROM SLEEP ONSET Latency N3 from Sleep Onset (min): 78 minutes LATENCY R FROM LIGHTS OUT No data recorded LATENCY R FROM SLEEP ONSET No data recorded Respiratory Data OBSTRUCTIVE APNEA INDEX Obstructive Apnea Index (#/hr TST): 0 OBSTRUCTIVE APNEA TOTAL Obstructive Apnea Total: 0 CENTRAL APNEA INDEX Central Apnea Index (#/hr TST): 0 CENTRAL APNEA TOTAL Central Apnea Total : 0 MIXED APNEA INDEX Mixed Apnea Index (#/hr TST): 0 MIXED APNEA TOTAL Mixed Apnea Total: 0 OBSTRUCTIVE HYPOPNEA INDEX Obstructive Hypopnea Index (#/hr TST): 0.8 OBSTRUCTIVE HYPOPNEA TOTAL Obstructive Hypopnea Total (#/hr TST): 4 TOTAL APNEA INDEX Total Apnea Index (#/hr TST): 0 AHI: AHI: 0.8 RDI: RDI (if applicable): 14.4 Overall AHI was within normal limits. She had scattered snoring NREM OAI NREM OAI (#/hr TST): 0 NREM MAMIE NREM MAMIE (#/hr TST): 0 NREM BESSY: NREM BESSY (#/hr TST): 0 NREM TOTAL AL NREM Total Al (#/hr TST): 0 REM OAI: No data recorded REM MAMIE: No data recorded REM BESSY No data recorded REM TOTAL AL No data recorded OCCURRENCE OF JOSIAH BARTH Occurrence of Josiah Barth Breathing: no DURATION OF JOSIAH BARTH No data recorded REM HYPOPNEA INDEX No data recorded REM HYPOPNEA TOTAL No data recorded APNEA TOTAL Total Apnea : 0 NREM HYPOPNEA INDEX NREM Hypopnea Index: 0.8 NREM HYPOPNEA TOTAL NREM Hypopnea (Total Count): 4 Arousals RESP AROUSAL INDEX Resp Arousal Index (#/hr TST): 2.3 LEG AROUSAL INDEX Leg Arousal Index (#/hr TST): 2.8 SPONTANEOUS AROUSAL INDEX No data recorded TOTAL AROUSAL INDEX Spontaneous Arousal Index (#/hr TST): 22.2 SNORE AROUSAL INDEX Total Arousal Index : 27.3 Limb Movements PLMS (TOTAL #) Total # PLMS: 16 PLMS INDEX Total # PLMS Arousals: 15 PLMS AROUSAL INDEX PLMS Index: 3 PLMS AROUSALS (TOTAL #) PLMS Arousal Index: 2.8 Cardiac AVG HR DURING SLEEP Avg HR During Sleep: 77.2 bpm HIGHEST HR DURING SLEEP Highest HR During Sleep: 102 bpm BRADYCARDIA Highest HR During Recordin bpm ASYSTOLE Bradycardia: no SINUS TACHYCARDIA DURING SLEEP Asystole: no NARROW COMPLEX TACHYCARDIA Sinus Tachycardia During Sleep: no WIDE COMPLEX TACHYCARDIA Narrow Complex Tachycardia: no HIGHEST HR DURING RECORDING Wide Complex Tachycardia: no ATRIAL FIBRILLATION Atrial Fibrillation: no OTHER ARRHTYMIAS No data recorded Oximetry MIN SPO2 Min SpO2: 86 % O2 SATURATION, MEAN VALUE Arterial Oxygen Saturation, Mean Value (%): 94 % She spent only 0.1 minutes and desaturated state Diagnostic Respiratory Index Summary by Body Position Supine AHI, REM AHI, REM : 0 AHI, NREM AHI, NREM : 1.5 AHI, TOTAL AHI, TOTAL : 1.5 RDI, REM RDI, REM : 0 RDI, NREM RDI, NREM : 17.4 RDI, TOTAL RDI, TOTAL : 17.4 TST (min) TST (MIN) : 124 AI, REM AI, REM : 0 AI, NREM AI, NREM : 0 AI, TOTAL AI, TOTAL : 0 HI, REM HI, REM : 0 HI, NREM HI, NREM : 1.5 HI, TOTAL HI, TOTAL : 1.5 Duration (Min) Duration (min) : 154.9 Left AHI, REM AHI, REM : 0 AHI, NREM AHI, NREM: 0 AHI, TOTAL AHI, TOTAL : 0 RDI, REM RDI, REM : 0 RDI, NREM RDI, NREM : 29 RDI, TOTAL RDI, TOTAL : 29 TST (min) TST (min) : 29 AI, REM AI, REM : 0 AI, NREM AI, NREM : 0 AI, TOTAL AI, TOTAL : 0 HI, REM HI, REM : 0 HI, NREM HI, NREM : 0 HI, TOTAL HI, TOTAL : 0 Duration (Min) Duration (min) : 33.2 Right AHI, REM AHI, REM : 0 AHI, NREM AHI,NREM: 0.4 AHI, TOTAL AHI, TOTAL : 0.4 RDI, REM RDI, REM: 0 RDI, NREM RDI, NREM : 9.6 RDI, TOTAL RDI, TOTAL: 9.6 TST (min) TST (min) : 162 AI, REM AI, REM : 0 AI, NREM AI, NREM : 0 AI, TOTAL AI, TOTAL : 0 HI, REM HI, REM : 0 HI, NREM HI, NREM : 0.4 HI, TOTAL HI, TOTAL : 0.4 Duration (Min) Duration (min) : 167.3 Prone AHI, REM AHI, REM : 0 AHI, NREM AHI, NREM : 0 AHI, TOTAL AHI, TOTAL : 0 RDI, REM RDI, REM : 0 RDI, NREM RDI, NREM : 0 RDI, TOTAL RDI, TOTAL : 0 TST (min) TST (min) : 1.5 AI, REM AI, REM : 0 AI, NREM AI, NREM : 0 AI, TOTAL AI, TOTAL : 0 HI, REM HI, REM : 0 HI, NREM HI, NREM : 0 HI, TOTAL HI, TOTAL : 0 Duration (Min) Duration (min) : 2.1 Upright AHI, REM No data recorded AHI, NREM No data recorded AHI, TOTAL No data recorded RDI, REM No data recorded RDI, NREM No data recorded RDI, TOTAL No data recorded TST (min) No data recorded AI, REM No data recorded AI, NREM No data recorded AI, TOTAL No data recorded HI, REM No data recorded HI, NREM No data recorded HI, TOTAL No data recorded Duration (Min) No data recorded Impression: negative for apnea with some signs of upper airway obstruction, poor sleep efficiency, primary snoring and decreased REM sleep Plan: would encourage weight loss , would encourage the patient to avoid alcohol and sedatives close to bedtime , would encourage lateral position sleep , could consider oral appliance therapy and Would encourage the patient to practice excellent sleep hygiene Follow-up: She is to follow-up in sleep clinic and follow-up with Dr. Seth Chavarria MD [facility] Sleep Medicine Pulmonary and Critical Care Medicine Electronically signed by: Tony Chavarria MD 07/29/20 20:21 EDT Tony Chavarria MD SLEEP CENTER ORDERABLES Final Re sult documented in this encounter Visit Diagnoses Diagnosis ROZINA (obstructive sleep apnea) Obstructive sleep apnea (adult) (pediatric) Snoring Other dyspnea and respiratory abnormality documented in this encounter Additional Health Concerns Infection Onset Date Last Indicated Resolved Time C.difficile (rule out) 10/08/2021 10/09/202110/14 9:08 PM EDT C.difficile (rule out) 11/19/2021 11/19/202111/24 9:08 PM EDT documented as of this encounter Care Teams Gravity Prospecting Observer Helper Relationship Specialty Start Date End Date Vianey Ann MD [address] [place] [address] PCP - General Family Medicine 10/19/14 documented as of this encounter
--- OUTSIDE RECORDS SUMMARY | 2020-08-22 07:00 | XMS_ITS | Encounter Summary ---
Author Organization [facility] Address [address] [place] [address] Care Team Providers Care Nuclear Physician Name Role Phone Vianey Ann MD Primary Care Provider [phone] Reason for Referral * Diagnostic Imaging (Routine) - Closed Specialty Diagnoses / Procedures Referred By Contanthony t Referred To Contact Sleep Medicine Diagnoses Excessive daytime sleepiness Insomnia, unspecified type Procedures EEG [place], ALEKS [address] [address], [address] [address] Phone: tel: fax: [facility] [address] [place] [address] Phone: tel: Referral ID Status Reason Start Date Expiration Date Visits Re quested Visits Authorized [id number] Closed 07/25/2020 07/25/2021 1 1 Reason for Visit * Diagnostic Imaging (Routine) - Closed Specialty Diagnoses / Procedures Referred By Contac t Referred To Contact Sleep Medicine Diagnoses Excessive daytime sleepiness Insomnia, unspecified type Procedures EEG [place] APRN [address] [address], [address] [address] Phone: tel: fax: [facility] [address] [place] [address] Phone: tel: Referral ID Status Reason Start Date Expiration Date Visits Re quested Visits Authorized [id number] Closed 07/25/2020 07/25/2021 1 1 Encounter Details Date Type Department Care Team (Latest Contact Info) Description 08/22/2020 8:00 AM EDT Hospital Encounter [facility] [address] [place] [address] [place] Janet, FAMILY HEALTH NURSE PRACTITIONER 7[address] [facility] 1, [place] [address] [place] [address] Excessive daytime sleepiness; Insomnia, unspecified type Social History Tobacco Use Types Packs/Day Years [...] PM EDT documented as of this encounter Functional Status documented as of this encounter Plan of Treatment Upcoming Encounters Date Type Department Care Team (Late st Contact Info) Description 12/20/2024 4:00 PM EST Office Visit [facility] [address] [address] Vianey Ann MD [address] [address] 12/26/2024 10:15 AM EST Office Visit [facility] [address] [address] Vianey Ann MD [address] [facility] [address] [place] [address] 03/16/2025 8:15 AM EST Office Visit [facility] [address] [facility] [address] [place] [address] Vianey Ann MD 107 [facility] 200 [place] [address] 06/28/2025 11:30 AM EDT Office Visit [facility] [address] [place] [address] Cindy Scherer APRN [address] [place] [address] [place] [address] documented as of this encounter Procedures Procedure Name Priority Date/Time Associated Diagnosis Comments EEG AWAKE OR DROWSY ROUTINE Routine 08/22/2020 8:59 AM EDT Excessive daytime sleepiness Insomnia, unspecified type documented in this encounter Results * EEG AWAKE OR DROWSY ROUTINE (08/22/2020 8:59 AM EDT) Impressions NEUROLOGY - 08/22/2020 10:24 AM EDT Normal EEG in the awake and asleep states No epileptiform activity is seen This report is transcribed using the Flashpoint dictation system. Narrative NEUROLOGY - 08/22/2020 10:24 AM EDT Reason for referral: 49 y.o.female with excessive daytime somnolence, consideration of seizures Technical Summary: A 19 channel digital EEG was performed using the international 10 2 0 placement system, including eye leads and EKG leads. Duration: 22 minutes Video: On Findings: The awake tracing shows a medium amplitude well-regulated 9 Hz posterior rhythm present symmetrically of the occipital leads. Low to medium amplitude theta and alpha activity are seen anteriorly. Photic stimulation does not change the background. Hyperventilation yields mild slowing of the background but no epileptiform abnormality. Stage II sleep is seen with vertex waves and sleep spindles. No focal slowing or epileptiform activity is seen. EKG: Regular, 70 bpm us [place] APRN NEUROLOGY ORDERABLE S Final Result NEUROLOGY documented in this encounter Visit Diagnoses Diagnosis Excessive daytime sleepiness Insomnia, unspecified type documented in this encounter Additional Health Concerns Infection Onset Date Last Indicated Resolved Time C.difficile (rule out) 10/08/2021 10/09/202110/14 9:08 PM EDT C.difficile (rule out) 11/19/2021 11/19/202111/24 9:08 PM EDT documented as of this encounter Care Teams Nuclear Physician Relationship Specialty Start Date End Date Vianey Ann MD [address] [place] [address] PCP - General Family Medicine 10/19/14 documented as of this encounter
[2024-12-18] VITALS (8 sets, daily range): BP systolic 104–120; BP diastolic 65–82; PULSE 102–108; RESP 20; TEMP 36.9–37; O2SAT 97–100; BMI 35.2
--- OUTSIDE RECORDS SUMMARY | 2024-12-18 10:54 | XMS_ITS | Encounter Summary ---
Author Organization [facility] Address [address] [place] [address] Care Team Providers Care Supervisor Warping Department Name Role Phone Vianey Ann MD Primary Care Provider [phone] Encounter Details Date Type Department Care Team (Late st Contact Info) Description 08/17/2024 Results Follow-Up [facility] [address] [address] Vianey Ann MD [address] [address] Social History Tobacco Use Types [...] Description 12/20/2024 4:00 PM EST Office Visit [facility] 107 [facility] [address] [place] [address] Vianey Ann MD [address] [address] 12/26/2024 10:15 AM EST Office Visit [facility] 107 [facility] [address] [place] [address] Vianey Ann MD [address] [address] 03/16/2025 8:15 AM EST Office Visit [facility] [address] [address] Vianey Ann MD [address] [address] 06/28/2025 11:30 AM EDT Office Visit [facility] C[facility] [address] [place] [address] Cindy Scherer, ALEKS [address] [place] [address] [place] [address] documented as of this encounter Visit Diagnoses Not on filedocumented in this encounter Care Teams Supervisor Warping Department Relationship Specialty Start Date End Date Vianey Ann MD [address] [address] PCP - General Family Medicine 10/19/14 documented as of this encounter
--- OUTSIDE RECORDS SUMMARY | 2024-12-18 10:54 | XMS_ITS | Clinical Summary ---
Author Organization [facility] Address [address] [place] [address] Care Team Providers Care Journeyman Plumber Name Role Phone Vianey Ann MD Primary Care Provider [phone] Allergies Active Allergy Reactions Criticality Noted Date [...] 270 tablet 3 12/10/19 24 Active rizatriptan LOGISTICS COORDINATOR (MAXALT-LOGISTICS COORDINATOR) 10 MG disintegrating tabletIndications: Migraine with aura [...] Per Week. 2 mL 11/18/19 25 Active Active Problems Problem Noted Date Diagnosed Date [...] No change today on SNRI. Has seen business banker for hormone replacement therapy. Night sweats 11/10/2023 [...] benign finding 08/15/2015 07/07/2024 Overview (08/15/2015): Description: 04-26-14. Sore throat 08/15/2015 12/06/2018 Endometriosis 05/21/2015 07/28/2024 Encounters Date Type Department Care Team Description 09/27/2024 10:15 AM EDT Office Visit [facility] [address] [place] [id number] Vianey Ann MD Class 1 obesity due to excess calories with serious comorbidity and body mass index (BMI) of 34.0 to 34.9 in adult (Primary Dx); Obstructive sleep apnea; Insomnia, unspecified type; Mixed anxiety and depressive disorder; Menopausal flushing 09/27/2024 Travel from Last 3 Months Immunizations Immunization Administration Dates Next Due COVID-19 (RAP Index) Purple Cap Monovalent 05/03/19 21,04/05/2020 Flu Vaccine Intradermal Quad 18-64YR 12/15/2007, 11/23/2006 [...] History Relation Name Comments Cancer Father Jonathan Royse Throat & esphag us Cancer Maternal Grandfather Elaine Mathew brain Diabetes Maternal Grandfather Elaine Mathew Obesity Maternal Grandfather Elaine Mathew Thyroid disease Maternal Grandfather Elaine Mathew Arthritis Maternal Grandmother Rodrigo Mathew Cancer Maternal Grandmother Rodrigo Mathew colon Colon cancer Maternal Grandmother Rodrigo Mathew Diabetes Maternal Grandmother Rodrigo Matehw Obesity Maternal Grandmother Rodrigo Mathew Thyroid disease Maternal Grandmother Rodrigo Mathew Hyperlipidemia Mother Dimple Son Vision loss Mother Dimple Son Cancer Paternal Grandmother Carolina Chewe lymph ruth Cancer Paternal Uncle Ankit Rovince Melanoma Cirrhosis Sister Arina Matos non alcoholic [...] Description 12/20/2024 4:00 PM EST Office Visit [facility] [address] [phone] Vianey Ann MD [address] [address] 12/26/2024 10:15 AM EST Office Visit [facility] 107 [facility] [address] [place] [address] Vianey Ann MD 107 [facility] [address] [place] [address] 03/16/2025 8:15 AM EST Office Visit [facility] 107 [facility] [address] [place] [address] Vianey Ann MD 107 [facility] [address] [place] [address] 06/28/2025 11:30 AM EDT Office Visit [facility] [address] [place] [address] Cindy Scherer, FINNISH RUBBER [address] [place] [address] [place] [address] Health Maintenance Due Date Last Done Comments COLOGUARD 2017 COLON CANCER SCREENING 5 YEA R SIGMOIDOSCOPY 2017 [address] COLONOGRAPHY 2017 FECAL OCCULT BLOOD TEST 2017 FIT Testing (1 year) 2017 INFLUENZA VACCINE 09/08/2024 03/24/2024, , 11/13/2019, Additional history exists ANNUAL PHYSICAL 03/15/2025 03/15/2024, 12/06/2018 LIPID PANEL 03/15/2025 03/15/2024, 06/2023, 04/13/2022, Additional history exists MAMMOGRAM 08/17/2026 08/17/2024, 04/2024, 07/07/2023, Additional history exists COLONOSCOPY 11/27/2031 11/26/2021, 08/01/2018 COLORECTAL CANCER SCREENING 11/27/2031 TDAP/TD VACCINES (6 - Td or Tdap) 06/05/2034 06/05/2024, 02/12/2023, 09/05/2014, Additional history exists HEPATITIS C SCREENING Completed 03/01/2020 Annual Gynecologic Pelvic an d Breast Exam Discontinued 04/26/2023, 07/02/2015 Pneumococcal Vaccine 50+ Completed 06/05/2024 ZOSTER VACCINE Completed 06/07/2024, 03/24/2024 Procedures Procedure Name Priority Date/Time Associated Diagnosis Comments SCANNED - LABS 11/30/2024 SCANNED - LABS 11/30/2024 MAMMO SCREENING DIGITAL TOMOSYNTHESIS BILATERAL W CAD [...] Recently Relevant to Health Maintenance Results * LABS SCANNED (11/30/2024) Only the most recent of2 resultswithin the time period is included. us Vianey Ann MD LAB BLOOD ORDERABLES Danae l Result * Mammo Screening Digital Tomosynthesis Bilateral With [...] mammographic images were obtained with tomosynthesis. COMPARISON: [facility] mammograms dated 07/07/2023, 05/06/2022, 04/27/2021, 10/17/2020, [...] distortion, or other secondary signs of malignancy. Vianey Ann MD IMG MAMMOGRAPHY ORDERABLE S [...] - 03/16/2024 3:07 AM EST Performed at: [address] [place] [id number] Gum Mixer: Charly Holland MD, Phone: [phone] Patient Fasting: Y Vianey Ann MD LAB BLOOD ORDERABLES Danae l Result [facility] (AMBULATORY) [address] [place] [address], [facility] [address] [place] [address], [place] [phone] * PAP SMEAR SCANNED (04/26/2023) Vianey Ann MD CHART REVIEW TABS Danae l Result * SCANNED - COLONOSCOPY (11/26/2021) Arnav Wellington MD CHART REVIEW TABS Final Result * Hepatitis C Antibody (03/01/2020 3:36 PM EST) Hep C Virus Ab <0.1 0.0 - 0.9 s/co ratio [facility] Comment: Negative: < 0.8 Indeterminate: 0.8 - 0.9 Positive: > 0.9 The CDC recommends that a positive HCV antibody result be followed up with a HCV Nucleic Acid Amplification test (644778). Blood 03/01/2020 3:36 PM EST 03/01/2020 Narrative [facility] (AMBULATORY) - 03/02/2020 5:08 AM EST Performed at: 02 - [facility] [address] [place], [place] [id number] Gum Mixer: Oleksandr Martins PhD, Phone: [phone] Patient Fasting: N Melvi Wagoner FINNISH RUBBER LAB BLOOD ORDERABLES F inal Result [facility] (AMBULATORY) [address] [place] [address], [facility] [address] [place] [address], from Last 3 Months or Most Recently Relevant to Health Maintenance Insurance [employer] Care Teams Journeyman Plumber Relationship Specialty Start Date End Date Vianey Ann MD 107 [facility] [address] [place] [address] PCP - General Family Medicine 10/19/14
--- NOTE | 2024-12-18 10:56 | ED_ITS ---
<Statement entered by Bashir Chamorro MD - 12/18/24 13:20> Bashir Chamorro MD: I was consulted by the KAY, and we discussed the complexity of the problems being addressed. I approved the treatment and management plan for this patient's care in the emergency department, thus performing a substantive portion of the medical decision making. Discharge Plan Disposition Patient Disposition: Home, Self-Care Condition: Good Prescriptions Prescriptions: New prednisone 10 mg tablet 10 mg PO DAILY Qty: 7 0RF No Action methocarbamol 500 mg tablet 500 mg PO QID PRN (Reason: muscle spasm) Qty: 120 0RF lidocaine 5 % adhesive patch,medicated 1 patch topical DAILY Qty: 15 0RF Rx Instructions: leave on most painful area for up to 12 hrs Referrals Follow up/Referrals: Rheumatology ([place]) [Provider Group, Rheumatology] - See instructions Vianey Ann MD [Primary Care Provider, Medical] - See instructions Activity Restrictions/Add. Instructions Additional Instructions/Restrictions: Please return to the emergency department with any worsening signs or symptoms. Please follow-up with your primary care doctor and rheumatology in the upcoming days/weeks. Please take your steroid medication as prescribed with food. Clinical Impressions Clinical Impression: Polyarthralgia Instructions Patient Instructions: Autoimmune Disease and Women, DI for Arthralgia, DI for Rheumatoid Arthritis Print Language Print Language: Botswanan Discharge ED Provider: Bashir Chamorro General Adult HPI General Chief complaint: PAIN Stated complaint: joints are hurting alot of pain Time Seen by Provider: 12/18/24 10:32 Mode of Arrival: Ambulatory Source of Information: Patient Description of Symptoms (Recalled from ER Triage Doc. by RN): pt is here for all over joint pain x 3 days denies any n/v or fever, no rashes or hx of autoimmune disorders History of Present Illness HPI narrative: 54-year-old female presents to the emergency department with a 1 week history of diffuse arthralgias, worse in the last 3 days, to include her bilateral shoulders, bilateral hips, low back, bilateral ankles, knees, and wrists. Patient denies any injury or trauma per history, patient states that she has pain at rest, worse at night , when she is lying in bed, somewhat decreased pain/severity with movement, denies any fever chills chest pain shortness of breath nausea vomiting, does have IBS-C with constipation, at baseline bowel movements, no urinary type symptomatology, no numbness or tingling, no radicular type symptomatology, no saddle anesthesia, no urinary bladder or bowel dysfunction, no hematuria, no hematemesis no hemoptysis, no lightheaded no dizziness, no headache, no history of tobacco use, no history of alcohol or other drug use. Other past medical history is consistent with ANAYELI/MDD, GERD, on chronic doxycycline p.o. antibiotic therapy for rash , across patient's face, she is seen and treated by dermatology and placed on medication for this by dermatology initial triage vitals are unremarkable. Also of note, patient provided me messages from her PCP, patient has slated follow-up appointment on Wednesday of this week, PCP would like if able to obtain laboratory studies to include CRP ESR rheumatoid factor and BRENDA to help jumpstart/initiate the patient's workup Please note that above description of symptoms, in this electronic medical record under categorization of recalled from ER triage doctor by RN are reflective of an initial nursing assessment, however, is not reflective of my full history and physical exam that was personally taken and clarified. Consequentially, this preceding description of symptoms, which may include the patient's categorized chief complaint in the EMR, do not reflect my personal clinical impression, and the ultimate description of history of present illness and patient stated complaints should be deferred to this section of the note. Unless stated otherwise or congruent with this section of the note, additional signs, symptoms, or incongruence should be interpreted as inaccurate with my clinical impression. Onset (ago): day(s) Related Data Previous Rx's ?Medication ?Instructions ?Recorded lidocaine 5 % topical patch 1 patch topical DAILY #15 ea 11/30/24 methocarbamol 500 mg tablet 500 mg PO QID PRN muscle s pasm 11/30/24 #120 tabs prednisone 10 mg tablet 10 mg PO DAILY #7 tabs 12/18 Allergies Allergy/AdvReac Type Severity Reaction Status Date / Time No Known Allergies Allergy Verified 11/30/24 09:34 [facility] Disclaimer: The information contained in this section may have been updated after the patient was seen, as this information can be updated by other users. Social History (Updated 11/30/24 @ 10:46 by Jairo Hidalgo MD) Smoking Status: Never smoker alcohol intake: never current occupational status: employed Travel in the last 8 weeks?: None Have you lived/traveled outside US in past 30 days?: No Contact w/someone who lives/traveled outside US past 30 days?: No Exposure to someone with infectious disease in past 14 days?: No Do you have a fever (greater than 100.4 F or 38 C)?: No Have you tested positive for COVID-19?: No Exposed to someone with COVID-19 in past 14 days?: No Do you have a sore throat?: No Do you have a cough?: No Do you have any weakness?: No Do you have any diarrhea?: No Are you experiencing any unusual bleeding?: No Do you have any muscle aches/pain?: No Do you have any abdominal pain?: No Are you experiencing loss of taste or smell?: No ROS Obtained: Yes All systems reviewed & no additional complaints except as documented Physical Exam General General appearance: alert and in no apparent distress Head Head exam: atraumatic and normocephalic Eye Eye exam: Present PERRL and EOMI ENT ENT exam: Present mucous membranes moist Neck Neck exam: Present normal inspection Chest Chest inspection: Present normal inspection and symmetric chest wall rise Respiratory Respiratory exam: Present normal lung sounds bilaterally; Absent respiratory distress Cardiovascular Cardiovascular exam: Present regular rate and normal rhythm Abdominal Exam Abdominal exam: Present soft; Absent tenderness Extremities Exam Extremities exam: Present normal inspection, full ROM, tenderness and other (No real joint swelling or edema, no erythema, no hot to touch sensation around the patient's joints, patient has pain palpation diffusely to all joints affected, otherwise neurovascular intact); Absent edema or joint swelling Neurological Exam Neurological exam: Present alert, oriented X3 and other (5 out of 5 strength in the bilateral lower and upper extremities, no gross sensation deficit.) Psychiatric Psychiatric exam: Present normal affect Skin Skin exam: Present warm, dry and other (Some sclerotic appearing of the nails, on the third digit of the left hand, some appearance of what looks to be onychomycosis) Medical Decision Making Medical Records Medical records reviewed: Yes I reviewed the patient's medical records. Screening: Per USPSTF and CDC recommendations, given the prevalence of disease in our region, it is our hospital?s policy to screen for HIV and viral Hepatitis for all patients aged 18 and over and those with ongoing risk factors. Rick Inquiry Pt receiving controlled substance: No Rick was queried for this patient: No Vital Signs: 12/18/24 10:30 12/18/24 11:00 12/18/24 11:15 Temperature 98.6 F Temperature Source Oral Pulse Rate 108 H 103 H Pulse Rate [Left Radial] 102 H Respiratory Rate 20 Blood Pressure 120/82 118/65 Blood Pressure [Right Arm] 114/76 Blood Pressure Mean [Right Arm] 88 02 Sat by Pulse Oximetry 99 100 100 Oxygen Delivery Method Room Air 12/18/24 11:30 12/18/24 11:45 12/18/24 12:00 Temperature Temperature Source Pulse Rate 102 H 103 H 103 H Pulse Rate [Left Radial] Respiratory Rate Blood Pressure 120/71 107/76 L 104/78 L Blood Pressure [Right Arm] Blood Pressure Mean [Right Arm] 02 Sat by Pulse Oximetry 100 98 99 Oxygen Delivery Method 12/18/24 12:15 Temperature Temperature Source Pulse Rate 104 H Pulse Rate [Left Radial] Respiratory Rate Blood Pressure 116/79 Blood Pressure [Right Arm] Blood Pressure Mean [Right Arm] 02 Sat by Pulse Oximetry 97 Oxygen Delivery Method Lab Data Lab results reviewed: Yes I reviewed the patient's lab results. Lab Results 12/18/24 11:38: WBC 6.8, RBC 4.73, Hgb 13.9, Hct 39.8, MCV 84.1, MCH 29.4, MCHC 34.9, RDW 12.9, Plt Count 291, MPV 9.8, Neut % (Auto) 63.9, Lymph % (Auto) 24.4, [place] % (Auto) 9.0, Eos % (Auto) 1.8, Baso % (Auto) 0.6, Neut # (Auto) 4.4, Lymph # (Auto) 1.7, [place] # (Auto) 0.6, Eos # (Auto) 0.1, Baso # (Auto) 0.0, ESR 29, S odium 134 L, Potassium 3.7, Chloride 100, Carbon Dioxide 27, Anion Gap 10.7, BUN 10, Creatinine 1.00, Estimated Creat Clear 85, Estimated GFR 58 L, Est GFR ( Amer) 70, Glucose 86, Calcium 9.2, Total Bilirubin 0.7, AST 34, ALT 36, Alkaline Phosphatase 130 H, C-Reactive Protein 34.0 H, Total Protein 8.3 H, Albumin 4.5, Globulin 3.8 H, Albumin/Globulin Ratio 1.2 12/18/24 11:38 12/18/24 11:38 Orders (Tests/Meds): ED MEDICATIONS Discontinued Medications Generic Name Dose Route Start Last Admin Trade Name Rodri PRN Reason Stop Dose Admin Acetaminophen 500 mg 12/18/24 11:10 12/18/24 11:54 Acetaminophen 500mg Tab PO 12/18/24 11:11 500 mg ONCE ONE Administration Ibuprofen 600 mg 12/18/24 11:09 12/18/24 11:54 Ibuprofen 600 Mg Tablet PO 12/18/24 11:10 600 mg ONCE ONE Administration ORDERS Category Date Time Status BRENDA w/Reflex if Positive Stat Lab 12/18/24 11:38 Received CRP [C-Reactive Protein] Stat Lab 12/18/24 11:38 Completed Complete Blood Count Auto Diff Stat Lab 12/18/24 11:38 Completed Comprehensive Metabolic Panel Stat Lab 12/18/24 11:38 Completed ESR [Erythrocyte Sedimentation Rate] Stat Lab 12/18/24 11:38 Completed Rheumatoid Factor IGA Stat Lab 12/18/24 11:38 Received Rheumatoid Factor IGM Stat Lab 12/18/24 11:38 Received Medical Decision Narrative: 54-year-old female presents emergency department with diffuse arthralgias for the last week, see HPI for detail past medical history, differential diagnose include but not limited to, rheumatoid arthritis, osteoarthritis, other rheumatologic disease, overuse injury, among others. I discussed this patient's case with the attending physician Dr. Chamorro Will obtain basic laboratory studies, ESR CRP BRENDA, RF, IgM/IgA, will give the patient 600 mg p.o. Motrin and 500 mg p.o. Tylenol for symptomatic relief here in the emergency department. CBC unremarkable CMP is notable for mild hyponatremia 134 otherwise unremarkable. CRP is elevated at 34 ESR within normal limits. I discussed the results with the patient at the bedside, patient will follow-up with her PCP in the upcoming days, advised her to call/check her medical records for results of BRENDA/rheumatoid factor to help jumpstart the patient's workup. Will prescribe the patient 10 mg prednisone p.o. daily for 7 days or until PCP/rheumatology follow-up. Most likely has underlying autoimmune/rheumatologic disease. Patient does not fit the clinical picture for septic arthritis, as patient has no erythema no fever no white count, and ranges joints/extremities to command with good passive and active range of motion. No obvious joint effusion/edema to my exam patient was given strict ED return precautions. Patient voiced understanding and agreement with the current treatment plan/discharge plan. Once again follow-up with PCP and rheumatology in the upcoming days/weeks Critical Care Critical Care Time Critical Care Time: No
[2024-12-18 11:53] LABS: Hematocrit 39.8 % (37.0-47.0); Hemoglobin 13.9 g/dL (12.2-16.2); Immature Granulocytes % 0.3 %; Mean Corpuscular HGB Conc 34.9 g/dL (31.8-35.4); Mean Corpuscular Hemoglobin 29.4 pg (27.0-31.2); Mean Corpuscular Volume 84.1 fl (81-99); Nucleated Red Blood Cells % 0 %; Platelet Count 291 K/mm3 (142-424); Red Blood Count 4.73 M/mm3 (4.20-5.40); Red Cell Distribution Width-SD 39.7 fL; White Blood Count 6.8 K/mm3 (4.8-10.8)
[2024-12-18] MEDS: ACETAMINOPHEN 500MG TAB 500 MG PO (11:54)
[2024-12-18] MEDS: IBUPROFEN 600 MG TABLET PO (11:54)
[2024-12-18 12:03] LABS: Alanine Aminotransferase 36 U/L (12-78); Albumin Level 4.5 g/dl (3.5-5.0); Albumin/Globulin Ratio 1.2 (1.1-1.8); Alkaline Phosphatase 130 U/L (38-126); Anion Gap 10.7 mEq/L (5-15); Aspartate Amino Transferase 34 U/L (14-36); Bilirubin,Total 0.7 mg/dl (0.2-1.3); Blood Urea Nitrogen 10 mg/dl (7-17); Calcium 9.2 mg/dl (8.4-10.2); Carbon Dioxide 27 mmol/L (22.0-30.0); Chloride 100 mmol/L (98-107); Creatinine Clearance Estimated 85 mL/min (50-200); Creatinine,Serum 1.00 mg/dl (0.52-1.04); Estimated Glomerular Filt Rate 58 ml/min (>60); GFR (African American) 70 ML/MIN (>60); Globulin 3.8 g/dL (1.3-3.2); Glucose 86 mg/dl (74-100); Potassium 3.7 mmoL/L (3.5-5.1); Sodium 134 mmol/L (136-145); Total Protein,Serum 8.3 g/dl (6.3-8.2)
[2024-12-18 12:08] LABS: C-Reactive Protein 34.0 mg/L (0-4)
[2024-12-19 12:12] LABS: Antinuclear Antibodies (ANA) Negative (Negative)
== END 2024-12-18 12:58 | disposition home or self-care (01) ==
PROVIDERS: Physician Assistant; Emergency Provider Emergency Medicine; PCP Family Medicine
DX: M25.50 Pain in unspecified joint (principal)
CPT/HCPCS: 80053; 85025; 85651; 86140; 99283; 99284